=== PATIENT | male | born 1995 | race Caucasian/White ===

== ENCOUNTER 2021-05-12 20:30 | Inpatient (IN) | payer MEDICAID, OTHER ==
--- NOTE | 2021-05-12 21:46 | ED ---
Psych HPI - General Chief Complaint: Psychiatric Symptoms Stated Complaint: Mental Health Time Seen by Provider: 05/12/21 21:14 Source: patient, police Mode of arrival: ambulatory Limitations: no limitations - History of Present Illness Initial Comments: this patient is a 26-year-old man brought by law enforcement to have psychiatric evaluation. The patient does admit to making suicidal statements, but states that he had been drinking and he was upset. The patient states that he had attempted to report to alcohol rehabilitation today as a told him they may be able to get him into a program, but that after he got there they told him they could not put him in the program today. He is supposed to go back tomorrow instead. The patient states that he was a little upset about that, drank and made some statements out of frustration. MD Complaint: other -: hour(s) Associated Psychiatric Symptoms: none Quality: resolved prior to arrival Improves With: none Worsens With: none Context: recent alcohol abuse Associated Symptoms: denies other symptoms - Related Data Home Medications Medication Instructions Recorded Confirmed Cetirizine HCl [Zyrtec] 1 tab PO DAILY 05/13/21 05/13/21 Previous Rx's Medication Instructions Recorded Albuterol Inhaler [Ventolin Hfa 2 puff INHALATION Q4HR PRN #1 each 05/18/21 Inhaler] Folic Acid 1 mg PO DAILY 30 Days tab 05/18/21 Multivitamins, Thera [Multivitamin 1 each PO DAILY 30 Days tab 05/18/21 (formulary)] Nicotine 14Mg/24Hr Patch [Habitrol] 1 patch TRANSDERM DAILY 14 Days 05/18/21 patch Sertraline [Zoloft] 50 mg PO DAILY 30 Days tab 05/18/21 Thiamine [Vitamin B-1] 100 mg PO DAILY 30 Days tab 05/18/21 Allergies Allergy/AdvReac Type Severity Reaction Status Date / Time latex Allergy Rash/Hives Verified 05/13/21 15:12 Penicillins Allergy Rash/Hives Verified 05/13/21 05:09 Review of Systems ROS Statement: Those systems with pertinent positive or pertinent negative responses have been documented in the HPI. ROS Other: All systems not noted in ROS Statement are negative. Constitutional: Denies: fever, chills Respiratory: Denies: cough, dyspnea Cardiovascular: Denies: chest pain, palpitations Gastrointestinal: Denies: abdominal pain, vomiting, diarrhea Musculoskeletal: Denies: back pain Skin: Denies: rash Neurological: Denies: headache, weakness Psychiatric: Reports: as per HPI, depression. Denies: auditory hallucinations, visual hallucinations, homicidal thoughts, suicidal thoughts Past Medical History Past Medical History: Asthma History of Any Multi-Drug Resistant Organisms: None Reported Additional Past Surgical History / Comment(s): sinus surgery Past Psychological History: Anxiety Smoking Status: Current every day smoker Past Alcohol Use History: Abuse, Daily, Heavy Past Drug Use History: None Reported General Exam Limitations: no limitations General appearance: alert, in no apparent distress Head exam: Present: atraumatic, normocephalic Eye exam: Present: normal appearance. Absent: scleral icterus, conjunctival injection ENT exam: Present: normal oropharynx Respiratory exam: Present: normal lung sounds bilaterally. Absent: respiratory distress, wheezes, rales, rhonchi, stridor Cardiovascular Exam: Present: regular rate, normal rhythm, normal heart sounds. Absent: systolic murmur, diastolic murmur, rubs, gallop GI/Abdominal exam: Present: soft. Absent: distended, tenderness, guarding, rebound, rigid, mass Extremities exam: Present: normal inspection, normal capillary refill. Absent: pedal edema, calf tenderness Back exam: Present: normal inspection. Absent: CVA tenderness (R), CVA tenderness (L) Neurological exam: Present: alert Skin exam: Present: warm, dry, intact, normal color. Absent: rash Course Vital Signs 05/12/21 05/13/21 21:10 05:20 Temperature 98.1 F 98.7 F Pulse Rate 82 87 Respiratory 20 16 Rate Blood Pressure 128/82 137/87 O2 Sat by Pulse 100 100 Oximetry Medical Decision Making - Lab Data Result diagrams: 05/14/21 08:38 05/14/21 08:38 Lab Results 05/13/21 Range/Units 04:00 Coronavirus (PCR) Not Detected (Not Detectd) Disposition Clinical Impression: Mood disorder Disposition: ADMITTED IP TO THIS HOSP Condition: Stable
[2021-05-13] MEDS ORDERED: LORazepam 1 MG TAB PO STA (03:06)
[2021-05-13] MEDS ORDERED: MAG HYDROX/AL HYDROX/SIMETH 30 ML CUP PO PRN (05:00)
[2021-05-13] MEDS ORDERED: ACETAMINOPHEN TAB 325 MG TAB PO PRN (05:00)
[2021-05-13] MEDS ORDERED: LORazepam 1 MG TAB PO PRN (05:00)
[2021-05-13] MEDS ORDERED: MAGNESIUM HYDROXIDE 2,400 MG/10 ML CUP PO PRN (05:00)
[2021-05-13] MEDS ORDERED: LORazepam 2 MG/ML INJ IM PRN (05:03)
[2021-05-13] MEDS ORDERED: haloperidoL 5 MG TAB PO PRN (05:04)
[2021-05-13] MEDS ORDERED: HALOPERIDOL LACTATE 5 MG/ML 1 ML VIAL IM PRN (05:04)
[2021-05-13 05:22] VITALS: RESP 16
--- NOTE | 2021-05-13 06:14 | P.PN ---
Progress Note - Text Progress Note Date: 05/13/21 new consult to medical , patient arrived sedated at this time
[2021-05-13] MEDS: NICOTINE 14MG/24HR PATCH TRANSDERM SCH (08:48)
[2021-05-13] MEDS ORDERED: diazePAM 5 MG TAB PO SCH (09:00)
--- NOTE | 2021-05-13 12:35 | P.HP ---
Psychiatric H&P - . 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 HPI: Patient presented to the hospital yesterday on a petition filled out by his . The petition claims that patient made suicidal threats and has a history of depression and anxiety and has been drinking 6 significant amount of alcohol recently. Patient was admitted involuntarily to the mental health unit. Patient has a significant history of drinking alcohol and claims that he drinks around a fifth of whiskey a day or more. He claims that he has been drinking heavily for the past 3 months however has been also drinking significantly for the past 2 years. He states that at home he has been fighting more with his about his drinking and claims that he was putting his gun on top of the fridge when he got the gun and top to on his head and states "maybe we can make it easier" referring to shooting himself and his called the emergency department director as she was worried about him. He states that "I would never shoot myself I have kids". He states that he does have on and off depression however at this time he feels "paranoid" however is reporting some anxiety. He states that his sleep has been "on and off". He claims that his appetite is fair. He states that his last drink was yesterday and is having some shaking however denies any history of DTs at this time or seizures from withdrawal. He claims that he does have a intake appointment at [facility] scheduled for tomorrow morning as he wants to get into rehab. Patient denies any suicidal or homicidal ideations intent or plan. At this time patient denies any auditory or visual hallucinations. Patient denies any flight of ideas racing thoughts and increased in goal directed behavior. Patient admits to using alcohol as noted above and cigarettes daily. PAST PSYCHIATRIC HISTORY: Patient states that he has a history of depression and anxiety. He was previously on Zoloft which she found helpful. Things that he has been off of Zoloft for over a year now. Patient denies any previous psychiatric hospitalizations. Patient denies any psychiatric outpatient follow- up. Patient denies any history of suicide attempts in the past. PMH: Asthma ALLERGIES: as per EMR CHEMICAL DEPENDENCY HISTORY: as per HPI FAMILY PSYCHIATRIC/SUBSTANCE USE HISTORY: States that his mother has bipolar disorder. He states that a lot of people in his family have alcohol abuse problems. SOCIAL HISTORY: Patient was born and raised in [place] at an early age and moved to [place] afterwards with his family. He states that he completed the 11th grade then dropped out and started working. 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 He states that he also went to a [facility] as a kid. He claims that he currently lives with his in a trailer has 2 kids. MENTAL STATUS EXAM: General Appearance: Patient appears to be thin, shaved head, stated age is alert, directable, and attempts to cooperate. Patient appears to have fair hygiene and grooming. Behavior: Patient is seated without any agitated behavior. Mild tremors mildly anxious. Speech: Patient's speech is fluent and nonpressured. Mood/Affect: Patient reports their mood is "anxious", affect is congruent and constricted. Suicidality/Homicidality: Patient denies having any homicidal ideation intent or plan. Denies any suicidal ideations intent or plan Perceptions: Patient denies any visual hallucinations and denies any auditory hallucinations Though content/process: There is no evidence of any delusional thought content and thought process is linear and goal-directed. Minimizing his need for treatment. Memory and concentration: AOX3, grossly intact for the purposes of this session. Can spell "WORLD" backwards Judgment and insight: poor STRENGTHS/WEAKNESSES: strength is that patient is resilient. Weakness is that patient has poor judgment and is impulsive INTELLECT: average IMPRESSIONS: Major depressive disorder, without psychotic features Anxiety disorder unspecified Alcohol use disorder, severe, currently in withdrawal Nicotine dependence PLAN: -Patient is admitted under voluntary status to MHU for stabilization of psychiatric symptoms and safety. Patient has signed adult voluntary form and medication consent and is placed in patient's chart. -Medications : Will start patient on Zoloft 50 mg daily for mood/anxiety. Spoke with patient about either acamprosate or naltrexone to help control cravings however patient will think about it at this time. Valium scheduled 10 mg every 6 hours for alcohol withdrawal. -Ativan and Haldol PRN for agitation/aggression -Started thiamine, MVM for etoh use -CIWA protocol with Ativan PRN for ETOH withdrawal -Patient was informed of the risks, benefits and side effects of the medication and patient verbally consented to taking the medications. Patient signed med consent form and was placed in chart. -Internal Medicine consult to perform medical evaluation and physical. -NRT - nicotine patch -SW on board for discharge planning. Encourage patient to participate in groups to work on coping skills. Patient currently has an intake appointment at [facility] scheduled for tomorrow however will likely need to be pushed back a few days due to patient's severe withdrawals.
[2021-05-13] MEDS: THIAMINE 100 MG TAB PO SCH (12:47)
[2021-05-13] MEDS: FOLIC ACID 1 MG TAB PO SCH (12:47)
[2021-05-13] MEDS: diazePAM 5 MG TAB PO SCH ×2 (12:47→17:10)
[2021-05-13] MEDS: MULTIVITAMINS, THERA 1 EACH TAB PO SCH (12:47)
[2021-05-13] MEDS: SERTRALINE 50 MG TAB PO SCH (12:47)
[2021-05-14] MEDS: diazePAM 5 MG TAB PO SCH ×4 (00:13→21:54)
[2021-05-14] MEDS: THIAMINE 100 MG TAB PO SCH (08:16)
[2021-05-14] MEDS: MULTIVITAMINS, THERA 1 EACH TAB PO SCH (08:16)
[2021-05-14] MEDS: SERTRALINE 50 MG TAB PO SCH (08:16)
[2021-05-14] MEDS: FOLIC ACID 1 MG TAB PO SCH (08:16)
[2021-05-14] MEDS: NICOTINE 14MG/24HR PATCH TRANSDERM SCH (08:16)
[2021-05-14 09:27] LABS: Basophils % (A) 1 %; Eosinophils # (A) 0.5 k/uL (0-0.7); Eosinophils % (A) 10 %; HCT 40.2 % (39.0-53.0); HGB 13.4 gm/dL (13.0-17.5); Lymphocytes # (A) 1.4 k/uL (1.0-4.8); Lymphocytes % (A) 27 %; MCH 33.2 pg (25.0-35.0); MCHC 33.3 g/dL (31.0-37.0); MCV 99.5 fL (80.0-100.0); Mean Platelet Volume 8.2; Monocytes # (A) 0.4 k/uL (0-1.0); Monocytes % (A) 7 %; Neutrophils # (A) 2.8 k/uL (1.3-7.7); Neutrophils % (A) 53 %; Platelet Count 201 k/uL (150-450); RBC 4.04 m/uL (4.30-5.90); WBC 5.2 k/uL (3.8-10.6)
[2021-05-14 09:40] LABS: ALT 52 U/L (4-49); AST 125 U/L (17-59); African American GFR (CKD) >90 (>60 ml/min/1.73 sqM); Albumin 4.4 g/dL (3.5-5.0); Alkaline Phosphatase 134 U/L (38-126); Anion Gap 8 mmol/L; Blood Urea Nitrogen 8 mg/dL (9-20); Calcium 10.3 mg/dL (8.4-10.2); Carbon Dioxide 26 mmol/L (22-30); Chloride 106 mmol/L (98-107); Glucose 100 mg/dL (74-99); Non-African American GFR(CKD) >90 (>60 ml/min/1.73 sqM); Potassium 4.6 mmol/L (3.5-5.1); Sodium 140 mmol/L (137-145); Total Bilirubin 1.2 mg/dL (0.2-1.3); Total Protein 7.6 g/dL (6.3-8.2)
--- NOTE | 2021-05-14 09:49 | P.PN ---
Progress Note - Text Progress Note Date: 05/14/21 Interval History: Patient was seen [wandering the hallways] and was directable and agreeable to speak with continuity writer in the office. Patient claims that he is doing a bit better today in terms of his mood and anxiety. He states that his withdrawal symptoms have been improving since being on the Valium. He claims that he has been taking his Zoloft and finds that it has been helping him. He is denying any side effects at this time. He states that he slept fairly last night. He claims that he doesn't see the need to go to [facility] at this time however still stated that he would take a intake date. He claimed that he has been going to some groups and try to participate. At this time patient denies any suicidal or homical ideations, intent or plan. Patient denies any auditory, visual hallucinations and denies any paranoia or delusions. Patient denies any side effects from the medications and has been compliant with meds. Mental Status Exam: General Appearance: Patient appears to be thin, shaved head, stated age is alert, directable, and attempts to cooperate. Patient appears to have fair hygiene and grooming. Behavior: Patient is seated without any agitated behavior. Less anxious today Speech: Patient's speech is fluent and nonpressured. Mood/Affect: Patient reports their mood is "a bit better", affect is congruent and constricted. Suicidality/Homicidality: Patient denies having any homicidal ideation intent or plan. Denies any suicidal ideations intent or plan Perceptions: Patient denies any visual hallucinations and denies any auditory hallucinations Though content/process: There is no evidence of any delusional thought content and thought process is linear and goal-directed. Minimizing his need for treatment. Memory and concentration: AOX3, grossly intact for the purposes of this session. Judgment and insight: Improving mildly. Superficial at times. Assessment Major depressive disorder, without psychotic features Anxiety disorder unspecified Alcohol use disorder, severe, currently in withdrawal Nicotine dependence Plan: -Patient continues to meet criteria for inpatient psychiatric admission for symptom stabilization and safety. Patient has signed [adult voluntary form and] [medication consent] and was placed in patient's chart. -Medications: Continue Zoloft 50 mg daily for mood/anxiety. Patient claims that he does not want to take any acamprosate or naltrexone at this time as he feels he does not have any cravings. Decreased scheduled Librium to 10 mg 3 times a day for alcohol withdrawal and continue tapering down. -thiamine, MVM for etoh use -CIWA protocol with Ativan PRN for ETOH withdrawal -When necessary Ativan and Haldol for agitation/aggression. -NRT - [nicotine patch] -SW on board for discharge planning. Encouraged the patient to participate in milieu. Patient is still awaiting a intake date at [facility] however states that he does not want to go there directly from the hospital. Likely discharge tomorrow vs. early next week,
[2021-05-14 16:54] LABS: Hemoglobin A1C 5.1 % (4.0-6.0)
[2021-05-15] MEDS: FOLIC ACID 1 MG TAB PO SCH (07:55)
[2021-05-15] MEDS: diazePAM 5 MG TAB PO SCH ×2 (07:55→21:13)
[2021-05-15] MEDS: NICOTINE 14MG/24HR PATCH TRANSDERM SCH (07:55)
[2021-05-15] MEDS: SERTRALINE 50 MG TAB PO SCH (07:56)
[2021-05-15] MEDS: THIAMINE 100 MG TAB PO SCH (07:56)
[2021-05-15] MEDS: MULTIVITAMINS, THERA 1 EACH TAB PO SCH (07:56)
--- NOTE | 2021-05-15 13:05 | PN ---
PROGRESS NOTE DATE OF SERVICE: 05/15/2021 CHIEF COMPLAINT: The patient was admitted on [facility] for depression and anxiety. He was drinking heavily for the past 3 months. INTERVAL HISTORY: The patient has been doing fair. He had a quiet day yesterday. He comes out on the unit. He tends to have a reserved manner though does interact with staff and peers. He has been attending groups and seems to engage in the groups. His CIWA scores have been low. He said that he slept fairly well last night. He says today that sleep has never really been an issue for him. He notes that his drinking history goes back over the last two years, and prior to that he drank almost nothing. He said that there are alcohol issues with both his parents and other family members, so it has been a significant issue for him. He acknowledges that he got into drinking in the last two years, mainly as something social. He acknowledges that he has been drinking a significant amount. He has not been in prior substance abuse treatment. He has made contact with [facility] and has an intake set up for Tuesday. Vital signs have been fairly stable. Vital signs last evening included BP 136/82 with a pulse of 79. CIWA scores have been low. He continues on Valium for detox prevention. He tolerates his psychotropic medications. It is noted that the patient has had a long history of anxiety problems going back to childhood. He said much of the anxiety would get focused on his worrying about some physical health issue. He said even as a young person, if he had some chest pain, he would start thinking he had a heart attack. He acknowledges there were stress issues in his home growing up. MENTAL STATUS: Patient gave fairly good eye contact. He was somewhat restless. He answered questions with brief responses. He did not say a lot. He did ask a few appropriate questions. His affect was flat, his mood reserved. He was somewhat distressed. There was no indication of thought disorder. He voiced no thoughts of harm. Cognition was clear. ASSESSMENT: I will continue the current diagnosis and treatment plan. I will reduce the patient's Valium and go down to 5 mg twice a day with his next dose tonight at 2100 hours. He will receive 5 mg b.i.d. Depending on how he does tomorrow, we could look at possibly discontinuing the Valium altogether. I will continue Zoloft 50 mg a day. I had an extensive discussion with the patient regarding withdrawal issues as well as treatment for anxiety and depression issues. We talked about the time course and expectations through early withdrawal. We talked about the treatment process with antidepressants for anxiety, panic and depression, which the patient has struggled with. We will focus on stabilization and discharge planning. SOULEYMANE / ALEXANDREA: [id number] /
[2021-05-16] MEDS: SERTRALINE 50 MG TAB PO SCH (08:17)
[2021-05-16] MEDS: THIAMINE 100 MG TAB PO SCH (08:17)
[2021-05-16] MEDS: MULTIVITAMINS, THERA 1 EACH TAB PO SCH (08:17)
[2021-05-16] MEDS: NICOTINE 14MG/24HR PATCH TRANSDERM SCH (08:17)
[2021-05-16] MEDS: FOLIC ACID 1 MG TAB PO SCH (08:17)
[2021-05-16] MEDS: diazePAM 5 MG TAB PO SCH (08:17)
[2021-05-16] MEDS ORDERED: diazePAM 5 MG TAB PO SCH (09:00)
[2021-05-16] MEDS ORDERED: OLANZapine 5 MG TAB PO PRN (16:47)
--- NOTE | 2021-05-16 18:06 | PN ---
PROGRESS NOTE DATE OF SERVICE: 05/16/2021 CHIEF COMPLAINT: The patient was admitted on [facility] for depression and anxiety. He was drinking heavily for the past three months. INTERVAL HISTORY: The patient has been doing fairly well. He had a quiet day yesterday. He comes out on the unit. He interacts with others. He has been attending groups and generally seems to engage well in groups. He tends to have a quiet manner. He had CIWA scores yesterday of 0. The same is the case today. He slept fairly well last night. Today he has been up and continues doing fairly well. He is focused on the plan to go to [facility]. He has an intake appointment on Tuesday in the morning time. He says he is positive about entering the program. He says that he has not been in any substance use treatment program before. He notes that his is very supportive of him going into the program. He has had stable vital signs. He tolerates his psychotropic medications. He has a fairly good on understanding an expectation in regard to withdrawal issues. MENTAL STATUS EXAM: Patient sat with a little restlessness. He gave good eye contact. He answered questions appropriately. He did not say a lot. His thoughts were clear and coherent. His affect was somewhat blunted. He had a quiet manner. His mood was reserved though not clearly down or depressed. He did not appear to be significantly distressed. There was no indication of thought disorder. He denied thoughts of harm. Cognition was clear. ASSESSMENT: I will continue the current diagnosis and treatment plan. I will continue psychotropic medications the same. The patient did ask about the option of medications if he does have significant anxiety issues. As such, I will start him on Zyprexa 5 mg twice a day p.r.n. It is noted that he is progressing through the risk period for detox and is not having an indication for continuing with benzodiazepines. I briefly discussed expectations related to the treatment program. I anticipate the patient will be discharged on Tuesday. SOULEYMANE / ALEXANDREA: [id number] /
[2021-05-17] MEDS: SERTRALINE 50 MG TAB PO SCH (08:57)
[2021-05-17] MEDS: THIAMINE 100 MG TAB PO SCH (08:57)
[2021-05-17] MEDS: MULTIVITAMINS, THERA 1 EACH TAB PO SCH (08:57)
[2021-05-17] MEDS: NICOTINE 14MG/24HR PATCH TRANSDERM SCH (08:57)
[2021-05-17] MEDS: FOLIC ACID 1 MG TAB PO SCH (08:57)
--- NOTE | 2021-05-17 10:59 | PN ---
PROGRESS NOTE DATE OF SERVICE: 05/17/2021. CHIEF COMPLAINT: The patient was admitted on [facility] for depression and anxiety. He was drinking heavily for the past 3 months. INTERVAL HISTORY: The patient has been doing fairly well. He had a quiet day yesterday. He comes out on the unit. He does interact with peers. He has been appropriate in his interactions with staff and peers. He attended 2 other groups yesterday and seemed to do reasonably well in the groups. He said he slept fairly well last night. Today he has been up and continues to do about the same. He asked questions about his medications and followup plans. He wondered if he would be getting a prescription for his medications when he leaves. He seems to have good awareness as to the time course that it may take for antidepressant therapy to be effective given that he is going to be dealing with substance withdrawal issues for at least several weeks. He continues to have motivation towards his intake appointment at [facility]. He has been in touch with his family and says that his is supportive. He tolerates his psychotropic medications. MENTAL STATUS: Patient gave good eye contact. He was a little restless. He answered questions appropriately. His thoughts were clear. His affect was just a little constricted though not significantly so. He had a quiet mood. He did not appear to be down or depressed. He did seem distressed. There was no indication of thought disorder. Cognition was clear. ASSESSMENT: I will continue the current diagnosis and treatment plan. Continue psychotropic medications the same. I briefly reviewed medications and the longer-term course for antidepressant therapy. We discussed issues relating to the treatment program at [facility]. I would anticipate the patient being discharged tomorrow. We will focus on stabilization and discharge planning. SOULEYMANE / ALEXANDREA: [id number] /
[2021-05-18 07:21] VITALS: BP 105/72; PULSE 56; TEMP 97.5
[2021-05-18] MEDS: THIAMINE 100 MG TAB PO SCH (08:47)
[2021-05-18] MEDS: SERTRALINE 50 MG TAB PO SCH (08:47)
[2021-05-18] MEDS: FOLIC ACID 1 MG TAB PO SCH (08:47)
[2021-05-18] MEDS: MULTIVITAMINS, THERA 1 EACH TAB PO SCH (08:47)
[2021-05-18] MEDS: NICOTINE 14MG/24HR PATCH TRANSDERM SCH (08:47)
--- NOTE | 2021-05-18 09:16 | P.DS ---
Providers Date of admission: 05/13/21 04:58 Expected date of discharge: 05/18/21 Attending physician: Hai Mcwilliams MD Consults: 05/13/21 05:00 Consult Physician Routine Consulting Provider: Sonia Hagan Consult Reason/Comments: For H & P for Medical Follow Up Do you want consulting provider notified?: Yes Primary care physician: Perez Morel - Discharge Diagnosis(es) (1) Major depressive disorder without psychotic features Current Visit: Yes Status: Acute Priority: High (2) Anxiety disorder Current Visit: Yes Status: Acute Priority: High (3) Alcohol use disorder, severe, dependence Current Visit: Yes Status: Acute Priority: High (4) Nicotine dependence Current Visit: Yes Status: Acute Priority: Low Hospital Course: Admission HPI: Admission note was completed by script writer "Patient is a 26-year-old male who currently lives with his in a trailer has 2 kids 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 Patient presented to the hospital yesterday on a petition filled out by his . The petition claims that patient made suicidal threats and has a history of depression and anxiety and has been drinking 6 significant amount of alcohol recently. Patient was admitted involuntarily to the mental health unit. Patient has a significant history of drinking alcohol and claims that he drinks around a fifth of whiskey a day or more. He claims that he has been drinking heavily for the past 3 months however has been also drinking significantly for the past 2 years. He states that at home he has been fighting more with his about his drinking and claims that he was putting his gun on top of the fridge when he got the gun and top to on his head and states "maybe we can make it easier" referring to shooting himself and his called the senior catering sales manager as she was worried about him. He states that "I would never shoot myself I have kids". He states that he does have on and off depression however at this time he feels "paranoid" however is reporting some anxiety. He states that his sleep has been "on and off". He claims that his appetite is fair. He states that his last drink was yesterday and is having some shaking however denies any history of DTs at this time or seizures from withdrawal. He claims that he does have a intake appointment at [facility] scheduled for tomorrow morning as he wants to get into rehab. Patient denies any suicidal or homicidal ideations intent or plan. At this time patient denies any auditory or visual hallucinations. Patient denies any flight of ideas racing thoughts and increased in goal directed behavior. Patient admits to using alcohol as noted above and cigarettes daily." Hospital course: Upon admission to the unit patient was initially depressed and going through withdrawal symptoms from heavy alcohol use. Patient was however directable and agreeable to commence treatment and signed adult voluntary form. Patient got along well with other patients on the unit and followed unit protocol. Patient was compliant with the medications and denied any side effects throughout hospital course. Patient was started on CIWA protocol with when necessary Ativan for alcohol withdrawal. Patient was also given vitamins thiamine multi vitamin and also folic acid. Patient was also started on scheduled Valium for alcohol withdrawal which was gradually titrated down over the course of his hospitalization and then discontinued. Patient was started on Zoloft 50 mg daily for mood/anxiety. Patient was offered naltrexone or acamprosate however declined for alcohol cravings. Patient spoke of his stressors and engaged in therapy both group and individual. Patient was also seen by medical team for history and physical exam. Throughout the course of the hospitalization patient gradually improved with regards to mood, anxiety, withdrawal symptoms, sleep and became more future oriented with improved insight and judgment. On the day of discharge patient denied any suicidal or homicidal ideations intent or plan denied any auditory or visual hallucinations. Patient endorsed wanting to live for his health and family. Patient denied any paranoia and did not endorse any delusions. Patient does have a significant history of substance abuse and was counseled on abstaining from all substances including alcohol and marijuana. Patient was offered inpatient rehab at [facility] and is up getting a intake date for inpatient rehab on Tuesday of this coming week and patient will stay at home until his intake date which his will take him 2. Patient was also counseled on the medications and need for regular compliance and was encouraged to follow-up with their outpatient appointment for mental health and also for primary care. Prior to discharge a family meeting will be arranged by manager social media to answer any questions and ensure safety upon discharge. Mental status exam: General Appearance: Patient appears to be thin, shaved head, stated age is alert, pleasant, and cooperative. Patient is in no acute distress and has improved hygiene and grooming Behavior: Patient is calmly seated without any agitated behavior. Speech: Patient's speech is fluent and nonpressured. Mood/Affect: Patient reports their mood is "better", affect is congruent Suicidality/Homicidality: Patient denies having any suicidal or homicidal ideation intent or plan. Perceptions: Patient denies any auditory or visual hallucinations. Though content/process: There is no evidence of any delusional thought content and thought process is linear and goal-directed. More future oriented. Memory and concentration: AOX3, grossly intact for the purposes of this session. Can spell "WORLD" backwards correctly. Judgment and insight: chronically poor, however has improved with guarded prognosis Impression: Major depressive disorder, without psychotic features Anxiety disorder unspecified Alcohol dependence severe Nicotine dependence Plan: -Continue with discharge today as patient has improved and stabilized psychiatrically and is not currently an imminent threat to himself and/or others. Patient will remain at chronically elevated risk for harm to self and/or others due to his impulsivity and substance abuse. -Continue medications: Zoloft 50 mg daily for mood/anxiety. Thiamine, folic acid and multivitamin can be continued. Patient was titrated off of standing dose of Valium. He was also offered naltrexone or acamprosate for alcohol cravings however declined. -Patient was counseled on the need for medication compliance and appropriate follow-up at mental health and also primary care for medical issues. Patient verbalized understanding and agreed. -Social work to [arrange for and conduct family meeting to ensure safety upon discharge and answer any questions/concerns.] Social work also to arrange for patients follow up appointments for psychiatric care along with follow up with primary care provider. -Patient counseled on abstaining from recreational drugs and marijuana and al cohol. Was informed/educated on the adverse effects on their physical and mental health. [Patient verbally agreed and understood]. Patient has an intake date at [facility] on 05/20/21 which he'll be driven to by his . -Patient was instructed to return to the hospital or seek immediate medical care if their psychiatric or medical symptoms do worsen or reoccur. Allergies Allergy/AdvReac Type Severity Reaction Status Date / Time latex Allergy Rash/Hives Verified 05/13/21 15:12 Penicillins Allergy Rash/Hives Verified 05/13/21 05:09 Laboratory Results WBC 5.2 k/uL (3.8-10.6) 05/14/21 08:38 RBC 4.04 m/uL (4.30-5.90) L 05/14/21 08:38 Hgb 13.4 gm/dL (13.0-17.5) 05/14/21 08:38 Hct 40.2 % (39.0-53.0) 05/14/21 08:38 MCV 99.5 fL (80.0-100.0) 05/14/21 08:38 MCH 33.2 pg (25.0-35.0) 05/14/21 08:38 MCHC 33.3 g/dL (31.0-37.0) 05/14/21 08:38 RDW 13.0 % (11.5-15.5) 05/14/21 08:38 Plt Count 201 k/uL (150-450) 05/14/21 08:38 MPV 8.2 05/14/21 08:38 Neutrophils % 53 % 05/14/21 08:38 Lymphocytes % 27 % 05/14/21 08:38 Monocytes % 7 % 05/14/21 08:38 Eosinophils % 10 % 05/14/21 08:38 Basophils % 1 % 05/14/21 08:38 Neutrophils # 2.8 k/uL (1.3-7.7) 05/14/21 08:38 Lymphocytes # 1.4 k/uL (1.0-4.8) 05/14/21 08:38 Monocytes # 0.4 k/uL (0-1.0) 05/14/21 08:38 Eosinophils # 0.5 k/uL (0-0.7) 05/14/21 08:38 Basophils # 0.0 k/uL (0-0.2) 05/14/21 08:38 Sodium 140 mmol/L (137-145) 05/14/21 08:38 Potassium 4.6 mmol/L (3.5-5.1) 05/14/21 08:38 Chloride 106 mmol/L (98-107) 05/14/21 08:38 Carbon Dioxide 26 mmol/L (22-30) 05/14/21 08:38 Anion Gap 8 mmol/L 05/14/21 08:38 BUN 8 mg/dL (9-20) L 05/14/21 08:38 Creatinine 0.85 mg/dL (0.66-1.25) 05/14/21 08:38 Est GFR (CKD-EPI)AfAm >90 (>60 ml/min/1.73 sqM) 05/14/21 08:38 Est GFR (CKD-EPI)NonAf >90 (>60 ml/min/1.73 sqM) 05/14/21 08:38 Glucose 100 mg/dL (74-99) H 05/14/21 08:[address] Glu mg/dL 100 05/14/21 08:38 Hemoglobin A1c 5.1 % (4.0-6.0) 05/14/21 08:38 Calcium 10.3 mg/dL (8.4-10.2) H 05/14/21 08:38 Total Bilirubin 1.2 mg/dL (0.2-1.3) 05/14/21 08:38 AST 125 U/L (17-59) H 05/14/21 08:38 ALT 52 U/L (4-49) H 05/14/21 08:38 Alkaline Phosphatase 134 U/L (38-126) H 05/14/21 08:38 Total Protein 7.6 g/dL (6.3-8.2) 05/14/21 08:38 Albumin 4.4 g/dL (3.5-5.0) 05/14/21 08:38 TSH 1.030 mIU/L (0.465-4.680) 05/14/21 08:38 Coronavirus (PCR) Not Detected (Not Detectd) 05/13/21 04:00 Vital Signs Temp 97.5 F L 05/18/21 06:59 Pulse 56 L 05/18/21 06:59 Resp 16 05/18/21 06:59 BP 105/72 05/18/21 06:59 Pulse Ox 100 05/13/21 05:31 Patient Condition at Discharge: Stable Plan - Discharge Summary Discharge Rx Participant: No New Discharge Prescriptions: New Nicotine 14Mg/24Hr Patch [Habitrol] 1 patch TRANSDERM DAILY 14 Days patch Multivitamins, Thera [Multivitamin (formulary)] 1 each PO DAILY 30 Days tab Sertraline [Zoloft] 50 mg PO DAILY 30 Days tab Folic Acid 1 mg PO DAILY 30 Days tab Thiamine [Vitamin B-1] 100 mg PO DAILY 30 Days tab Continue Cetirizine HCl [Zyrtec] 1 tab PO DAILY Albuterol Inhaler [Ventolin Hfa Inhaler] 2 puff INHALATION Q4HR PRN #1 each PRN Reason: Shortness Of Breath Or Wheezing Discontinued Sertraline [Zoloft] 50 mg PO DAILY Discharge Medication List Cetirizine HCl [Zyrtec] 1 tab PO DAILY 05/13/21 [History] Albuterol Inhaler [Ventolin Hfa Inhaler] 2 puff INHALATION Q4HR PRN #1 each 05/18/21 [Rx] Folic Acid 1 mg PO DAILY 30 Days tab 05/18/21 [Rx] Multivitamins, Thera [Multivitamin (formulary)] 1 each PO DAILY 30 Days tab 05/18/21 [Rx] Nicotine 14Mg/24Hr Patch [Habitrol] 1 patch TRANSDERM DAILY 14 Days patch 05/18/21 [Rx] Sertraline [Zoloft] 50 mg PO DAILY 30 Days tab 05/18/21 [Rx] Thiamine [Vitamin B-1] 100 mg PO DAILY 30 Days tab 05/18/21 [Rx] Follow up Appointment(s)/Referral(s): [facility] [Outside] - 05/20/21 12:15 pm (intake) Perez Morel DO [Primary Care Provider] - 1-2 days Activity/Diet/Wound Care/Special Instructions: Activity and diet as tolerated. Avoid the use of street drugs and alcohol. Take all medications as prescribed. When you are in need of refills on your medications please contact your medical provider and/or outpatient psychiatrist to have this done. Please go to scheduled outpatient appointment for aftercare treatment. If symptoms return or become worse, call the crisis line at and/or go to the nearest emergency room for evaluation. Discharge Disposition: HOME SELF-CARE
== END 2021-05-18 12:25 | disposition home or self-care (01) | DRG 881 ==
LOC: EC 20:30 → 3MHU 05-13 04:58
PROVIDERS: ADMIT Psychiatry & Neurology Psychiatry; ATTEND Psychiatry & Neurology Psychiatry
DX: F32.9 Major depressive disorder, single episode, unspecified (principal); R45.851 Suicidal ideations; F10.239 Alcohol dependence with withdrawal, unspecified; F41.9 Anxiety disorder, unspecified; Z20.822 Contact with and (suspected) exposure to COVID-19; J45.909 Unspecified asthma, uncomplicated; R45.87 Impulsiveness; F17.210 Nicotine dependence, cigarettes, uncomplicated; Z71.6 Tobacco abuse counseling; Z79.899 Other long term (current) drug therapy; Z87.09 Personal history of other diseases of the respiratory system; Z71.41 Alcohol abuse counseling and surveillance of alcoholic; Z71.51 Drug abuse counseling and surveillance of drug abuser; Z98.890 Other specified postprocedural states; Z88.0 Allergy status to penicillin; Z91.040 Latex allergy status; Z81.8 Family history of other mental and behavioral disorders
CPT/HCPCS: 80053; 82075; 83036; 84443; 85025; 87635; 99285

== ENCOUNTER 2021-07-28 00:11 | Emergency (ER) | payer OTHER ==
[2021-07-28 00:18] VITALS: RESP 18
--- NOTE | 2021-07-28 00:44 | ED ---
Psych HPI - General Chief Complaint: Psychiatric Symptoms Stated Complaint: Mental Health Time Seen by Provider: 07/28/21 00:15 Source: patient Mode of arrival: ambulatory - Related Data Home Medications Medication Instructions Recorded Confirmed Cetirizine HCl [Zyrtec] 1 tab PO DAILY 05/13/21 05/13/21 Previous Rx's Medication Instructions Recorded Albuterol Inhaler [Ventolin Hfa 2 puff INHALATION Q4HR PRN #1 each 05/18/21 Inhaler] Folic Acid 1 mg PO DAILY 30 Days tab 05/18/21 Multivitamins, Thera [Multivitamin 1 each PO DAILY 30 Days tab 05/18/21 (formulary)] Nicotine 14Mg/24Hr Patch [Habitrol] 1 patch TRANSDERM DAILY 14 Days 05/18/21 patch Sertraline [Zoloft] 50 mg PO DAILY 30 Days tab 05/18/21 Thiamine [Vitamin B-1] 100 mg PO DAILY 30 Days tab 05/18/21 LORazepam [Ativan] 1 mg PO TID 3 Days #9 tab 07/28/21 Sertraline [Zoloft] 50 mg PO DAILY #30 tab 07/28/21 Allergies Allergy/AdvReac Type Severity Reaction Status Date / Time latex Allergy Rash/Hives Verified 07/28/21 00:18 Penicillins Allergy Rash/Hives Verified 07/28/21 00:18 Review of Systems ROS Statement: Those systems with pertinent positive or pertinent negative responses have been documented in the HPI. ROS Other: All systems not noted in ROS Statement are negative. Past Medical History Past Medical History: Asthma History of Any Multi-Drug Resistant Organisms: None Reported Additional Past Surgical History / Comment(s): sinus surgery Past Psychological History: Anxiety Smoking Status: Current every day smoker Past Alcohol Use History: Abuse, Daily, Heavy Past Drug Use History: None Reported General Exam Limitations: no limitations Course Vital Signs 07/28/21 00:14 Temperature 97.5 F L Pulse Rate 99 Respiratory 18 Rate Blood Pressure 106/72 O2 Sat by Pulse 99 Oximetry Disposition Clinical Impression: Anxiety disorder Disposition: HOME SELF-CARE Condition: Good Instructions (If sedation given, give patient instructions): Anxiety (ED), Anxiolysis in Adults (ED) Prescriptions: LORazepam [Ativan] 1 mg PO TID 3 Days #9 tab Sertraline [Zoloft] 50 mg PO DAILY #30 tab Is patient prescribed a controlled substance at d/c from ED?: No Referrals: None,Stated [REFERRING] - 1-2 days
[2021-07-28] MEDS ORDERED: ONDANSETRON ODT 4 MG TAB PO STA (01:50)
[2021-07-28] MEDS ORDERED: LORazepam 1 MG TAB PO STA (01:50)
[2021-07-28 02:11] VITALS: BP 118/69; PULSE 71; TEMP 97.8
== END 2021-07-28 02:12 | disposition home or self-care (01) ==
LOC: EC 00:11
DX: F41.9 Anxiety disorder, unspecified (principal); J45.909 Unspecified asthma, uncomplicated; F17.200 Nicotine dependence, unspecified, uncomplicated; Z79.51 Long term (current) use of inhaled steroids; Z79.899 Other long term (current) drug therapy; Z88.0 Allergy status to penicillin
CPT/HCPCS: 99283

== ENCOUNTER 2021-08-01 20:14 | Emergency (ER) | payer OTHER ==
[2021-08-01 20:20] VITALS: TEMP 98.4
[2021-08-01] MEDS ORDERED: SODIUM CHLORIDE 0.9% 1,000 ML IV STA (20:33)
[2021-08-01 21:07] LABS: Basophils % (A) 0 %; Eosinophils # (A) 0.1 k/uL (0-0.7); Eosinophils % (A) 1 %; HCT 41.8 % (39.0-53.0); HGB 14.4 gm/dL (13.0-17.5); Lymphocytes # (A) 1.8 k/uL (1.0-4.8); Lymphocytes % (A) 16 %; MCH 33.7 pg (25.0-35.0); MCHC 34.6 g/dL (31.0-37.0); MCV 97.5 fL (80.0-100.0); Mean Platelet Volume 8.7; Monocytes # (A) 0.7 k/uL (0-1.0); Monocytes % (A) 6 %; Neutrophils # (A) 8.8 k/uL (1.3-7.7); Neutrophils % (A) 75 %; Platelet Count 209 k/uL (150-450); RBC 4.28 m/uL (4.30-5.90); RDW 12.9 % (11.5-15.5); WBC 11.6 k/uL (3.8-10.6)
[2021-08-01 21:16] LABS: INR 0.9 (<1.2); Partial Thromboplastin Time 22.4 sec (22.0-30.0); Prothrombin Time 10.2 sec (9.0-12.0)
[2021-08-01 21:18] LABS: ALT 28 U/L (4-49); AST 49 U/L (17-59); African American GFR (CKD) >90 (>60 ml/min/1.73 sqM); Albumin 4.6 g/dL (3.5-5.0); Alkaline Phosphatase 124 U/L (38-126); Anion Gap 19 mmol/L; Blood Urea Nitrogen 5 mg/dL (9-20); Calcium 9.8 mg/dL (8.4-10.2); Carbon Dioxide 18 mmol/L (22-30); Chloride 109 mmol/L (98-107); Glucose 153 mg/dL (74-99); Non-African American GFR(CKD) >90 (>60 ml/min/1.73 sqM); Potassium 3.5 mmol/L (3.5-5.1); Sodium 146 mmol/L (137-145); Total Bilirubin 0.3 mg/dL (0.2-1.3); Total Protein 7.8 g/dL (6.3-8.2)
[2021-08-01 21:33] LABS: Amphetamine Screen,Urine Not Detected (NotDetected); Barbiturate Screen,Urine Not Detected (NotDetected); Benzodiazepines Screen,Urine Not Detected (NotDetected); Cocaine Screen,Urine Not Detected (NotDetected); Methadone Screen, Urine Not Detected (NotDetected); Opiate Screen,Urine Not Detected (NotDetected); Oxycodone Screen, Urine Not Detected (NotDetected); Phencyclidine Screen,Urine Not Detected (NotDetected); Tricyclic Antidepressant,Urine Not Detected (NotDetected); Urn Cannabinoid Scrn Not Detected (NotDetected)
[2021-08-01] MEDS ORDERED: SODIUM CHLORIDE 0.9% 1,000 ML IV ONE (21:34)
[2021-08-01 21:36] VITALS: RESP 18
--- NOTE | 2021-08-01 21:36 | XR ---
EXAMINATION TYPE: XR chest 2V DATE OF EXAM: 08/01/2021 COMPARISON: NONE HISTORY: Tachycardia TECHNIQUE: 2 views FINDINGS: Heart and mediastinum are normal. Lungs are clear. Diaphragm is normal. Bony thorax appears normal. There are chest leads. IMPRESSION: Normal chest.
--- NOTE | 2021-08-01 21:55 | ED ---
Arrhythmia/Palpitations HPI - General Chief Complaint: Arrhythmia/Palpitations Stated Complaint: Elevated heart rate Time Seen by Provider: 08/01/21 20:32 Source: patient Mode of arrival: ambulatory Limitations: no limitations - History of Present Illness Initial Comments: Blake is a 26yo alcoholic who reports heavy daily drinking for 3+ years, patient presents to the ER today with complaint of palpitations. Patient reports that he has frequent palpitations, however yesterday he noted his HR was 175, he sought care at an outside facility, he was given fluids and ativan and discharged home this morning. This evening he continues to have palpitations with HR in the 130s so he came here. Patient denies chest pain, SOB or syncope. - Related Data Home Medications Medication Instructions Recorded Confirmed Cetirizine HCl [Zyrtec] 1 tab PO DAILY 05/13/21 05/13/21 Previous Rx's Medication Instructions Recorded Albuterol Inhaler [Ventolin Hfa 2 puff INHALATION Q4HR PRN #1 each 05/18/21 Inhaler] Folic Acid 1 mg PO DAILY 30 Days tab 05/18/21 Multivitamins, Thera [Multivitamin 1 each PO DAILY 30 Days tab 05/18/21 (formulary)] Nicotine 14Mg/24Hr Patch [Habitrol] 1 patch TRANSDERM DAILY 14 Days 05/18/21 patch Sertraline [Zoloft] 50 mg PO DAILY 30 Days tab 05/18/21 Thiamine [Vitamin B-1] 100 mg PO DAILY 30 Days tab 05/18/21 LORazepam [Ativan] 1 mg PO TID 3 Days #9 tab 07/28/21 Naltrexone HCl [Revia] 50 mg PO DAILY #30 tablet 07/28/21 Sertraline [Zoloft] 50 mg PO DAILY #30 tab 07/28/21 Allergies Allergy/AdvReac Type Severity Reaction Status Date / Time latex Allergy Rash/Hives Verified 08/01/21 20:20 Penicillins Allergy Rash/Hives Verified 08/01/21 20:20 Review of Systems ROS Statement: Those systems with pertinent positive or pertinent negative responses have been documented in the HPI. ROS Other: All systems not noted in ROS Statement are negative. Past Medical History Past Medical History: Asthma Additional Past Medical History / Comment(s): covid 07/01/21 History of Any Multi-Drug Resistant Organisms: None Reported Additional Past Surgical History / Comment(s): sinus surgery Past Psychological History: Anxiety Smoking Status: Current every day smoker Past Alcohol Use History: Abuse, Daily, Heavy Past Drug Use History: None Reported General Exam Limitations: no limitations General appearance: alert, in no apparent distress Head exam: Present: atraumatic, normocephalic Eye exam: Present: normal appearance ENT exam: Present: normal exam Neck exam: Present: normal inspection Respiratory exam: Present: normal lung sounds bilaterally Cardiovascular Exam: Present: regular rate GI/Abdominal exam: Present: soft. Absent: distended, tenderness, guarding, rebound Rectal exam: Present: deferred Neurological exam: Present: alert, oriented X3 Psychiatric exam: Present: normal affect Skin exam: Present: warm, dry Course Vital Signs 08/01/21 08/01/21 20:16 21:34 Temperature 98.4 F Pulse Rate 134 H 93 Respiratory 22 18 Rate Blood Pressure 132/76 116/78 O2 Sat by Pulse 97 99 Oximetry EKG Findings - EKG Comments: EKG Findings:: EKG obtained due to tachycardia EKG obtained at 2030 Rate 129, sinus tachycardia, normal axis, normal intervals SC 154, QRS 90, QTC 433, No acute ST elevations or depressions, no evidence of acute ischemia, infarction or malignant arrhythmia. Medical Decision Making - Medical Decision Making Patient was seen and evaluated, HR improved after fluids Discussed with patient that HR is likely related to alcohol consumption and anxiety, recommend decreasing alcohol intake and following with cardiology for possible Holter monitor due to frequent palpitations. Patient awake, alert, oriented and hemodynamically stable. No indication for further emergent workup, patient stable for discharge home. - Lab Data Result diagrams: 08/01/21 20:49 08/01/21 20:49 Lab Results 08/01/21 08/01/21 08/01/21 Range/Units 20:49 20:49 20:49 WBC 11.6 H (3.8-10.6) k/uL RBC 4.28 L (4.30-5.90) m/uL Hgb 14.4 (13.0-17.5) gm/dL Hct 41.8 (39.0-53.0) % MCV 97.5 (80.0-100.0) fL MCH 33.7 (25.0-35.0) pg MCHC 34.6 (31.0-37.0) g/dL RDW 12.9 (11.5-15.5) % Plt Count 209 (150-450) k/uL MPV 8.7 Neutrophils % 75 % Lymphocytes % 16 % Monocytes % 6 % Eosinophils % 1 % Basophils % 0 % Neutrophils # 8.8 H (1.3-7.7) k/uL Lymphocytes # 1.8 (1.0-4.8) k/uL Monocytes # 0.7 (0-1.0) k/uL Eosinophils # 0.1 (0-0.7) k/uL Basophils # 0.0 (0-0.2) k/uL Sodium 146 H (137-145) mmol/L Potassium 3.5 (3.5-5.1) mmol/L Chloride 109 H (98-107) mmol/L Carbon Dioxide 18 L (22-30) mmol/L Anion Gap 19 mmol/L BUN 5 L (9-20) mg/dL Creatinine 0.72 (0.66-1.25) mg/dL Est GFR (CKD-EPI)AfAm >90 (>60 ml/min/1.73 sqM) Est GFR (CKD-EPI)NonAf >90 (>60 ml/min/1.73 sqM) Glucose 153 H (74-99) mg/dL Calcium 9.8 (8.4-10.2) mg/dL Magnesium 2.0 (1.6-2.3) mg/dL Total Bilirubin 0.3 (0.2-1.3) mg/dL AST 49 (17-59) U/L ALT 28 (4-49) U/L Alkaline Phosphatase 124 (38-126) U/L Troponin I (0.000-0.034) ng/mL Total Protein 7.8 (6.3-8.2) g/dL Albumin 4.6 (3.5-5.0) g/dL Urine Opiates Screen Not Detected (NotDetected) Ur Oxycodone Screen Not Detected (NotDetected) Urine Methadone Screen Not Detected (NotDetected) Ur Propoxyphene Screen Not Detected (NotDetected) Ur Barbiturates Screen Not Detected (NotDetected) U Tricyclic Antidepress Not Detected (NotDetected) Ur Phencyclidine Scrn Not Detected (NotDetected) Ur Amphetamines Screen Not Detected (NotDetected) U Methamphetamines Scrn Not Detected (NotDetected) U Benzodiazepines Scrn Not Detected (NotDetected) Urine Cocaine Screen Not Detected (NotDetected) U Marijuana (THC) Screen Not Detected (NotDetected) 08/01/21 Range/Units 20:49 WBC (3.8-10.6) k/uL RBC (4.30-5.90) m/uL Hgb (13.0-17.5) gm/dL Hct (39.0-53.0) % MCV (80.0-100.0) fL MCH (25.0-35.0) pg MCHC (31.0-37.0) g/dL RDW (11.5-15.5) % Plt Count (150-450) k/uL MPV Neutrophils % % Lymphocytes % % Monocytes % % Eosinophils % % Basophils % % Neutrophils # (1.3-7.7) k/uL Lymphocytes # (1.0-4.8) k/uL Monocytes # (0-1.0) k/uL Eosinophils # (0-0.7) k/uL Basophils # (0-0.2) k/uL Sodium (137-145) mmol/L Potassium (3.5-5.1) mmol/L Chloride (98-107) mmol/L Carbon Dioxide (22-30) mmol/L Anion Gap mmol/L BUN (9-20) mg/dL Creatinine (0.66-1.25) mg/dL Est GFR (CKD-EPI)AfAm (>60 ml/min/1.73 sqM) Est GFR (CKD-EPI)NonAf (>60 ml/min/1.73 sqM) Glucose (74-99) mg/dL Calcium (8.4-10.2) mg/dL Magnesium (1.6-2.3) mg/dL Total Bilirubin (0.2-1.3) mg/dL AST (17-59) U/L ALT (4-49) U/L Alkaline Phosphatase (38-126) U/L Troponin I <0.012 (0.000-0.034) ng/mL Total Protein (6.3-8.2) g/dL Albumin (3.5-5.0) g/dL Urine Opiates Screen (NotDetected) Ur Oxycodone Screen (NotDetected) Urine Methadone Screen (NotDetected) Ur Propoxyphene Screen (NotDetected) Ur Barbiturates Screen (NotDetected) U Tricyclic Antidepress (NotDetected) Ur Phencyclidine Scrn (NotDetected) Ur Amphetamines Screen (NotDetected) U Methamphetamines Scrn (NotDetected) U Benzodiazepines Scrn (NotDetected) Urine Cocaine Screen (NotDetected) U Marijuana (THC) Screen (NotDetected) Disposition Clinical Impression: Palpitations Disposition: HOME SELF-CARE Condition: Stable Instructions (If sedation given, give patient instructions): Heart Palpitations (ED) Is patient prescribed a controlled substance at d/c from ED?: No Referrals: Perez Morel DO [Primary Care Provider] - 1-2 days Geo Purcell MD [STAFF PHYSICIAN] - 1-2 days
[2021-08-01 22:23] VITALS: BP 122/84; PULSE 87
== END 2021-08-01 22:26 | disposition home or self-care (01) ==
LOC: EC 20:14
DX: R00.2 Palpitations (principal); J45.909 Unspecified asthma, uncomplicated; F41.9 Anxiety disorder, unspecified; F17.200 Nicotine dependence, unspecified, uncomplicated; Z91.040 Latex allergy status; Z88.0 Allergy status to penicillin
CPT/HCPCS: 36415; 71046; 80053; 80306; 83735; 84443; 84484; 85025; 85610; 85730; 93005; 96360; 96361; 99285

== ENCOUNTER 2021-09-28 22:00 | Inpatient (IN) | payer MEDICAID, OTHER ==
[2021-09-29 00:01] LABS: Amphetamine Screen,Urine Not Detected (NotDetected); Barbiturate Screen,Urine Not Detected (NotDetected); Benzodiazepines Screen,Urine Not Detected (NotDetected); Cocaine Screen,Urine Not Detected (NotDetected); Methadone Screen, Urine Not Detected (NotDetected); Opiate Screen,Urine Not Detected (NotDetected); Oxycodone Screen, Urine Not Detected (NotDetected); Phencyclidine Screen,Urine Not Detected (NotDetected); Tricyclic Antidepressant,Urine Not Detected (NotDetected); Urn Cannabinoid Scrn Not Detected (NotDetected)
--- NOTE | 2021-09-29 02:54 | ED ---
Psych HPI - General Chief Complaint: Psychiatric Symptoms Stated Complaint: Mental Health Time Seen by Provider: 09/28/21 22:13 Source: patient Mode of arrival: ambulatory - History of Present Illness Initial Comments: 26-year-old male presents emergency Department with report of suicidal ideations. States for the past several days he has had worsening depression with feelings of hopelessness. Denies any specific plan. No homicidal ideations. He has been previously hospitalized for depression. Reports that he is supposed to be taking Lexapro however is not compliant. He follows in the outpatient setting with [facility]. Due to his worsening depression he presents today for psychiatric evaluation. He does admit to drinking prior to presentation. - Related Data Home Medications Medication Instructions Recorded Confirmed No Known Home Medications 09/28/21 09/28/21 Allergies Allergy/AdvReac Type Severity Reaction Status Date / Time latex Allergy Rash/Hives Verified 09/28/21 22:41 Penicillins Allergy Rash/Hives Verified 09/28/21 22:41 Review of Systems ROS Statement: Those systems with pertinent positive or pertinent negative responses have been documented in the HPI. ROS Other: All systems not noted in ROS Statement are negative. Past Medical History Past Medical History: Asthma Additional Past Medical History / Comment(s): covid 07/01/21 History of Any Multi-Drug Resistant Organisms: None Reported Additional Past Surgical History / Comment(s): sinus surgery Past Psychological History: Anxiety Smoking Status: Current every day smoker Past Alcohol Use History: Abuse, Daily, Heavy Past Drug Use History: None Reported General Exam General appearance: alert, in no apparent distress Head exam: Present: atraumatic, normocephalic, normal inspection Eye exam: Present: normal appearance, PERRL, EOMI. Absent: scleral icterus, conjunctival injection, periorbital swelling ENT exam: Present: normal exam, mucous membranes moist Neck exam: Present: normal inspection. Absent: tenderness, meningismus, lymphadenopathy Respiratory exam: Present: normal lung sounds bilaterally. Absent: respiratory distress, wheezes, rales, rhonchi, stridor Cardiovascular Exam: Present: regular rate, normal rhythm, normal heart sounds. Absent: systolic murmur, diastolic murmur, rubs, gallop, clicks GI/Abdominal exam: Present: soft, normal bowel sounds. Absent: distended, tenderness, guarding, rebound, rigid Extremities exam: Present: normal inspection, full ROM, normal capillary refill. Absent: tenderness, pedal edema, joint swelling, calf tenderness Back exam: Present: normal inspection Neurological exam: Present: alert, oriented X3, CN II-XII intact Psychiatric exam: Present: depressed Skin exam: Present: warm, dry, intact, normal color. Absent: rash Course Vital Signs 09/28/21 22:07 Temperature 98.1 F Pulse Rate 97 Respiratory 18 Rate Blood Pressure 131/88 O2 Sat by Pulse 100 Oximetry Medical Decision Making - Medical Decision Making Upon arrival patient is placed in room 5. Thorough history and physical exam was performed. Patient was swabbed for Covid. Requested urinalysis. Patient is intoxicated and will be sober at 3 AM. Patient will be evaluated by EPS at this time. - Lab Data Lab Results 09/28/21 09/28/21 Range/Units 22:59 23:20 Urine Opiates Screen Not Detected (NotDetected) Ur Oxycodone Screen Not Detected (NotDetected) Urine Methadone Screen Not Detected (NotDetected) Ur Propoxyphene Screen Not Detected (NotDetected) Ur Barbiturates Screen Not Detected (NotDetected) U Tricyclic Antidepress Not Detected (NotDetected) Ur Phencyclidine Scrn Not Detected (NotDetected) Ur Amphetamines Screen Not Detected (NotDetected) U Methamphetamines Scrn Not Detected (NotDetected) U Benzodiazepines Scrn Not Detected (NotDetected) Urine Cocaine Screen Not Detected (NotDetected) U Marijuana (THC) Screen Not Detected (NotDetected) Coronavirus (PCR) Not Detected (Not Detectd) Disposition Referrals: Perez Morel DO [Primary Care Provider] - 1-2 days
[2021-09-29] MEDS ORDERED: ACETAMINOPHEN TAB 325 MG TAB PO PRN (05:21)
[2021-09-29] MEDS ORDERED: MAGNESIUM HYDROXIDE 2,400 MG/10 ML CUP PO PRN (05:21)
[2021-09-29] MEDS ORDERED: MAG HYDROX/AL HYDROX/SIMETH 30 ML CUP PO PRN (05:21)
[2021-09-29] MEDS ORDERED: LORazepam 1 MG TAB PO PRN ×3 (05:21)
[2021-09-29] MEDS ORDERED: LORazepam 2 MG/ML INJ IM PRN (05:26)
[2021-09-29 06:54] LABS: Appearance,Urine Clear (Clear); Bacteria,Urine Rare /hpf; Bilirubin,Urine Negative (Negative); Blood,Urine Negative (Negative); Color,Urine Light Yellow; Glucose,Urine (UA) Negative (Negative); Hyaline Casts,Urine 1 /lpf (0-2); Ketones,Urine Negative (Negative); Leukocyte Esterase,Urine Large (Negative); Mucus,Urine Occasional /hpf; Nitrite,Urine Negative (Negative); PH, Urine 6.5 (5.0-8.0); Protein,Urine Negative (Negative); RBC,Urine 1 /hpf (0-5); Specific Gravity,Urine 1.007 (1.001-1.035); Squamous Epithelial Cell,Urine <1 /hpf (0-4); Urobilinogen,Urine <2.0 mg/dL (<2.0); WBC,Urine 48 /hpf (0-5)
[2021-09-29] MEDS: NICOTINE 14MG/24HR PATCH TRANSDERM SCH (08:58)
[2021-09-29] MEDS: MULTIVITAMINS, THERA 1 EACH TAB PO SCH (08:59)
[2021-09-29] MEDS: FOLIC ACID 1 MG TAB PO SCH (08:59)
[2021-09-29] MEDS: diazePAM 5 MG TAB PO SCH ×3 (08:59→22:04)
[2021-09-29] MEDS: THIAMINE 100 MG TAB PO SCH (08:59)
[2021-09-29] MEDS ORDERED: chlordiazePOXIDE 25 MG CAP PO SCH (09:00)
[2021-09-29 11:55] VITALS: BMI 18.8
--- NOTE | 2021-09-29 12:51 | P.HPMEDMHU ---
<Osmar Bejarano - Last Filed: 09/29/21 12:38> History of Present Illness H&P Date: 09/29/21 Chief Complaint: Suicidal ideations History of Presenting Illness: Patient is a very pleasant 26-year-old male who presented to the emergency department on 09/28/21 with a chief complaint of suicidal ideations. He is currently admitted to the inpatient mental health unit and we have been consulted to evaluate patient and complete medical H&P for his admission. Patient seen and fully evaluated at the bedside on mental health unit with RN present. Patient reports history of depression and nicotine dependence smoking one pack of cigarettes daily as well as daily alcohol use/abuse reporting drinking a half of a fifth of whiskey along with 5+ beers daily. Patient reports last drink being 09/28/21 prior to presenting in the emergency department. Patient currently reports increased depression and thoughts of suicide, but denies current plan. Patient also denies having any headache, lightheadedness, dizziness, chest pain, palpitations, shortness of breath, nausea, vomiting, ana maría mors, diaphoresis, or experiencing any numbness/tingling/weakness in his extremities. Denies homicidal ideations or experiencing any visual, tactile, or auditory hallucinations. Review of systems: Pertinent positives and negatives as discussed in HPI, a complete review of systems was performed and all other systems are negative. Physical exam: Vital signs reviewed and stable. General: Nontoxic, no distress and appears stated age. Derm: Skin warm and dry, normal coloration for ethnicity. Head: Atraumatic, normocephalic and symmetric. Eyes: EOMs intact, no lid lag, and anicteric sclera Mouth: no lip lesions, mucus membranes moist Cardiovascular: regular rate and rhythm with normal S1S2, no murmur, positive posterior tibial pulses bilaterally, and cap refill < 2 seconds. Lungs: Respirations even, regular, and unlabored on room air. Lungs CTA bilaterally, no rhonchi, no rales, no wheezing, and no accessory muscle usage. Abdominal: soft, nontender to palpation, no guarding, no appreciable organomegaly Ext: ROM intact. No gross muscle atrophy, no edema, no contractures Neuro: Speech clear, face symmetrical and CN II-XII grossly intact with no noted focal neuro deficits Psych: Alert and oriented to person, place, time, and situation. Appropriate and pleasant affect. Assessment and Plan of Care: Alcohol abuse with impending withdrawal -[facility] protocol with symptom triggered medication management with benzodiazepines -Thiamine 100 mg daily -Multivitamin daily -Folate 1 mg daily -Seizure, fall, aspiration, and elopement precautions in place. -Urine drug screen negative -Continued close monitoring of electrolytes and replace as needed. -Telemetry monitoring. Suicidal ideations Depression Management per primary admitting psychiatric team. Maintain suicide precautions Nicotine dependence Encourage and educate the patient on the benefits of smoking cessation and the risks of continued use Nicotine Patch. Thank you for allowing us to participate in the care of this pleasant patient. Do not hesitate to contact us with questions. Someone can be reached from the [facility] hospitalist group all hours of the day at [phone] or via [employer]. Past Medical History Past Medical History: Asthma Additional Past Medical History / Comment(s): covid 07/01/21 History of Any Multi-Drug Resistant Organisms: None Reported Additional Past Surgical History / Comment(s): sinus surgery Past Psychological History: Anxiety, Depression Smoking Status: Current every day smoker Past Alcohol Use History: Abuse, Daily, Heavy Past Drug Use History: None Reported Medications and Allergies Home Medications Medication Instructions Recorded Confirmed Type No Known Home Medications 09/28/21 09/29/21 History Allergies Allergy/AdvReac Type Severity Reaction Status Date / Time latex Allergy Rash/Hives Verified 09/28/21 22:41 Penicillins Allergy Rash/Hives Verified 09/28/21 22:41 Physical Exam Vitals: Vital Signs Temp Pulse Pulse Resp BP BP Pulse Ox 09/29/21 08:00 98.1 F 109 H 20 128/85 100 09/29/21 05:58 97.8 F 86 16 139/87 98 09/29/21 05:56 84 18 134/83 96 09/29/21 02:00 16 09/28/21 22:07 98.1 F 97 18 131/88 100 Intake and Output 09/28/21 09/29/21 09/29/21 22:59 06:59 14:59 Other: Weight 58.967 kg 58.06 kg Cranial Nerve Examination - Cranial Nerves Cranial Nerve II- Optic: Intact Cranial Nerve III- Oculomotor: Intact Cranial Nerve IV- Trochlear: Intact Cranial Nerve V- Trigeminal: Intact Cranial Nerve - Abducens: Intact Cranial Nerve VII- Facial: Intact Cranial Nerve VIII- Auditory: Intact Cranial Nerve IX- Glossopharyngeal: Intact Cranial Nerve X- Vagus: Intact Cranial Nerve XI- Accessory: Intact Cranial Nerve XII- Hypoglossal: Intact Results Labs: Abnormal Lab Results - Last 24 Hours (Table) 09/28/21 Range/Units 23:20 Ur Leukocyte Esterase Large H (Negative) Urine WBC 48 H (0-5) /hpf Urine WBC Clumps Occasional H (None) /hpf Urine Bacteria Rare H (None) /hpf Urine Mucus Occasional H (None) /hpf <Verena Hendricks - Last Filed: 09/29/21 14:16> History of Present Illness I reviewed the documentation as provided by the FRANK above, who is the original author of this note. I agree with the documented assessment and plan, with the following changes: None Physical Exam Osteopathic Statement: *. No significant issues noted on an osteopathic structural exam other than those noted in the History and Physical/Consult. Vitals: Vital Signs Temp Pulse Pulse Resp BP BP Pulse Ox 09/29/21 08:00 98.1 F 109 H 20 128/85 100 09/29/21 05:58 97.8 F 86 16 139/87 98 09/29/21 05:56 84 18 134/83 96 09/29/21 02:00 16 09/28/21 22:07 98.1 F 97 18 131/88 100 Intake and Output 09/28/21 09/29/21 09/29/21 22:59 06:59 14:59 Other: Weight 58.967 kg 58.06 kg 58.06 kg Results Labs: Abnormal Lab Results - Last 24 Hours (Table) 09/28/21 Range/Units 23:20 Ur Leukocyte Esterase Large H (Negative) Urine WBC 48 H (0-5) /hpf Urine WBC Clumps Occasional H (None) /hpf Urine Bacteria Rare H (None) /hpf Urine Mucus Occasional H (None) /hpf
--- NOTE | 2021-09-29 13:53 | P.HP ---
Psychiatric H&P - . H&P Date: 09/29/21 History & Physical: Allergies Allergy/AdvReac Type Severity Reaction Status Date / Time latex Allergy Rash/Hives Verified 09/28/21 22:41 Penicillins Allergy Rash/Hives Verified 09/28/21 22:41 Vital Signs Temp 98.1 F 09/29/21 08:00 Pulse 109 H 09/29/21 08:00 Resp 20 09/29/21 08:00 BP 128/85 09/29/21 08:00 Pulse Ox 100 09/29/21 08:00 Intake & Output 09/28/21 09/29/21 09/29/21 18:59 06:59 18:59 Weight 58.06 kg 58.06 kg Laboratory Last Values Urine Color Light Yellow 09/28/21 23:20 Urine Appearance Clear (Clear) 09/28/21 23:20 Urine pH 6.5 (5.0-8.0) 09/28/21 23:20 Ur Specific Thompson 1.007 (1.001-1.035) 09/28/21 23:20 Urine Protein Negative (Negative) 09/28/21 23:20 Urine Glucose (UA) Negative (Negative) 09/28/21 23:20 Urine Ketones Negative (Negative) 09/28/21 23:20 Urine Blood Negative (Negative) 09/28/21 23:20 Urine Nitrite Negative (Negative) 09/28/21 23:20 Urine Bilirubin Negative (Negative) 09/28/21 23:20 Urine Urobilinogen <2.0 mg/dL (<2.0) 09/28/21 23:20 Ur Leukocyte Esterase Large (Negative) H 09/28/21 23:20 Urine RBC 1 /hpf (0-5) 09/28/21 23:20 Urine WBC 48 /hpf (0-5) H 09/28/21 23:20 Urine WBC Clumps Occasional /hpf (None) H 09/28/21 23:20 Ur Squamous Epith Cells <1 /hpf (0-4) 09/28/21 23:20 Urine Bacteria Rare /hpf (None) H 09/28/21 23:20 Hyaline Casts 1 /lpf (0-2) 09/28/21 23:20 Urine Mucus Occasional /hpf (None) H 09/28/21 23:20 Urine Opiates Screen Not Detected (NotDetected) 09/28/21 23:20 Ur Oxycodone Screen Not Detected (NotDetected) 09/28/21 23:20 Urine Methadone Screen Not Detected (NotDetected) 09/28/21 23:20 Ur Propoxyphene Screen Not Detected (NotDetected) 09/28/21 23:20 Ur Barbiturates Screen Not Detected (NotDetected) 09/28/21 23:20 U Tricyclic Antidepress Not Detected (NotDetected) 09/28/21 23:20 Ur Phencyclidine Scrn Not Detected (NotDetected) 09/28/21 23:20 Ur Amphetamines Screen Not Detected (NotDetected) 09/28/21 23:20 U Methamphetamines Scrn Not Detected (NotDetected) 09/28/21 23:20 U Benzodiazepines Scrn Not Detected (NotDetected) 09/28/21 23:20 Urine Cocaine Screen Not Detected (NotDetected) 09/28/21 23:20 U Marijuana (THC) Screen Not Detected (NotDetected) 09/28/21 23:20 Coronavirus (PCR) Not Detected (Not Detectd) 09/28/21 22:59 09/29/21 13:28 IDENTIFYING DATA: Patient is a 26-year-old male who currently lives with his his friend and has been living apart from his and 2 children. 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 Patient was admitted voluntarily. Patient was previously admitted to the mental health unit back in April 2021 and mentally discharged to rehab [facility] however did not show for his intake. Patient has a chronic history of alcohol use. Patient was seen today and agreeable to speak to program writer. He states that he is living apart from his family for one and a half weeks now. He states that they could not afford to live together at this time. He states that he has been feeling "like I don't want to live anymore" however did not mention any specific suicidal plans. He states that he's been also feeling very anxious and has been coping significantly by drinking alcohol. He states that he drinks a "copious amounts" lately. He states that he stayed sober for about 4 days after being discharged from the mental health unit in April and then relapse. States he drinks approximately a fifth of whiskey a day with either a 6 or 12 pack of beer with that. He claims that he is having some mild tremors at this time and does feel anxious however does not report any significant seizures in the past or delirium tremens from alcohol withdrawal. He states that his sleep is "on and off". He states that his appetite has been poor. He claims that he has no motivation. He states that he feels hopeless. He claims that he previously "didn't want to quit drinking alcohol". Patient denies any current suicidal or homicidal ideations intent or plan. At this time patient denies any auditory or visual hallucinations. Patient denies any flight of ideas racing thoughts and increased in goal directed behavior. Patient admits to using alcohol as noted above and cigarettes daily. PAST PSYCHIATRIC HISTORY: Patient states that he has a history of depression and anxiety. He also has a chronic history of alcohol abuse. He was previously on Zoloft which she found helpful, he stopped taking the medications about a week a fter discharge. Patient was previously psychiatrically hospitalized in April 2021. Patient denies any psychiatric outpatient follow-up. Patient denies any history of suicide attempts in the past. PMH: Asthma ALLERGIES: as per EMR CHEMICAL DEPENDENCY HISTORY: as per HPI FAMILY PSYCHIATRIC/SUBSTANCE USE HISTORY: States that his mother has bipolar disorder. He states that a lot of people in his family have alcohol abuse problems. SOCIAL HISTORY: Patient was born and raised in [place] at an early age and moved to [place] afterwards with his family. He states that he completed the 11th grade then dropped out and started working. 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 He states that he also went to a juvenile longterm center as a kid. He claims that he currently lives with his in a trailer has 2 kids. MENTAL STATUS EXAM: General Appearance: Patient appears to be thin, shaved head, stated age is alert, directable, and attempts to cooperate. Patient appears to have fair hygiene and grooming. Behavior: Patient is seated without any agitated behavior. Mild tremors mildly anxious. Speech: Patient's speech is fluent and nonpressured. Mood/Affect: Patient reports their mood is "anxious and depressed", affect is congruent and constricted. Suicidality/Homicidality: Patient denies having any homicidal ideation intent or plan. Denies any suicidal ideations intent or plan Perceptions: Patient denies any visual hallucinations and denies any auditory hallucinations Though content/process: There is no evidence of any delusional thought content and thought process is linear and goal-directed. Minimizing his need for treatment. Memory and concentration: AOX3, grossly intact for the purposes of this session. Can spell "WORLD" backwards Judgment and insight: poor STRENGTHS/WEAKNESSES: strength is that patient is resilient. Weakness is that patient has poor judgment and is impulsive INTELLECT: average IMPRESSIONS: Major depressive disorder, without psychotic features Anxiety disorder unspecified Alcohol use disorder, severe, currently in withdrawal Nicotine dependence PLAN: -Patient is admitted under voluntary status to MHU for stabilization of psychiatric symptoms and safety. Patient has signed adult voluntary form and medication consent and is placed in patient's chart. -Medications : Will start patient on Zoloft 50 mg daily for mood/anxiety. Spoke with patient about either acamprosate or naltrexone to help control cravings and he states that he may want to get started on it tomorrow. Will await LFTs tomorrow morning. Valium scheduled 10 mg tid for alcohol withdrawal and will be titrated off. -Ativan and Haldol PRN for agitation/aggression -Started thiamine, MVM for etoh use -CIWA protocol with Ativan PRN for ETOH withdrawal -Patient was informed of the risks, benefits and side effects of the medication and patient verbally consented to taking the medications. Patient signed med consent form and was placed in chart. -Internal Medicine consult to perform medical evaluation and physical. -NRT - nicotine patch -SW on board for discharge planning. Encourage patient to participate in groups to work on coping skills. Will continue to assess and see if patient is willing to go rehab or [facility] treatment.
[2021-09-29] MEDS ORDERED: cefTRIAXone 500 MG VIAL IM STA (13:56)
[2021-09-29] MEDS ORDERED: AZITHROMYCIN 500 MG TAB PO STA (13:59)
[2021-09-29] MEDS: SERTRALINE 50 MG TAB PO SCH (14:35)
[2021-09-29] MEDS: DOXYCYCLINE 100 MG CAP PO SCH (20:25)
[2021-09-30] MEDS: NICOTINE 14MG/24HR PATCH TRANSDERM SCH (08:30)
[2021-09-30] MEDS: FOLIC ACID 1 MG TAB PO SCH (08:30)
[2021-09-30] MEDS: THIAMINE 100 MG TAB PO SCH (08:31)
[2021-09-30] MEDS: MULTIVITAMINS, THERA 1 EACH TAB PO SCH (08:31)
[2021-09-30] MEDS: DOXYCYCLINE 100 MG CAP PO SCH ×2 (08:31→20:31)
[2021-09-30] MEDS: diazePAM 5 MG TAB PO SCH ×3 (08:31→22:03)
[2021-09-30] MEDS: SERTRALINE 50 MG TAB PO SCH (08:31)
[2021-09-30 08:55] LABS: ALT 37 U/L (4-49); AST 73 U/L (17-59); African American GFR (CKD) >90 (>60 ml/min/1.73 sqM); Albumin 4.7 g/dL (3.5-5.0); Alkaline Phosphatase 98 U/L (38-126); Anion Gap 7 mmol/L; Blood Urea Nitrogen 11 mg/dL (9-20); Calcium 10.1 mg/dL (8.4-10.2); Carbon Dioxide 28 mmol/L (22-30); Chloride 105 mmol/L (98-107); Glucose 101 mg/dL (74-99); Non-African American GFR(CKD) >90 (>60 ml/min/1.73 sqM); Potassium 4.2 mmol/L (3.5-5.1); Sodium 140 mmol/L (137-145); Total Bilirubin 1.4 mg/dL (0.2-1.3); Total Protein 8.4 g/dL (6.3-8.2)
[2021-09-30 09:00] LABS: Basophils # (A) 0.1 k/uL (0-0.2); Basophils % (A) 1 %; Eosinophils # (A) 0.7 k/uL (0-0.7); Eosinophils % (A) 8 %; HCT 44.5 % (39.0-53.0); HGB 15.2 gm/dL (13.0-17.5); Lymphocytes # (A) 2.5 k/uL (1.0-4.8); Lymphocytes % (A) 30 %; MCH 33.1 pg (25.0-35.0); MCHC 34.1 g/dL (31.0-37.0); Mean Platelet Volume 8.1; Monocytes # (A) 0.5 k/uL (0-1.0); Monocytes % (A) 7 %; Neutrophils # (A) 4.3 k/uL (1.3-7.7); Neutrophils % (A) 53 %; Platelet Count 248 k/uL (150-450); RBC 4.59 m/uL (4.30-5.90); RDW 12.5 % (11.5-15.5); WBC 8.2 k/uL (3.8-10.6)
--- NOTE | 2021-09-30 10:08 | P.PN ---
Progress Note - Text Progress Note Date: 09/30/21 Interval History: Patient was seen wandering the hallways and was directable and agreeable to mohini yang with radio script writer in the office. Patient appeared to have an improvement in his affect today. He states that he feels the Zoloft has been helping him with his anxiety and mood. He states that his withdrawal symptoms have been gradually improving as well however has mild tremors. His vital signs have been improving and heart rate has been improving as well. He states that he has been going to some groups. He claims that he thought about the naltrexone however states that he does not want to be started on it at this time and wants to wait. He claimed he spoke with his over the phone and states that he will also wait to go to rehab and will give them a call once he is discharged from the hospital. He states that he was able to sleep fairly last night. At this time patient denies any suicidal or homical ideations, intent or plan. Patient denies any auditory, visual hallucinations and denies any paranoia or delusions. Patient denies any side effects from the medications and has been compliant with meds. Mental Status Exam: General Appearance: Patient appears to be thin, shaved head, stated age is alert, directable, and attempts to cooperate. Patient appears to have fair hyg iene and grooming. Behavior: Patient is seated without any agitated behavior. Mild tremors, improving Speech: Patient's speech is fluent and nonpressured. Mood/Affect: Patient reports their mood is "getting there", affect is congruent and constricted. Suicidality/Homicidality: Patient denies having any homicidal ideation intent or plan. Denies any suicidal ideations intent or plan Perceptions: Patient denies any visual hallucinations and denies any auditory hallucinations Though content/process: There is no evidence of any delusional thought content and thought process is linear and goal-directed. Memory and concentration: AOX3, grossly intact for the purposes of this session. Can spell "WORLD" backwards Judgment and insight: Improving mildly IMPRESSIONS: Major depressive disorder, without psychotic features Anxiety disorder unspecified Alcohol use disorder, severe, currently in withdrawal Nicotine dependence Plan: -Patient continues to meet criteria for inpatient psychiatric admission for symptom stabilization and safety. Patient has signed adult voluntary form and medication consent and was placed in patient's chart. -Medications: Continue Zoloft 50 mg daily/anxiety. Decreased Valium to 5 mg 3 times a day for alcohol withdrawal and continue to be tapered down. Patient is currently refusing acamprosate or naltrexone for alcohol cravings. -thiamine, MVM for etoh use -CIWA protocol with Ativan PRN for ETOH withdrawal -When necessary Ativan and Haldol for agitation/aggression. -NRT - nicotine patch -SW on board for discharge planning. Encouraged the patient to participate in milieu. Patient states that he wants to wait until after discharge to go to rehab. Likely discharge tomorrow.
[2021-09-30 13:54] LABS: C. trachomatis,PCR Negative (Neg,Equiv); Chlamydia trachomatis Source Urine; N. gonorrhoeae,PCR Positive (Neg,Equiv); Neisseria Source Urine
[2021-10-01 08:26] VITALS: BP 128/85; PULSE 95; RESP 16; TEMP 97.1
[2021-10-01] MEDS: SERTRALINE 50 MG TAB PO SCH (08:27)
[2021-10-01] MEDS: NICOTINE 14MG/24HR PATCH TRANSDERM SCH (08:27)
[2021-10-01] MEDS: THIAMINE 100 MG TAB PO SCH (08:27)
[2021-10-01] MEDS: DOXYCYCLINE 100 MG CAP PO SCH (08:27)
[2021-10-01] MEDS: MULTIVITAMINS, THERA 1 EACH TAB PO SCH (08:27)
[2021-10-01] MEDS: FOLIC ACID 1 MG TAB PO SCH (08:27)
[2021-10-01] MEDS: diazePAM 5 MG TAB PO SCH (08:28)
--- NOTE | 2021-10-01 10:39 | P.DS ---
Providers Date of admission: 09/29/21 05:13 Expected date of discharge: 10/01/21 Attending physician: Hai Mcwilliams MD Consults: 09/29/21 05:21 Consult Physician Routine Consulting Provider: Sonia Hagan Consult Reason/Comments: For H & P for Medical Follow Up Do you want consulting provider notified?: Yes Primary care physician: Perez Morel - Discharge Diagnosis(es) (1) Major depressive disorder without psychotic features Current Visit: Yes Status: Acute Priority: High (2) Anxiety disorder Current Visit: Yes Status: Acute Priority: Medium (3) Alcohol dependence Current Visit: Yes Status: Acute Priority: High (4) Nicotine dependence Current Visit: Yes Status: Acute Priority: Low Hospital Course: Admission HPI: Admission note was completed by typewriters functional tester "Patient is a 26-year-old male who currently lives with his his friend and has been living apart from his and 2 children. 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 Patient presented to the hospital yesterday complaining of depression and suicidal thoughts. Patient was admitted voluntarily. Patient was previously admitted to the mental health unit back in April 2021 and mentally discharged to [facility] however did not show for his intake. Patient has a chronic history of alcohol use. Patient was seen today and agreeable to speak to typewriters functional tester. He states that he is living apart from his family for one and a half weeks now. He states that they could not afford to live together at this time. He states that he has been feeling "like I don't want to live anymore" however did not mention any specific suicidal plans. He states that he's been also feeling very anxious and has been coping significantly by drinking alcohol. He states that he drinks a "copious amounts" lately. He states that he stayed sober for about 4 days after being discharged from the mental health unit in April and then relapse. States he drinks approximately a fifth of whiskey a day with either a 6 or 12 pack of beer with that. He claims that he is having some mild tremors at this time and does feel anxious however does not report any significant seizures in the past or delirium tremens from alcohol withdrawal. He states that his sleep is "on and off". He states that his appetite has been poor. He claims that he has no motivation. He states that he feels hopeless. He claims that he previously "didn't want to quit drinking alcohol". Patient denies any current suicidal or homicidal ideations intent or plan. At this time patient denies any auditory or visual hallucinations. Patient denies any flight of ideas racing thoughts and increased in goal directed behavior. Patient admits to using alcohol as noted above and cigarettes daily." Hospital course: Upon admission to the unit patient was directable and agreeable to commence treatment and signed adult voluntary form . Patient got along well with other patients on the unit and followed unit protocol. Patient was compliant with the medications and denied any side effects throughout hospital course. Patient was started on Zoloft 50 mg daily for mood/anxiety, patient was also started on a standing dose of Valium which was gradually titrated down for alcohol withdrawal. Patient was also on CIWA protocol with when necessary Ativan. Patient spoke of his stressors and engaged in therapy both group and individual. Patient was also seen by medical team for history and physical exam. Patient was offered acamprosate or naltrexone for alcohol cravings however declined. Throughout the course of the hospitalization patient gradually improved with regards to mood, anxiety, sleep and returned back to their baseline level of functioning. On the day of discharge patient denied any suicidal or homicidal ideations intent or plan denied any auditory or visual hallucinations. Patient endorsed wanting to live for his health and family. The patient denied any access to guns or weapons. Patient denied any paranoia and did not endorse any delusions. Patient does have a significant history of substance abuse and was counseled on abstaining from all substances including alcohol and marijuana. Patient was offered however declined inpatient substance-abuse rehab. He claims that he will take the substance use treatment resources and call rehab once he is back at home. Patient was also counseled on the medications and need for regular compliance and was encouraged to follow-up with their outpatient appointment for mental health and also for primary care. Prior to discharge a family meeting will be arranged by social work case manager to answer any questions and ensure safety upon discharge. Mental status exam: General Appearance: Patient appears to be thin, shaved head, stated age is alert, pleasant, and cooperative. Patient is in no acute distress and has improved hygiene and grooming Behavior: Patient is calmly seated without any agitated behavior. Speech: Patient's speech is fluent and nonpressured. Mood/Affect: Patient reports their mood is "better", affect is congruent and euthymic. Suicidality/Homicidality: Patient denies having any suicidal or homicidal ideation intent or plan. Perceptions: Patient denies any auditory or visual hallucinations. Though content/process: There is no evidence of any delusional thought content and thought process is linear and goal-directed. more future oriented Memory and concentration: AOX3, grossly intact for the purposes of this session. Can spell "WORLD" backwards correctly. Judgment and insight: chronically poor, however has improved with guarded prognosis Impression: Major depressive disorder, without psychotic features Anxiety disorder unspecified Alcohol dependence Nicotine dependence Plan: -Continue with discharge today as patient has improved and stabilized psychiatrically and is not currently an imminent threat to himself and/or others. Patient will remain at chronically elevated risk for harm to self and/or others due to his impulsivity and substance abuse. -Continue medications: Zoloft 50 mg daily for mood/anxiety. BZD were titrated off before d/c. Patient is refusing acamprosate or naltrexone for alcohol cravings. -Patient was counseled on the need for medication compliance and appropriate follow-up at mental health and also primary care for medical issues. Patient verbalized understanding and agreed. -Social work to arrange for and conduct family meeting to ensure safety upon discharge and answer any questions/concerns. Social work also to arrange for patients follow up appointments with [facility] for psychiatric care along with follow up with primary care provider. -Patient counseled on abstaining from recreational drugs and marijuana and alcohol. Was informed/educated on the adverse effects on their physical and mental health. Patient verbally agreed and understood. Patient was offered substance abuse treatment however declined at this time. -Patient was instructed to return to the hospital or seek immediate medical care if their psychiatric or medical symptoms do worsen or reoccur. Allergies Allergy/AdvReac Type Severity Reaction Status Date / Time latex Allergy Rash/Hives Verified 09/28/21 22:41 Penicillins Allergy Rash/Hives Verified 09/28/21 22:41 Laboratory Results WBC 8.2 k/uL (3.8-10.6) 09/30/21 07:55 RBC 4.59 m/uL (4.30-5.90) 09/30/21 07:55 Hgb 15.2 gm/dL (13.0-17.5) 09/30/21 07:55 Hct 44.5 % (39.0-53.0) 09/30/21 07:55 MCV 97.0 fL (80.0-100.0) 09/30/21 07:55 MCH 33.1 pg (25.0-35.0) 09/30/21 07:55 MCHC 34.1 g/dL (31.0-37.0) 09/30/21 07:55 RDW 12.5 % (11.5-15.5) 09/30/21 07:55 Plt Count 248 k/uL (150-450) 09/30/21 07:55 MPV 8.1 09/30/21 07:55 Neutrophils % 53 % 09/30/21 07:55 Lymphocytes % 30 % 09/30/21 07:55 Monocytes % 7 % 09/30/21 07:55 Eosinophils % 8 % 09/30/21 07:55 Basophils % 1 % 09/30/21 07:55 Neutrophils # 4.3 k/uL (1.3-7.7) 09/30/21 07:55 Lymphocytes # 2.5 k/uL (1.0-4.8) 09/30/21 07:55 Monocytes # 0.5 k/uL (0-1.0) 09/30/21 07:55 Eosinophils # 0.7 k/uL (0-0.7) 09/30/21 07:55 Basophils # 0.1 k/uL (0-0.2) 09/30/21 07:55 Sodium 140 mmol/L (137-145) 09/30/21 07:55 Potassium 4.2 mmol/L (3.5-5.1) 09/30/21 07:55 Chloride 105 mmol/L (98-107) 09/30/21 07:55 Carbon Dioxide 28 mmol/L (22-30) 09/30/21 07:55 Anion Gap 7 mmol/L 09/30/21 07:55 BUN 11 mg/dL (9-20) 09/30/21 07:55 Creatinine 0.97 mg/dL (0.66-1.25) 09/30/21 07:55 Est GFR (CKD-EPI)AfAm >90 (>60 ml/min/1.73 sqM) 09/30/21 07:55 Est GFR (CKD-EPI)NonAf >90 (>60 ml/min/1.73 sqM) 09/30/21 07:55 Glucose 101 mg/dL (74-99) H 09/30/21 07:[address] Glu mg/dL 109 09/30/21 07:55 Hemoglobin A1c 5.4 % (0.0-6.0) 09/30/21 07:55 Calcium 10.1 mg/dL (8.4-10.2) 09/30/21 07:55 Total Bilirubin 1.4 mg/dL (0.2-1.3) H 09/30/21 07:55 AST 73 U/L (17-59) H 09/30/21 07:55 ALT 37 U/L (4-49) 09/30/21 07:55 Alkaline Phosphatase 98 U/L (38-126) 09/30/21 07:55 Total Protein 8.4 g/dL (6.3-8.2) H 09/30/21 07:55 Albumin 4.7 g/dL (3.5-5.0) 09/30/21 07:55 TSH 1.690 mIU/L (0.465-4.680) 09/30/21 07:55 Urine Color Light Yellow 09/28/21 23:20 Urine Appearance Clear (Clear) 09/28/21 23:20 Urine pH 6.5 (5.0-8.0) 09/28/21 23:20 Ur Specific [place] 1.007 (1.001-1.035) 09/28/21 23:20 Urine Protein Negative (Negative) 09/28/21 23:20 Urine Glucose (UA) Negative (Negative) 09/28/21 23:20 Urine Ketones Negative (Negative) 09/28/21 23:20 Urine Blood Negative (Negative) 09/28/21 23:20 Urine Nitrite Negative (Negative) 09/28/21 23:20 Urine Bilirubin Negative (Negative) 09/28/21 23:20 Urine Urobilinogen <2.0 mg/dL (<2.0) 09/28/21 23:20 Ur Leukocyte Esterase Large (Negative) H 09/28/21 23:20 Urine RBC 1 /hpf (0-5) 09/28/21 23:20 Urine WBC 48 /hpf (0-5) H 09/28/21 23:20 Urine WBC Clumps Occasional /hpf (None) H 09/28/21 23:20 Ur Squamous Epith Cells <1 /hpf (0-4) 09/28/21 23:20 Urine Bacteria Rare /hpf (None) H 09/28/21 23:20 Hyaline Casts 1 /lpf (0-2) 09/28/21 23:20 Urine Mucus Occasional /hpf (None) H 09/28/21 23:20 Urine Opiates Screen Not Detected (NotDetected) 09/28/21 23:20 Ur Oxycodone Screen Not Detected (NotDetected) 09/28/21 23:20 Urine Methadone Screen Not Detected (NotDetected) 09/28/21 23:20 Ur Propoxyphene Screen Not Detected (NotDetected) 09/28/21 23:20 Ur Barbiturates Screen Not Detected (NotDetected) 09/28/21 23:20 U Tricyclic Antidepress Not Detected (NotDetected) 09/28/21 23:20 Ur Phencyclidine Scrn Not Detected (NotDetected) 09/28/21 23:20 Ur Amphetamines Screen Not Detected (NotDetected) 09/28/21 23:20 U Methamphetamines Scrn Not Detected (NotDetected) 09/28/21 23:20 U Benzodiazepines Scrn Not Detected (NotDetected) 09/28/21 23:20 Urine Cocaine Screen Not Detected (NotDetected) 09/28/21 23:20 U Marijuana (THC) Screen Not Detected (NotDetected) 09/28/21 23:20 Chlamydia Source Urine 09/29/21 19:50 Chlamydia DNA (PCR) Negative (Neg,Equiv) 09/29/21 19:50 Coronavirus (PCR) Not Detected (Not Detectd) 09/28/21 22:59 N. gonorrhoeae Source Urine 09/29/21 19:50 N.gonorrhoeae DNA Probe Positive (Neg,Equiv) A 09/29/21 19:50 Vital Signs Temp 97.1 F L 10/01/21 08:25 Pulse 95 10/01/21 08:25 Resp 16 10/01/21 08:25 BP 128/85 10/01/21 08:25 Pulse Ox 100 10/01/21 08:25 Patient Condition at Discharge: Stable Plan - Discharge Summary New Discharge Prescriptions: New Folic Acid 1 mg PO DAILY 30 Days tab Multivitamins, Thera [Multivitamin (formulary)] 1 each PO DAILY 30 Days tab Albuterol Inhaler [Ventolin Hfa Inhaler] 2 puff INHALATION RT-QID PRN #1 gm PRN Reason: Shortness Of Breath Sertraline [Zoloft] 50 mg PO DAILY 30 Days tab Nicotine 14Mg/24Hr Patch [Habitrol] 1 patch TRANSDERM DAILY 14 Days patch Doxycycline [Vibramycin] 100 mg PO BID 7 Days cap Thiamine [Vitamin B-1] 100 mg PO DAILY 30 Days tab Discharge Medication List Albuterol Inhaler [Ventolin Hfa Inhaler] 2 puff INHALATION RT-QID PRN #1 gm 10/01/21 [Rx] Doxycycline [Vibramycin] 100 mg PO BID 7 Days cap 10/01/21 [Rx] Folic Acid 1 mg PO DAILY 30 Days tab 10/01/21 [Rx] Multivitamins, Thera [Multivitamin (formulary)] 1 each PO DAILY 30 Days tab 10/01/21 [Rx] Nicotine 14Mg/24Hr Patch [Habitrol] 1 patch TRANSDERM DAILY 14 Days patch 10/01/21 [Rx] Sertraline [Zoloft] 50 mg PO DAILY 30 Days tab 10/01/21 [Rx] Thiamine [Vitamin B-1] 100 mg PO DAILY 30 Days tab 10/01/21 [Rx] Follow up Appointment(s)/Referral(s): Perez Morel DO [Primary Care Provider] - 1-2 days Activity/Diet/Wound Care/Special Instructions: Activity and diet as tolerated. Avoid the use of street drugs and alcohol. Take all medications as prescribed. When you are in need of refills on your medications please contact your medical provider and/or outpatient psychiatrist to have this done. Please go to scheduled outpatient appointment for aftercare treatment. If symptoms return or become worse, call the crisis line at and/or go to the nearest emergency room for evaluation Discharge Disposition: HOME SELF-CARE
== END 2021-10-01 11:51 | disposition home or self-care (01) | DRG 881 ==
LOC: EC 22:00 → 3MHU 09-29 05:13
PROVIDERS: ADMIT Psychiatry & Neurology Psychiatry; ATTEND Psychiatry & Neurology Psychiatry
DX: F32.9 Major depressive disorder, single episode, unspecified (principal); F10.239 Alcohol dependence with withdrawal, unspecified; R45.851 Suicidal ideations; A54.9 Gonococcal infection, unspecified; Z71.41 Alcohol abuse counseling and surveillance of alcoholic; F10.229 Alcohol dependence with intoxication, unspecified; Z71.6 Tobacco abuse counseling; F17.210 Nicotine dependence, cigarettes, uncomplicated; F41.9 Anxiety disorder, unspecified; T43.226A Underdosing of selective serotonin reuptake inhibitors, initial encounter; J45.909 Unspecified asthma, uncomplicated; Z63.0 Problems in relationship with spouse or partner; Z20.822 Contact with and (suspected) exposure to COVID-19; Z86.16 Personal history of COVID-19; Z53.29 Procedure and treatment not carried out because of patient's decision for other reasons; Z91.128 Patient's intentional underdosing of medication regimen for other reason; Z79.899 Other long term (current) drug therapy; Z81.8 Family history of other mental and behavioral disorders; Z88.0 Allergy status to penicillin; Z91.040 Latex allergy status
CPT/HCPCS: 80053; 80306; 81001; 82075; 83036; 84443; 85025; 87491; 87591; 87635; 99285

== ENCOUNTER 2022-06-24 00:08 | Emergency (ER) | payer OTHER ==
[2022-06-24 00:16] VITALS: BP 129/86; PULSE 103; RESP 16; TEMP 98.4
[2022-06-24 00:27] LABS: Appearance,Urine Clear (Clear); Bilirubin,Urine Negative (Negative); Blood,Urine Negative (Negative); Color,Urine Colorless; Glucose,Urine (UA) Negative (Negative); Ketones,Urine Negative (Negative); Leukocyte Esterase,Urine Negative (Negative); Nitrite,Urine Negative (Negative); Protein,Urine Negative (Negative); Specific Gravity,Urine 1.001 (1.001-1.035); Urobilinogen,Urine <2.0 mg/dL (<2.0)
--- NOTE | 2022-06-24 00:46 | ED ---
Male Urogenital HPI - General Chief complaint: Urogenital Stated complaint: BLOOD IN URINE Time Seen by Provider: 06/24/22 00:27 Source: patient, RN notes reviewed, old records reviewed Mode of arrival: ambulatory Limitations: no limitations - History of Present Illness Initial comments: 27-year-old male presents to the emergency room with 2 days of hematuria. States a couple days ago he had a sharp pain in his penis. All symptoms have resolved now. States his wanted him to come in for evaluation. MD Complaint: other (Hematuria) -: days(s) (2) Severity scale (1-10): 0 Consistency: now resolved Reports: denies other symptoms - Related Data Previous Rx's Medication Instructions Recorded Albuterol Inhaler [Ventolin Hfa 2 puff INHALATION RT-QID PRN #1 gm 10/01/21 Inhaler] Doxycycline [Vibramycin] 100 mg PO BID 7 Days cap 10/01/21 Folic Acid 1 mg PO DAILY 30 Days tab 10/01/21 Multivitamins, Thera [Multivitamin 1 each PO DAILY 30 Days tab 10/01/21 (formulary)] Nicotine 14Mg/24Hr Patch [Habitrol] 1 patch TRANSDERM DAILY 14 Days 10/01/21 patch Sertraline [Zoloft] 50 mg PO DAILY 30 Days tab 10/01/21 Thiamine [Vitamin B-1] 100 mg PO DAILY 30 Days tab 10/01/21 Allergies Allergy/AdvReac Type Severity Reaction Status Date / Time latex Allergy Rash/Hives Verified 06/24/22 00:12 Penicillins Allergy Rash/Hives Verified 06/24/22 00:12 Review of Systems ROS Statement: Those systems with pertinent positive or pertinent negative responses have been documented in the HPI. ROS Other: All systems not noted in ROS Statement are negative. Past Medical History Past Medical History: Asthma Additional Past Medical History / Comment(s): covid 07/01/21 History of Any Multi-Drug Resistant Organisms: None Reported Additional Past Surgical History / Comment(s): sinus surgery Past Psychological History: Anxiety Smoking Status: Current every day smoker Past Alcohol Use History: Abuse, Daily, Heavy Past Drug Use History: None Reported General Exam Limitations: no limitations General appearance: alert, in no apparent distress Eye exam: Absent: scleral icterus, conjunctival injection, periorbital swelling ENT exam: Present: mucous membranes moist Neck exam: Present: full ROM. Absent: meningismus Respiratory exam: Present: normal lung sounds bilaterally. Absent: respiratory distress, wheezes, rales, rhonchi, stridor, chest wall tenderness, accessory muscle use Cardiovascular Exam: Present: regular rate GI/Abdominal exam: Present: soft. Absent: distended, tenderness Back exam: Present: normal inspection, full ROM. Absent: tenderness, CVA tenderness (R), CVA tenderness (L), rash noted Neurological exam: Present: alert, oriented X3, normal gait Expanded Patient oriented to: Present: person, place, time Speech: Present: fluid speech Eye Response: (4) open spontaneously Motor Response: (6) obeys commands Verbal Response: (5) oriented Sanna Total: 15 Psychiatric exam: Present: normal affect, normal mood Skin exam: Present: warm, dry. Absent: cyanosis, diaphoretic, petechiae, pallor Course Vital Signs 06/24/22 00:13 Temperature 98.4 F Pulse Rate 103 H Respiratory 16 Rate Blood Pressure 129/86 O2 Sat by Pulse 98 Oximetry Medical Decision Making - Medical Decision Making Patient presents with complaints of 2 days of hematuria. 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 States he is a daily drinker and drinks a 1/5 of whiskey a day. His urinalysis is clear. No evidence of blood. Denies any flank pain. Denies any fevers, no nausea or vomiting or diarrhea. No other abnormal bleeding. Patient states he did have a sharp pain in his penis with urination the other day. This may have been the passing of a kidney stone which would also account for the hematuria. He denies any pain or discomfort at this time. In the absence of any symptoms at this time, patient will be discharged home. Strict return parameters were discussed including inability to urinate, persistent nausea vomiting or fevers. He is agreeable to this plan of care. Case discussed with Dr. Oneill. - Lab Data Lab Results 06/24/22 Range/Units 00:20 Urine Color Colorless Urine Appearance Clear (Clear) Urine pH 6.0 (5.0-8.0) Ur Specific [place] 1.001 (1.001-1.035) Urine Protein Negative (Negative) Urine Glucose (UA) Negative (Negative) Urine Ketones Negative (Negative) Urine Blood Negative (Negative) Urine Nitrite Negative (Negative) Urine Bilirubin Negative (Negative) Urine Urobilinogen <2.0 (<2.0) mg/dL Ur Leukocyte Esterase Negative (Negative) Disposition Clinical Impression: Hematuria Disposition: HOME SELF-CARE Condition: Good Instructions (If sedation given, give patient instructions): Hematuria (ED) Additional Instructions: Increase your fluid intake. Take Motrin and/or Tylenol as needed for any discomfort. Return to the emergency room with any new or concerning symptoms including fever, persistent nausea vomiting, pain or inability to urinate. Follow-up with your primary care doctor this week. Is patient prescribed a controlled substance at d/c from ED?: No Referrals: None,Stated [Primary Care Provider] - 1-2 days Time of Disposition: 00:46
== END 2022-06-24 01:18 | disposition home or self-care (01) ==
LOC: EC 00:08
DX: R31.9 Hematuria, unspecified (principal); J45.909 Unspecified asthma, uncomplicated; F41.9 Anxiety disorder, unspecified; F17.200 Nicotine dependence, unspecified, uncomplicated; Z79.51 Long term (current) use of inhaled steroids; Z79.52 Long term (current) use of systemic steroids; Z91.040 Latex allergy status; Z88.0 Allergy status to penicillin
CPT/HCPCS: 81003; 99283

== ENCOUNTER 2022-06-24 13:07 | Observation (INO) | payer OTHER ==
--- NOTE | 2022-06-24 14:08 | ED ---
Psych HPI - General Chief Complaint: Psychiatric Symptoms Stated Complaint: mental health Time Seen by Provider: 06/24/22 13:47 Source: patient, RN notes reviewed Mode of arrival: ambulatory - History of Present Illness Initial Comments: Patient is a 27-year-old male presenting to the emergency room for psychiatric evaluation. He reports that he is having suicidal thoughts with a plan of hanging himself. He has a history of depression with previous suicidal thoughts and previous psychiatric admissions for treatment however he does not take his antidepressant medications as prescribed. He has a history of alcohol abuse and drinks approximately a fifth to a fifth and a half a day of alcohol. He denies any homicidal thoughts, hallucinations or delusions. In addition to his depression and EtOH history he has a past medical history significant for asthma and anxiety. - Related Data Previous Rx's Medication Instructions Recorded Albuterol Inhaler [Ventolin Hfa 2 puff INHALATION RT-QID PRN #1 gm 10/01/21 Inhaler] Doxycycline [Vibramycin] 100 mg PO BID 7 Days cap 10/01/21 Folic Acid 1 mg PO DAILY 30 Days tab 10/01/21 Multivitamins, Thera [Multivitamin 1 each PO DAILY 30 Days tab 10/01/21 (formulary)] Nicotine 14Mg/24Hr Patch [Habitrol] 1 patch TRANSDERM DAILY 14 Days 10/01/21 patch Sertraline [Zoloft] 50 mg PO DAILY 30 Days tab 10/01/21 Thiamine [Vitamin B-1] 100 mg PO DAILY 30 Days tab 10/01/21 Allergies Allergy/AdvReac Type Severity Reaction Status Date / Time latex Allergy Rash/Hives Verified 06/24/22 13:12 Penicillins Allergy Rash/Hives Verified 06/24/22 13:12 Review of Systems ROS Statement: Those systems with pertinent positive or pertinent negative responses have been documented in the HPI. ROS Other: All systems not noted in ROS Statement are negative. Past Medical History Past Medical History: Asthma Additional Past Medical History / Comment(s): covid 07/01/21 History of Any Multi-Drug Resistant Organisms: None Reported Past Surgical History: No Surgical Hx Reported Additional Past Surgical History / Comment(s): sinus surgery Past Psychological History: Anxiety, Depression Smoking Status: Current every day smoker Past Alcohol Use History: Abuse, Daily, Heavy Past Drug Use History: None Reported General Exam General appearance: alert, in no apparent distress Head exam: Present: atraumatic, normocephalic, normal inspection Eye exam: Present: normal appearance, PERRL, EOMI. Absent: scleral icterus, conjunctival injection, periorbital swelling ENT exam: Present: normal exam Neck exam: Present: normal inspection, full ROM Respiratory exam: Present: normal lung sounds bilaterally. Absent: respiratory distress, wheezes, rales, rhonchi, stridor Cardiovascular Exam: Present: regular rate, normal rhythm, normal heart sounds. Absent: systolic murmur, diastolic murmur, rubs, gallop, clicks GI/Abdominal exam: Present: soft, normal bowel sounds. Absent: distended, tenderness, guarding, rebound, rigid Rectal exam: Present: deferred Extremities exam: Present: normal inspection. Absent: pedal edema, joint swelling Back exam: Present: normal inspection Neurological exam: Present: alert, oriented X3, CN II-XII intact Psychiatric exam: Present: flat affect, suicidal ideation. Absent: homicidal ideation Skin exam: Present: warm, dry, intact, normal color. Absent: rash Course Vital Signs 06/24/22 13:09 Temperature 97.6 F Pulse Rate 89 Respiratory 18 Rate Blood Pressure 131/93 O2 Sat by Pulse 98 Oximetry Medical Decision Making - Medical Decision Making 27-year-old male presenting to the emergency room with suicidal thoughts and plan for committing suicide by hanging. Psychiatric precautions taken with placement in a psychiatric room with the garage door down and belongings removed. Family currently at the bedside. Patient medically clear for EPS evaluation however she is currently intoxicated with a breath alcohol level of 0.209. Will obtain serum alcohol level is serum alcohol level less than 250 will plan for evaluation by EPS and 7 hours if greater than 250 will plan for observation stay for acute intoxication and EPS evaluation when sober. Serum alcohol level 269. Dr. Lira with [facility] notified regarding patient's status and need for observation stay until cleared for psychiatric evaluation due to suicidal thought with suicidal plan; he is accepting of admission. Case discussed with Dr. [place]. - Lab Data Lab Results 06/24/22 06/24/22 06/24/22 Range/Units 14:29 15:15 15:15 Urine Opiates Screen Not Detected (NotDetected) Ur Oxycodone Screen Not Detected (NotDetected) Urine Methadone Screen Not Detected (NotDetected) Ur Propoxyphene Screen Not Detected (NotDetected) Ur Barbiturates Screen Not Detected (NotDetected) U Tricyclic Antidepress Not Detected (NotDetected) Ur Phencyclidine Scrn Not Detected (NotDetected) Ur Amphetamines Screen Not Detected (NotDetected) U Methamphetamines Scrn Not Detected (NotDetected) U Benzodiazepines Scrn Not Detected (NotDetected) Urine Cocaine Screen Not Detected (NotDetected) U Marijuana (THC) Screen Not Detected (NotDetected) Serum Alcohol 269 H* mg/dL Coronavirus (PCR) Not Detected (Not Detectd) Disposition Clinical Impression: Suicidal ideation, Alcohol intoxication Disposition: ADMITTED IP TO THIS HOSP Condition: Stable Is patient prescribed a controlled substance at d/c from ED?: No Referrals: None,Stated [Primary Care Provider] - 1-2 days Time of Disposition: 16:25
[2022-06-24 14:50] LABS: Amphetamine Screen,Urine Not Detected (NotDetected); Barbiturate Screen,Urine Not Detected (NotDetected); Benzodiazepines Screen,Urine Not Detected (NotDetected); Cocaine Screen,Urine Not Detected (NotDetected); Methadone Screen, Urine Not Detected (NotDetected); Opiate Screen,Urine Not Detected (NotDetected); Oxycodone Screen, Urine Not Detected (NotDetected); Phencyclidine Screen,Urine Not Detected (NotDetected); Tricyclic Antidepressant,Urine Not Detected (NotDetected); Urn Cannabinoid Scrn Not Detected (NotDetected)
[2022-06-24] MEDS ORDERED: NALOXONE 0.4 MG/ML 1 ML VIAL IV PRN ×2 (16:19→17:52)
--- NOTE | 2022-06-24 17:56 | P.HPIM ---
History of Present Illness H&P Date: 06/24/22 Chief Complaint: ETOH abuse 27-year-old male with history of depression/anxiety and EtOH abuse, asthma presenting to the emergency room because of having suicidal thoughts with a plan of hanging himself. He has a history of depression with previous suicidal thoughts and previous psychiatric admissions for treatment however he does not take his antidepressant medications as prescribed. He has a history of alcohol abuse and drinks approximately a fifth to a fifth and a half a day of whiskey every day, has been drinking several years. He denied recent illness. No cough, pain, shortness of breath, fevers or chills. He denies any homicidal thoughts, hallucinations or delusions. His alcohol level in the emergency department was 269, was subsequently admitted for further evaluation and management. Review of Systems Complete review of system performed, pertinent positives per HPI, otherwise negative Past Medical History Past Medical History: Asthma Additional Past Medical History / Comment(s): covid 07/01/21 History of Any Multi-Drug Resistant Organisms: None Reported Past Surgical History: No Surgical Hx Reported Additional Past Surgical History / Comment(s): sinus surgery Past Psychological History: Anxiety, Depression Smoking Status: Current every day smoker Past Alcohol Use History: Abuse, Daily, Heavy Past Drug Use History: None Reported Medications and Allergies Home Medications Medication Instructions Recorded Confirmed Type No Known Home Medications 06/24/22 06/24/22 History Allergies Allergy/AdvReac Type Severity Reaction Status Date / Time latex Allergy Rash/Hives Verified 06/24/22 16:44 Penicillins Allergy Rash/Hives Verified 06/24/22 16:44 Physical Exam Vitals: Vital Signs Temp Pulse Resp BP Pulse Ox 06/24/22 13:09 97.6 F 89 18 131/93 98 Intake and Output 06/24/22 06/24/22 06/24/22 06:59 14:59 22:59 Other: Weight 56.699 kg Constitutional: No acute distress, conversant, pleasant Eyes:Anicteric sclerae, moist conjunctiva, no lid-lag, PERRLA, ENMT: Oropharynx clear, no erythema, exudates Neck: Supple, FROM, no masses, or JVD, No carotid bruits, No thyromegaly Lungs: Clear to auscultation, Clear to percussion, Normal respiratory effort, no accessory muscle use Cardiovascular: Heart regular in rate and rhythm, No murmurs, gallops, or rubs, No peripheral edema Abdominal: Soft, Nontender, no guarding, rebound or rigidity, Normoactive bowel sounds, No hepatomegaly, No splenomegaly, No palpable mass Skin: Normal temperature, tone, texture, turgor, no induration, No subcutaneous nodules, No rash, lesions, No ulcers Extremities: No digital cyanosis, No clubbing, Pedal pulses intact and symmetrical, Radial pulses intact and symmetrical, No calf tenderness Psychiatric: Alert and oriented to person, place and time, appropriate affect, intact judgement Neuro: Muscles Strength 5/5 in all 4 extremities, Sensation to light touch grossly present throughout, Cranial nerves II-XII grossly intact, no focal sensory deficits Results Labs: Abnormal Lab Results - Last 24 Hours (Table) 06/24/22 Range/Units 15:15 Serum Alcohol 269 H* mg/dL Assessment and Plan Plan: EtOH abuse At risk for alcohol withdrawal Start ETOH withdrawal protocol Ativan as needed IV fluids Check CBC, CMP, Mg Suicidal thoughts Depression Consult psychiatry Admit to observation
[2022-06-24] MEDS ORDERED: THIAMINE 100 MG/ML 2 ML VIAL IM STA (17:57)
[2022-06-24] MEDS ORDERED: chlordiazePOXIDE 25 MG CAP PO PRN (17:57)
[2022-06-24 18:25] LABS: Basophils # (A) 0.1 k/uL (0-0.2); Basophils % (A) 1 %; Eosinophils # (A) 0.4 k/uL (0-0.7); Eosinophils % (A) 8 %; HCT 42.1 % (39.0-53.0); HGB 14.8 gm/dL (13.0-17.5); Lymphocytes # (A) 1.5 k/uL (1.0-4.8); Lymphocytes % (A) 32 %; MCH 34.7 pg (25.0-35.0); MCHC 35.2 g/dL (31.0-37.0); MCV 98.7 fL (80.0-100.0); Mean Platelet Volume 8.6; Monocytes # (A) 0.3 k/uL (0-1.0); Monocytes % (A) 6 %; Neutrophils # (A) 2.3 k/uL (1.3-7.7); Neutrophils % (A) 50 %; Platelet Count 198 k/uL (150-450); RBC 4.26 m/uL (4.30-5.90); RDW 11.9 % (11.5-15.5); WBC 4.5 k/uL (3.8-10.6)
[2022-06-24 19:02] LABS: ALT 78 U/L (4-49); AST 201 U/L (17-59); African American GFR (CKD) >90 (>60 ml/min/1.73 sqM); Albumin 4.5 g/dL (3.5-5.0); Albumin/Globulin Ratio 1.7; Alkaline Phosphatase 129 U/L (38-126); Anion Gap 16 mmol/L; Blood Urea Nitrogen 7 mg/dL (9-20); Calcium 8.8 mg/dL (8.4-10.2); Carbon Dioxide 21 mmol/L (22-30); Chloride 105 mmol/L (98-107); Globulin 2.7 g/dL; Glucose 99 mg/dL (74-99); Non-African American GFR(CKD) >90 (>60 ml/min/1.73 sqM); Sodium 142 mmol/L (137-145); Total Bilirubin 0.5 mg/dL (0.2-1.3); Total Protein 7.2 g/dL (6.3-8.2)
[2022-06-24] MEDS: SODIUM CHLORIDE 0.9% 1,000 ML IV SCH (22:31)
[2022-06-25] MEDS ORDERED: ALBUTEROL HFA INHALER INHALATION STA (00:01)
[2022-06-25] MEDS: MULTIVITAMINS, THERA 1 EACH TAB PO SCH ×2 (00:12→09:07)
[2022-06-25] MEDS: SODIUM CHLORIDE 0.9% 1,000 ML IV SCH ×3 (02:14→15:10)
[2022-06-25] MEDS ORDERED: LORazepam 0.5 MG TAB PO PRN (07:51)
[2022-06-25] MEDS ORDERED: THIAMINE 100 MG/ML 2 ML VIAL IM STA (07:51)
[2022-06-25] MEDS ORDERED: LORazepam 1 MG TAB PO PRN ×3 (07:51)
[2022-06-25] MEDS ORDERED: THIAMINE 100 MG TAB PO SCH (09:00)
[2022-06-25] MEDS ORDERED: FOLIC ACID 1 MG TAB PO SCH (09:00)
[2022-06-25 09:10] LABS: Basophils # (A) 0.04 X 10*3/uL (0.00-0.10); Basophils % (A) 0.6 %; Eosinophils # (A) 0.44 X 10*3/uL (0.04-0.35); Eosinophils % (A) 6.7 %; HCT 38.5 % (39.6-50.0); HGB 13.4 g/dL (13.0-17.0); Immature Grans, Automated 0.2 %; Lymphocytes # (A) 1.43 X 10*3/uL (0.90-5.00); Lymphocytes % (A) 21.7 %; MCH 33.4 pg (27.0-32.0); MCHC 34.8 g/dL (32.0-37.0); Mean Platelet Volume 11.2 fL (9.5-12.2); Monocytes # (A) 0.54 X 10*3/uL (0.20-1.00); Monocytes % (A) 8.2 %; NRBC Per 100 WBC 0 /100 WBCS (0.0-0.0); Neutrophils # (A) 4.13 X 10*3/uL (1.80-7.70); Neutrophils % (A) 62.6 %; Platelet Count 169 X 10*3/uL (140-440); RBC 4.01 X 10*6/uL (4.40-5.60); RDW 11.9 % (11.5-14.5); WBC 6.59 X 10*3/uL (4.50-10.00)
[2022-06-25 09:18] LABS: African American GFR (CKD) 133.2 (60.0-200.0); Albumin 4.2 g/dL (3.8-4.9); Albumin/Globulin Ratio 1.72 (1.60-3.17); Anion Gap 12.6 mmol/L (10.00-18.00); BUN/Creat Ratio 10.23 Ratio (12.00-20.00); Blood Urea Nitrogen 9.3 mg/dL (9.0-27.0); Calcium 9.1 mg/dL (8.7-10.3); Carbon Dioxide 23.9 mmol/L (20.0-27.5); Globulin 2.4 g/dL (1.6-3.3); Magnesium 1.7 mg/dL (1.5-2.4); Non-African American GFR(CKD) 114.9 (60.0-200.0); Potassium 4.2 mmol/L (3.5-5.5); Total Bilirubin 1.1 mg/dL (0.30-1.20); Total Protein 6.6 g/dL (6.2-8.2)
[2022-06-25] MEDS ORDERED: traZODone HCL 50 MG TAB PO PRN (14:00)
--- NOTE | 2022-06-25 14:00 | P.CN ---
Psychiatric Consult - . Consult date: 06/25/22 Consult:: 06/25/22 12:59 IDENTIFYING DATA: Patient is a 27-year-old male who currently lives with his girlfriend, in an apartment, 2 children. 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 Patient's urine drug screen was negative. His blood alcohol level was 269. Patient's AST and ALT levels were significantly elevated. Patient had mentioned in the ER that he is drinking more than a fifth of whiskey per day. Patient was admitted to the medical floors for alcohol withdrawal/intoxication. Patient has a history of 2 previous psychiatric admissions for depression and anxiety and alcohol use disorder on the mental health unit. She was seen lying in bed and agreeable to speak to verse writer. He claims that he has been feeling depressed and anxious lately. He states that he was also drinking however was fairly vague and evasive about his drinking. He claims that he has been drinking more lately and explained that it has been at least a fifth of whiskey per day. He states that he does have some withdrawal symptoms at this time including mild tremors and also anxiety and heart racing. He claims that he went through a divorce and is now living with a girlfriend. He states that he stopped taking his Zoloft back in October after he ran out of the prescription and states that "I didn't need them anymore". He denies having any access to guns or weapons. Patient has poor insight and judgment and was fairly superficial with verse writer and minimized his depression and alcohol use. He states that his appetite has been poor and claims that his sleep has been poor. He claims that he has little motivation. Patient denies any current suicidal or homicidal ideations intent or plan. At this time patient denies any auditory or visual hallucinations. Patient denies any flight of ideas racing thoughts and increased in goal directed behavior. Patient admits to using alcohol as noted above and cigarettes daily. PAST PSYCHIATRIC HISTORY: Patient states that he has a history of depression and anxiety and etoh abuse. He also has a chronic history of alcohol abuse. He was previously on Zoloft 50 mg daily for mood/anxiety however stopped taking it several months ago. Patient was previously psychiatrically hospitalized in september 2021. Patient denies any psychiatric outpatient follow-up. Patient denies any history of suicide attempts in the past. PMH: Asthma ALLERGIES: as per EMR CHEMICAL DEPENDENCY HISTORY: as per HPI FAMILY PSYCHIATRIC/SUBSTANCE USE HISTORY: States that his mother has bipolar disorder. He states that a lot of people in his family have alcohol abuse problems. SOCIAL HISTORY: Patient was born and raised in [place] at an early age and moved to [place] afterwards with his family. He states that he completed the 11th grade then dropped out and started working. 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 He states that he also went to a juvenile care home center as a kid. He claims that he currently lives with his girlfriend in an apartment, has 2 kids. MENTAL STATUS EXAM: General Appearance: Patient appears to be thin, shaved head, stated age is alert, directable, and attempts to cooperate. superficial. Patient appears to have fair hygiene and grooming. Behavior: Patient is seated without any agitated behavior. tremors, mildly anxious. Speech: Patient's speech is fluent and nonpressured. concrete Mood/Affect: Patient reports their mood is "anxious and depressed", affect is congruent and constricted. Suicidality/Homicidality: Patient denies having any homicidal ideation intent or plan. Denies any suicidal ideations intent or plan Perceptions: Patient denies any visual hallucinations and denies any auditory hallucinations Though content/process: There is no evidence of any delusional thought content and thought process is linear and goal-directed. Minimizing his need for treatment. superficial Memory and concentration: AOX3, grossly intact for the purposes of this session. Can spell "WORLD" backwards Judgment and insight: poor IMPRESSIONS: Major depressive disorder, without psychotic features Anxiety disorder unspecified Alcohol use disorder, severe, currently in withdrawal Nicotine dependence PLAN: -At this time patient DOES meet criteria for inpatient psychiatric admission. -Would recommend the following medication changes/additions: added valium 5 mg tid for etoh w/d and plan to decrease. once patient is admitted onto the unit then will need to start patient on an antidepressant such as effexor, prozac, lexapro, celexa etc. trazodone 50 mg qhs prn for sleep. -CIWA protocol with PRN Ativan for alcohol withdrawal. Continue to monitor vital signs. -Continue 1:1 sitter for safety until patient is safely transferred onto the MHU -Cannot leave AMA at this time. Patient will need a petition and certification if attempting to leave AMA. -Contract Preparer spoke with patient about substance abuse and the harmful effects on medical and mental health, patient verbally understood and agreed. -When medically stable, patient is eligible for transfer to a psych bed when available. -Communicated plan to patient's nurse and to primary hospitalist. -Psychiatry will sign off at this time -Please contact with any questions. 06/25/22 13:52
--- NOTE | 2022-06-25 14:35 | P.DS ---
Providers Date of admission: 06/24/22 16:19 Expected date of discharge: 06/25/22 Attending physician: Charles Lira MD Consults: 06/24/22 18:00 Consult Physician Routine Consulting Provider: Glenn Sullivan Consult Reason/Comments: suicidal Do you want consulting provider notified?: Already Contacted Primary care physician: Stated None Hospital Course: 27-year-old male with history of depression/anxiety and EtOH abuse, asthma presenting to the emergency room because of having suicidal thoughts with a plan of hanging himself. He has a history of depression with previous suicidal thoughts and previous psychiatric admissions for treatment however he does not take his antidepressant medications as prescribed. He has a history of alcohol abuse and drinks approximately a fifth to a fifth and a half a day of whiskey every day, has been drinking several years. He denied recent illness. No cough, pain, shortness of breath, fevers or chills. He denies any homicidal thoughts, hallucinations or delusions. His alcohol level in the emergency department was 269, was subsequently admitted for further evaluation and management. Patient sobered up the next day. He was able to communicate normally, he denied any suicidal ideation. He was evasive and has a history, denied any depression or anxiety. Today he was seen by psychiatrist who advised inpatient psychiatric admission. Patient will be transferred to the psychiatric unit for further treatment. Patient Condition at Discharge: Stable Plan - Discharge Summary New Discharge Prescriptions: No Action No Known Home Medications Discharge Medication List No Known Home Medications 06/24/22 [History] Follow up Appointment(s)/Referral(s): None,Stated [Primary Care Provider] - 1-2 days
[2022-06-25] MEDS ORDERED: diazePAM 5 MG TAB PO SCH (16:00)
[2022-06-25 16:37] VITALS: BP 123/72; PULSE 58; RESP 18; TEMP 98.2
[2022-06-26] MEDS ORDERED: THIAMINE 100 MG TAB PO SCH (09:00)
== END 2022-06-25 18:24 ==
LOC: EC 13:07 → 6NMEDSUR 16:19
PROVIDERS: ADMIT Internal Medicine; ATTEND Internal Medicine
DX: F10.129 Alcohol abuse with intoxication, unspecified (principal); F32.9 Major depressive disorder, single episode, unspecified; F10.139 Alcohol abuse with withdrawal, unspecified; J45.909 Unspecified asthma, uncomplicated; F41.9 Anxiety disorder, unspecified; R45.851 Suicidal ideations; F17.200 Nicotine dependence, unspecified, uncomplicated; Z91.14 Patient's other noncompliance with medication regimen; Y90.8 Blood alcohol level of 240 mg/100 ml or more; Z79.899 Other long term (current) drug therapy; Z91.040 Latex allergy status; Z88.0 Allergy status to penicillin; Z86.16 Personal history of COVID-19; Z98.890 Other specified postprocedural states; R74.01 Elevation of levels of liver transaminase levels; Z81.8 Family history of other mental and behavioral disorders; Z81.1 Family history of alcohol abuse and dependence
CPT/HCPCS: 96372; 82075; 99284; 36415; 80053 ×2; 83735 ×2; 85025 ×2; 80306; 87635; G0378 ×2; G0480; J3411; 80320

== ENCOUNTER 2022-06-25 18:06 | Inpatient (IN) | payer MEDICAID, OTHER ==
[2022-06-25] MEDS ORDERED: HALOPERIDOL LACTATE 5 MG/ML 1 ML VIAL IM PRN (18:21)
[2022-06-25] MEDS ORDERED: LORazepam 1 MG TAB PO PRN ×3 (18:21)
[2022-06-25] MEDS ORDERED: MAGNESIUM HYDROXIDE 2,400 MG/10 ML CUP PO PRN (18:21)
[2022-06-25] MEDS ORDERED: MAG HYDROX/AL HYDROX/SIMETH 30 ML CUP PO PRN (18:21)
[2022-06-25] MEDS ORDERED: traZODone HCL 50 MG TAB PO PRN (18:37)
[2022-06-25] MEDS ORDERED: NICOTINE 21MG/24HR PATCH TRANSDERM STA (18:52)
[2022-06-25] MEDS ORDERED: LORazepam 0.5 MG TAB PO PRN (19:44)
[2022-06-25] MEDS: diazePAM 5 MG TAB PO SCH (22:00)
[2022-06-26] MEDS ORDERED: NICOTINE 14MG/24HR PATCH TRANSDERM SCH (09:00)
[2022-06-26] MEDS: FOLIC ACID 1 MG TAB PO SCH (09:41)
[2022-06-26] MEDS: NICOTINE 21MG/24HR PATCH TRANSDERM SCH (09:41)
[2022-06-26] MEDS: diazePAM 5 MG TAB PO SCH ×3 (09:41→22:14)
[2022-06-26] MEDS: MULTIVITAMINS, THERA 1 EACH TAB PO SCH (09:41)
[2022-06-26] MEDS: SERTRALINE 50 MG TAB PO SCH (09:41)
[2022-06-26] MEDS: THIAMINE 100 MG TAB PO SCH (09:41)
--- NOTE | 2022-06-26 19:35 | P.HP ---
Psychiatric H&P - . H&P Date: 06/26/22 History & Physical: IDENTIFYING DATA: Patient is a 27-year-old male with history of MDD and alcoholism who currently lives with his girlfriend, in an apartment, 2 children. 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 HPI: Patient was transferred to the MHU from the medical floor where he was admitted for alcohol withdrawal. Per psychiatry consult note by Dr. Mcwilliams from 06/25/2022, "Patient presented to the hospital yesterday complaining of depression and suicidal thoughts with a plan to hang himself. Patient's urine drug screen was negative. His blood alcohol level was 269. Patient's AST and ALT levels were significantly elevated. Patient had mentioned in the ER that he is drinking more than a fifth of whiskey per day. Patient was admitted to the medical floors for alcohol withdrawal/intoxication. Patient has a history of 2 previous psychiatric admissions for depression and anxiety and alcohol use disorder on the mental health unit. She was seen lying in bed and agreeable to speak to chief writer. He claims that he has been feeling depressed and anxious lately. He states that he was also drinking however was fairly vague and evasive about his drinking. He claims that he has been drinking more lately and explained that it has been at least a fifth of whiskey per day. He states that he does have some withdrawal symptoms at this time including mild tremors and also anxiety and heart racing. He claims that he went through a divorce and is now living with a girlfriend. He states that he stopped taking his Zoloft back in October after he ran out of the prescription and states that "I didn't need them anymore". He denies having any access to guns or weapons. Patient has poor insight and judgment and was fairly superficial with chief writer and minimized his depression and alcohol use. He states that his appetite has been poor and c laims that his sleep has been poor. He claims that he has little motivation. Patient denies any current suicidal or homicidal ideations intent or plan. At this time patient denies any auditory or visual hallucinations. Patient denies any flight of ideas racing thoughts and increased in goal directed behavior. Patient admits to using alcohol as noted above and cigarettes daily." He admits the stated he was suicidal and wanted to hang himself in the context of alcohol dependence and withdrawal. He reports good mood today, denies suicidal ideation, intent or plan today. He denies depressed mood. He reports fair sleep and fair appetite that is improving since arriving to the unit. He has lost 20 pounds in the past 2 months due to alcohol use and decreased food intake. He denies HI, intent or plan. He is currently on Valium 5 mg TID for alcohol withdrawal that is controlling his symptoms. His AST and ALT are elevated from chronic alcohol abuse. He normally drinks about one fifth of wh iskey per day for the past 9 months or longer. He declines residential substance abuse treatment and feels he has a good support system at home. At this time patient denies any auditory or visual hallucinations. Patient denies any flight of ideas racing thoughts and increased in goal directed behavior. He denies drug use. He smokes 1-1.5 ppd. PAST PSYCHIATRIC HISTORY: Patient states that he has a history of depression and anxiety and alcohol abuse. He also has a chronic history of alcohol abuse. He was previously on Zoloft 50 mg daily for mood/anxiety however stopped taking it several months ago. Patient was previously psychiatrically hospitalized in September 2021. Patient denies any psychiatric outpatient follow-up. Patient denies any history of suicide attempts in the past. PMH: asthma ALLERGIES: as per EMR CHEMICAL DEPENDENCY HISTORY: as per HPI FAMILY PSYCHIATRIC/SUBSTANCE USE HISTORY: Mother- bipolar disorder; multiple people in family have alcohol abuse. SOCIAL HISTORY: Per chart, Patient was born and raised in [place] at an early age and moved to [place] afterwards with his family. He states that he completed the 11th grade then dropped out and started working. 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 He states that he also went to a juvenile [facility] center as a kid. He claims that he currently lives with his girlfriend in an apartment, has 2 kids. MENTAL STATUS EXAM: General Appearance: Patient appears to be stated age is alert, short hair, poor dentition, fair hygiene and grooming. Behavior: Patient is seated without any agitated behavior. Speech: Patient's speech is fluent and nonpressured. Mood/Affect: Patient reports their mood is good, affect is congruent and constricted. Suicidality/Homicidality: Patient denies having any homicidal ideation intent or plan. Denies any suicidal ideations intent or plan today. Perceptions: Patient denies any visual hallucinations and denies any auditory hallucinations. Though content/process: There is no evidence of any delusional thought content and thought process is linear and goal-directed. Memory and concentration: AOX3, grossly intact for the purposes of this session. Can spell "WORLD" backwards Judgment and insight: Fair STRENGTHS/WEAKNESSES: strength is that patient is resilient. Weakness is that patient has poor judgment and alcoholism. INTELLECT: Average IMPRESSIONS: Unspecified depressive disorder, rule out MDD Alcohol use disorder, severe, with withdrawal Tobacco use disorder/nicotine dependence PLAN: -Patient is admitted under voluntary status to MHU for stabilization of psychiatric symptoms and safety. Patient has signed adult voluntary form and medication consent and is placed in patient's chart. -Medications: Will taper down Valium 5 mg TID to 5 mg BID for Tuesday with plan to discontinue on Tuesday. He was started on Zoloft 50 mg daily for depression/anxiety, and will continue on 50 mg daily for Tuesday, with plan to increase as tolerated. -Ativan and Haldol PRN for agitation/aggression -Started thiamine, MVM for etoh use -CIWA protocol with Ativan PRN for ETOH withdrawal -Patient was counselled on substance abuse and desired to cut back on use. He declines residential substance abuse treatment. -Patient was informed of the risks, benefits and side effects of the medication and patient verbally consented to taking the medications. Patient signed med consent form and was placed in chart. -Internal Medicine consult to perform medical evaluation and physical. -NRT - nicotine patch -SW on board for discharge planning. Encourage patient to participate in groups to work on coping skills. Allergies Allergy/AdvReac Type Severity Reaction Status Date / Time latex Allergy Rash/Hives Verified 06/25/22 18:33 Penicillins Allergy Rash/Hives Verified 06/25/22 18:33 Vital Signs Temp 98.4 F 06/26/22 09:52 Pulse 64 06/26/22 09:52 Resp BP 118/76 06/26/22 09:52 Pulse Ox FiO2 06/26/22 19:12
--- NOTE | 2022-06-26 22:53 | P.CONS ---
History of Present Illness - Reason for Consult Consult date: 06/26/22 - History of Present Illness The patient is a 27-year-old male with a PMH of alcohol abuse who initially presented to the emergency room for depression with suicidal ideation. The patient reported that he continues to drink a fifth of particular daily. The patient was admitted to the inpatient medical service for alcohol detoxification. Following clearance, he was transferred to the psychiatric unit where he was seen and evaluated. The patient reports that he feels better at the time of interview. Denied any physical complaints. Denied experiencing chest discomfort, shortness with global fever, chills, cough, nausea, vomiting, abdominal pain, diarrhea. Laboratory evaluation was reviewed with abnormal LFTs. Review of systems: Pertinent positives and negatives as discussed in HPI, a complete review of systems was performed and all other systems are negative. Physical examination: General: non toxic, no distress, appears older than stated age, normal weight Derm: no unusual rashes/lesions, no unusual ecchymoses, warm, dry Head: atraumatic, normocephalic, symmetric Eyes: EOMI, no lid lag, anicteric sclera ENT: Nose and ears atraumatic, no thrush, no pharyngeal erythema Neck: trachea midline, supple Mouth: no lip lesion, mucus membranes moist Cardiovascular: S1S2 reg, no murmur, no edema Lungs: CTA bilateral, no rhonchi, no rales , no accessory muscle use Abdominal: soft, nontender to palpation, no guarding Ext: no gross muscle atrophy, no contractures, Neuro: No gross focal neuro deficits noted Psych: Alert, oriented, appropriate affect Assessment/plan Alcohol abuse, impending withdrawal -[facility] protocol -Thiamine, MV -Advised on the importance of cessation Abnormal LFTs -Likely due to ongoing alcohol abuse Depression with suicidal ideation -As per psychiatry Past Medical History Past Medical History: Asthma Additional Past Medical History / Comment(s): covid 07/01/21 History of Any Multi-Drug Resistant Organisms: None Reported Past Surgical History: No Surgical Hx Reported Additional Past Surgical History / Comment(s): sinus surgery Past Psychological History: Anxiety, Depression Smoking Status: Current every day smoker Past Alcohol Use History: Abuse, Daily, Heavy Past Drug Use History: None Reported - Past Family History Father Family Medical History: COPD Medications and Allergies Home Medications Medication Instructions Recorded Confirmed Type No Known Home Medications 06/24/22 06/25/22 History Allergies Allergy/AdvReac Type Severity Reaction Status Date / Time latex Allergy Rash/Hives Verified 06/25/22 18:33 Penicillins Allergy Rash/Hives Verified 06/25/22 18:33 Physical Exam Vitals: Vital Signs Temp Pulse BP 06/26/22 09:52 98.4 F 64 118/76
[2022-06-27] MEDS: FOLIC ACID 1 MG TAB PO SCH (08:39)
[2022-06-27] MEDS: MULTIVITAMINS, THERA 1 EACH TAB PO SCH (08:39)
[2022-06-27] MEDS: SERTRALINE 50 MG TAB PO SCH (08:40)
[2022-06-27] MEDS: THIAMINE 100 MG TAB PO SCH (08:40)
[2022-06-27] MEDS: diazePAM 5 MG TAB PO SCH ×2 (08:40→21:42)
[2022-06-27] MEDS: NICOTINE 21MG/24HR PATCH TRANSDERM SCH (08:40)
[2022-06-27 13:37] LABS: ALT 98 U/L (4-49); AST 179 U/L (17-59); African American GFR (CKD) >90 (>60 ml/min/1.73 sqM); Albumin 4.9 g/dL (3.5-5.0); Alkaline Phosphatase 129 U/L (38-126); Anion Gap 10 mmol/L; Blood Urea Nitrogen 5 mg/dL (9-20); Calcium 9.8 mg/dL (8.4-10.2); Carbon Dioxide 26 mmol/L (22-30); Chloride 105 mmol/L (98-107); Glucose 104 mg/dL (74-99); Non-African American GFR(CKD) >90 (>60 ml/min/1.73 sqM); Potassium 4.4 mmol/L (3.5-5.1); Sodium 141 mmol/L (137-145); Total Bilirubin 1.1 mg/dL (0.2-1.3)
[2022-06-27 17:33] LABS: Chol/HDL Ratio 2.33 Ratio; LDL Cholesterol,Calculated 103.8 mg/dL (0.0-131.0); VLDL Calculation 14.98 mg/dL (5.00-40.00)
--- NOTE | 2022-06-27 22:57 | P.PN ---
Progress Note - Text Progress Note Date: 06/27/22 Interval history: Patient was seen wandering the hallways and was directable and agreeable to speak with music writer. He reports improved mood today but reports sleep was poor last night. He denies alcohol withdrawal symptoms. Vital signs reviewed and are stable. At this time patient denies any suicidal or homicidal ideation, intent or plan. He denies any auditory or visual hallucinations. Patient denies any side effects from the medications and has been compliant with meds. He is tolerating this Zoloft at 50 mg daily, feels it is helping his mood and prefers to stay at this dose. Mental status exam: General Appearance: Patient appears to be stated age, is alert, short hair, poor dentition, fair hygiene and grooming. Behavior: Patient is calm without any agitated behavior. Speech: Patient's speech is fluent and non-pressured. Mood/Affect: Patient reports their mood is good, affect is congruent and constricted. Suicidality/Homicidality: Patient denies having any homicidal ideation intent or plan. Denies any suicidal ideation, intent or plan today. Perceptions: Patient denies any visual hallucinations and denies any auditory hallucinations. Though content/process: There is no evidence of any delusional thought content and thought process is linear and goal-directed. Memory and concentration: AOX3, grossly intact for the purposes of this session. Judgment and insight: Improving mildly Assessment/Plan: Continue with current diagnosis. Patient continues to meet criteria for inpatient psychiatric admission for symptom stabilization and safety. Continue to taper Valium to 5 mg x 1 tomorrow morning, then discontinue. Monitor for medication compliance and for any psychotropic medication side effects. Will continue to monitor ongoing response to treatment. Encouraged participation in milieu.
[2022-06-28] MEDS: FOLIC ACID 1 MG TAB PO SCH (08:34)
[2022-06-28] MEDS: NICOTINE 21MG/24HR PATCH TRANSDERM SCH (08:34)
[2022-06-28] MEDS: SERTRALINE 50 MG TAB PO SCH (08:34)
[2022-06-28] MEDS: diazePAM 5 MG TAB PO SCH (08:34)
[2022-06-28] MEDS: THIAMINE 100 MG TAB PO SCH (08:34)
[2022-06-28] MEDS: MULTIVITAMINS, THERA 1 EACH TAB PO SCH (08:34)
--- NOTE | 2022-06-28 10:45 | P.PN ---
Progress Note - Text Progress Note Date: 06/28/22 Interval history: Patient was seen wandering the hallways and was directable and agreeable to s peak with continuity writer. Patient claims that he is doing a bit better today compared to yesterday. He states that he is taking the Zoloft and is making him feel a bit more optimistic and his mood is improving along with his anxiety. At this time stating that the withdrawal symptoms have been improving as well and denying any tremors. He claims that his girlfriend will be able to take him back at home once he is discharged and states that he does not want to go to rehab and not interested in cravings medications. He states that "I can do this on my own" referring to quitting alcohol. He states that he had a difficult time sleeping last night due to the disruptive milieu. At this time patient denies any suicidal or homicidal ideation, intent or plan. He denies any auditory or visual hallucinations. Patient denies any side effects from the medications and has been compliant with meds. Mental status exam: General Appearance: Patient appears to be stated age, is alert, short hair, poor dentition, fair hygiene and grooming. Behavior: Patient is calm without any agitated behavior. Speech: Patient's speech is fluent and non-pressured. Mood/Affect: Patient reports their mood is improving mildly, affect is congruent and constricted. Suicidality/Homicidality: Patient denies having any homicidal ideation intent or plan. Denies any suicidal ideation, intent or plan today. Perceptions: Patient denies any visual hallucinations and denies any auditory hallucinations. Though content/process: There is no evidence of any delusional thought content and thought process is linear and goal-directed. Memory and concentration: AOX3, grossly intact for the purposes of this session. Judgment and insight: Improving mildly Assessment/Plan: Continue with current diagnosis. Patient continues to meet criteria for inpatient psychiatric admission for symptom stabilization and safety. Continue to taper Valium to 2 mg BID for etoh withdrawal and d/c tomorrow. zoloft 50 mg daily for mood/anxiety. Monitor for medication compliance and for any psychotropic medication side effects. Will continue to monitor ongoing response to treatment. Encouraged participation in milieu. Likely discharge tomorrow back home as patient is not interested in rehab.
[2022-06-28 15:10] VITALS: BMI 18.6
[2022-06-28] MEDS: diazePAM 2 MG TAB PO SCH (22:33)
[2022-06-29 07:02] VITALS: BP 117/62; PULSE 55; RESP 16; TEMP 97.5
[2022-06-29] MEDS: THIAMINE 100 MG TAB PO SCH (08:53)
[2022-06-29] MEDS: SERTRALINE 50 MG TAB PO SCH (08:53)
[2022-06-29] MEDS: diazePAM 2 MG TAB PO SCH (08:53)
[2022-06-29] MEDS: NICOTINE 21MG/24HR PATCH TRANSDERM SCH (08:53)
[2022-06-29] MEDS: MULTIVITAMINS, THERA 1 EACH TAB PO SCH (08:53)
[2022-06-29] MEDS: FOLIC ACID 1 MG TAB PO SCH (08:53)
--- NOTE | 2022-06-29 10:18 | P.DS ---
Providers Date of admission: 06/25/22 18:06 Expected date of discharge: 06/29/22 Attending physician: Hai Mcwilliams MD Consults: 06/25/22 18:21 Consult Physician Routine Consulting Provider: Sonia Hagan Consult Reason/Comments: H & P and medical care Do you want consulting provider notified?: Yes Primary care physician: Stated None - Discharge Diagnosis(es) (1) Depressive disorder Current Visit: Yes Status: Acute Priority: High (2) Alcohol use disorder, severe, dependence Current Visit: Yes Status: Acute Priority: High (3) Nicotine dependence Current Visit: Yes Status: Acute Priority: Low Hospital Course: Admission HPI: Admission note was completed by Dr Galloway "Patient is a 27-year-old male with history of MDD and alcoholism who currently lives with his girlfriend, in an apartment, 2 children. 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 Patient was transferred to the MHU from the medical floor where he was admitted for alcohol withdrawal. Per psychiatry consult note by Dr. Mcwilliams from 06/25/2022, "Patient presented to the hospital yesterday complaining of depression and suicidal thoughts with a plan to hang himself. Patient's urine drug screen was negative. His blood alcohol level was 269. Patient's AST and ALT levels were significantly elevated. Patient had mentioned in the ER that he is drinking more than a fifth of whiskey per day. Patient was admitted to the medical floors for alcohol withdrawal/intoxication. Patient has a history of 2 previous psychiatric admissions for depression and anxiety and alcohol use disorder on the mental health unit. She was seen lying in bed and agreeable to speak to designer/writer. He claims that he has been feeling depressed and anxious lately. He states that he was also drinking however was fairly vague and evasive about his drinking. He claims that he has been drinking more lately and explained that it has been at least a fifth of whiskey per day. He states that he does have some withdrawal symptoms at this time including mild tremors and also anxiety and heart racing. He claims that he went through a divorce and is now living with a girlfriend. He states that he stopped taking his Zoloft back in October after he ran out of the prescription and states that "I didn't need them anymore". He denies having any access to guns or weapons. Patient has poor insight and judgment and was fairly superficial with designer/writer and minimized his depression and alcohol use. He states that his appetite has been poor and claims that his sleep has been poor. He claims that he has little motivation. Patient denies any current suicidal or homicidal ideations intent or plan. At this time patient denies any auditory or visual hallucinations. Patient denies any flight of ideas racing thoughts and increased in goal directed behavior. Patient admits to using alcohol as noted above and cigarettes daily." He admits the stated he was suicidal and wanted to hang himself in the context of alcohol dependence and withdrawal. He reports good mood today, denies suicidal ideation, intent or plan today. He denies depr essed mood. He reports fair sleep and fair appetite that is improving since arriving to the unit. He has lost 20 pounds in the past 2 months due to alcohol use and decreased food intake. He denies HI, intent or plan. He is currently on Valium 5 mg TID for alcohol withdrawal that is controlling his symptoms. His AST and ALT are elevated from chronic alcohol abuse. He normally drinks about one fifth of whiskey per day for the past 9 months or longer. He declines residential substance abuse treatment and feels he has a good support system at home. At this time patient denies any auditory or visual hallucinations. Patient denies any flight of ideas racing thoughts and increased in goal directed behavior. He denies drug use. He smokes 1-1.5 ppd." Hospital course: Upon admission to the unit patient was directable and agreeable to commence treatment and signed adult voluntary form. Patient got along well with other patients on the unit and followed unit protocol. Patient was compliant with the medications and denied any side effects throughout hospital course. Patient was started on standing dose of Valium which was titrated off for alcohol withdrawal symptoms. Patient was also restarted back on Zoloft 50 mg daily for mood/anxiety. Patient spoke of his stressors and engaged in therapy both group and individual. Patient was also seen by medical team for history and physical exam. Patient had elevated LFTs and designer/writer discussed these findings with patient and patient states that he plans on following up with a designer/writer upon discharge. Throughout the course of the hospitalization patient gradually improved with regards to mood, anxiety, sleep and became more future oriented with improved insight and judgment. On the day of discharge patient denied any suicidal or homicidal ideations intent or plan denied any auditory or visual hallucinations. Patient endorsed wanting to live for his kids and also his health. The patient denied any access to guns or weapons. Patient denied any paranoia and did not endorse any delusions. Patient does have a significant history of substance abuse and was counseled on abstaining from all substances including alcohol and marijuana. Patient was offered however declined inpatient substance-abuse rehab. Patient was also counseled on the medications and need for regular compliance and was encouraged to follow-up with their outpatient appointment for mental health and also for primary care. Prior to discharge a family meeting will be arranged by social human services assistants to answer any questions and ensure safety upon discharge. wash worker to ensure that family removes or locks away any guns or weapons in the house. Mental status exam: General Appearance: Patient appears to be thin, shaved head, poor dentition, stated age is alert, pleasant, and cooperative. Patient is in no acute distress and has improved hygiene and grooming Behavior: Patient is calmly seated without any agitated behavior. Speech: Patient's speech is fluent and nonpressured. Mood/Affect: Patient reports their mood is "better", affect is congruent and euthymic. Suicidality/Homicidality: Patient denies having any suicidal or homicidal ideation intent or plan. Perceptions: Patient denies any auditory or visual hallucinations. Though content/process: There is no evidence of any delusional thought content and thought process is linear and goal-directed. more future oriented Memory and concentration: AOX3, grossly intact for the purposes of this session. Can spell "WORLD" backwards correctly. Judgment and insight: chronically poor, however has improved with guarded prognosis Impression: Depressive disorder unspecified Alcohol use disorder, severe dependence Nicotine dependence Plan: -Continue with discharge today as patient has improved and stabilized psychiatrically and is not currently an imminent threat to himself and/or others. Patient will remain at chronically elevated risk for harm to self and/or others due to his impulsivity and substance abuse. -Continue medications: Zoloft 50 mg daily for depression/anxiety. Patient states that he does not want any anti-cravings medications at this time for alcohol use. -Patient was counseled on the need for medication compliance and appropriate follow-up at mental health and also primary care for medical issues. Patient verbalized understanding and agreed. -Social work to arrange for and conduct family meeting to ensure safety upon discharge and answer any questions/concerns. Social work also to arrange for patients follow up appointments with [facility] for psychiatric care along with follow up with primary care provider. -Patient counseled on abstaining from recreational drugs and marijuana and alcohol. Was informed/educated on the adverse effects on their physical and mental health. Patient verbally agreed and understood. Patient was offered substance abuse treatment however declined at this time. -Patient was instructed to return to the hospital or seek immediate medical care if their psychiatric or medical symptoms do worsen or reoccur. Allergies Allergy/AdvReac Type Severity Reaction Status Date / Time latex Allergy Rash/Hives Verified 06/25/22 18:33 Penicillins Allergy Rash/Hives Verified 06/25/22 18:33 Laboratory Results Sodium 141 mmol/L (137-145) 06/27/22 13:11 Potassium 4.4 mmol/L (3.5-5.1) 06/27/22 13:11 Chloride 105 mmol/L (98-107) 06/27/22 13:11 Carbon Dioxide 26 mmol/L (22-30) 06/27/22 13:11 Anion Gap 10 mmol/L 06/27/22 13:11 BUN 5 mg/dL (9-20) L 06/27/22 13:11 Creatinine 0.82 mg/dL (0.66-1.25) 06/27/22 13:11 Est GFR (CKD-EPI)AfAm >90 (>60 ml/min/1.73 sqM) 06/27/22 13:11 Est GFR (CKD-EPI)NonAf >90 (>60 ml/min/1.73 sqM) 06/27/22 13:11 Glucose 104 mg/dL (74-99) H 06/27/22 13:[address] Glu mg/dL 104 06/27/22 13:11 Hemoglobin A1c 5.3 % (0.0-6.0) 06/27/22 13:11 Calcium 9.8 mg/dL (8.4-10.2) 06/27/22 13:11 Total Bilirubin 1.1 mg/dL (0.2-1.3) 06/27/22 13:11 AST 179 U/L (17-59) H 06/27/22 13:11 ALT 98 U/L (4-49) H 06/27/22 13:11 Alkaline Phosphatase 129 U/L (38-126) H 06/27/22 13:11 Total Protein 8.0 g/dL (6.3-8.2) 06/27/22 13:11 Albumin 4.9 g/dL (3.5-5.0) 06/27/22 13:11 Triglycerides 74.90 mg/dL (0.00-149.00) 06/27/22 13:11 Cholesterol 208.00 mg/dL (0.00-200.00) H 06/27/22 13:11 LDL Cholesterol, Calc 103.8 mg/dL (0.0-131.0) 06/27/22 13:11 VLDL Cholesterol, Calc 14.98 mg/dL (5.00-40.00) 06/27/22 13:11 HDL Cholesterol 89.20 mg/dL (40.00-60.00) H 06/27/22 13:11 Cholesterol/HDL Ratio 2.33 Ratio 06/27/22 13:11 Vital Signs Temp 97.5 F L 06/29/22 07:01 Pulse 55 L 06/29/22 07:01 Resp 16 06/29/22 07:01 BP 117/62 06/29/22 07:01 Pulse Ox FiO2 Intake & Output 06/28/22 06/29/22 06/29/22 18:59 06:59 18:59 Weight 57.3 kg Patient Condition at Discharge: Stable Plan - Discharge Summary New Discharge Prescriptions: New Nicotine 21Mg/24Hr Patch [Habitrol] 1 patch TRANSDERM DAILY 14 Days patch Thiamine [Vitamin B-1] 100 mg PO DAILY tab Folic Acid 1 mg PO DAILY tab Multivitamins, Thera [Multivitamin (formulary)] 1 each PO DAILY tab Sertraline [Zoloft] 50 mg PO DAILY 30 Days tab Discharge Medication List Folic Acid 1 mg PO DAILY tab 06/29/22 [Rx] Multivitamins, Thera [Multivitamin (formulary)] 1 each PO DAILY tab 06/29/22 [Rx] Nicotine 21Mg/24Hr Patch [Habitrol] 1 patch TRANSDERM DAILY 14 Days patch 06/29/22 [Rx] Sertraline [Zoloft] 50 mg PO DAILY 30 Days tab 06/29/22 [Rx] Thiamine [Vitamin B-1] 100 mg PO DAILY tab 06/29/22 [Rx] Discharge Disposition: HOME SELF-CARE
== END 2022-06-29 10:55 | disposition home or self-care (01) | DRG 881 ==
LOC: 3MHU 18:06
PROVIDERS: ADMIT Psychiatry & Neurology Psychiatry; ATTEND Psychiatry & Neurology Psychiatry
DX: F32.A Depression, unspecified (principal); F10.239 Alcohol dependence with withdrawal, unspecified; R45.851 Suicidal ideations; F17.210 Nicotine dependence, cigarettes, uncomplicated; F41.9 Anxiety disorder, unspecified; J45.909 Unspecified asthma, uncomplicated; Y90.8 Blood alcohol level of 240 mg/100 ml or more; Z79.899 Other long term (current) drug therapy
CPT/HCPCS: 80053; 80061; 83036

== ENCOUNTER 2022-08-28 01:16 | Emergency (ER) | payer OTHER ==
[2022-08-28 01:57] VITALS: RESP 16
[2022-08-28] MEDS ORDERED: ACETAMINOPHEN TAB 500 MG TAB PO STA (04:38)
[2022-08-28] MEDS ORDERED: CLINDAMYCIN 150 MG CAP PO STA (04:40)
--- NOTE | 2022-08-28 04:43 | ED ---
General Adult HPI - General Chief complaint: Dental/Oral Stated complaint: Tooth pain Time Seen by Provider: 08/28/22 04:16 Source: patient Mode of arrival: ambulatory Limitations: no limitations - History of Present Illness Initial comments: This is a 27-year-old male with a past medical history including asthma presents emergency department for dental pain. The patient stated that the teeth in his right upper mouth have become more painful and has shooting pains up the right side of his face. The patient did state that the pain was worse with cold air and stated that he has had "messed up teeth" over the last several years. The patient did state that he does smoke tobacco but denied any trauma to the teeth. The patient denied any fevers or chills as well as any nausea and vomiting. - Related Data Previous Rx's Medication Instructions Recorded Folic Acid 1 mg PO DAILY tab 06/29/22 Multivitamins, Thera [Multivitamin 1 each PO DAILY tab 06/29/22 (formulary)] Nicotine 21Mg/24Hr Patch [Habitrol] 1 patch TRANSDERM DAILY 14 Days 06/29/22 patch Sertraline [Zoloft] 50 mg PO DAILY 30 Days tab 06/29/22 Thiamine [Vitamin B-1] 100 mg PO DAILY tab 06/29/22 Clindamycin [Cleocin] 450 mg PO Q6H 5 Days #60 cap 08/28/22 Allergies Allergy/AdvReac Type Severity Reaction Status Date / Time latex Allergy Rash/Hives Verified 08/28/22 01:55 Penicillins Allergy Rash/Hives Verified 08/28/22 01:55 Review of Systems ROS Statement: Those systems with pertinent positive or pertinent negative responses have been documented in the HPI. ROS Other: All systems not noted in ROS Statement are negative. Past Medical History Past Medical History: Asthma Additional Past Medical History / Comment(s): covid 07/01/21 History of Any Multi-Drug Resistant Organisms: None Reported Past Surgical History: No Surgical Hx Reported Additional Past Surgical History / Comment(s): sinus surgery Past Psychological History: Anxiety, Depression Smoking Status: Current every day smoker Past Alcohol Use History: Abuse, Daily, Heavy Past Drug Use History: None Reported - Past Family History Father Family Medical History: COPD General Exam Limitations: no limitations General appearance: alert, in no apparent distress Head exam: Present: atraumatic, normocephalic, normal inspection Eye exam: Present: normal appearance, PERRL Pupils: Present: normal accommodation ENT exam: Present: mucous membranes moist, other (Poor dentition noted. There was multiple eroding teeth on the right upper mouth associated with irritation and erythema of the gumline) Neck exam: Present: normal inspection, full ROM Respiratory exam: Present: normal lung sounds bilaterally Cardiovascular Exam: Present: regular rate, normal rhythm, normal heart sounds GI/Abdominal exam: Present: soft, normal bowel sounds Extremities exam: Present: normal inspection, full ROM, normal capillary refill Back exam: Present: normal inspection, full ROM Neurological exam: Present: alert, oriented X3, CN II-XII intact Psychiatric exam: Present: normal affect, normal mood Skin exam: Present: warm, dry Course Vital Signs 08/28/22 08/28/22 01:55 04:53 Temperature 98.1 F 97.4 F L Pulse Rate 77 78 Respiratory 16 16 Rate Blood Pressure 125/91 142/74 O2 Sat by Pulse 98 98 Oximetry Medical Decision Making - Medical Decision Making Was pt. sent in by a medical professional or institution (Dr. PA, MANAGER BENEFIT, urgent care, hospital, or usp...) When possible be specific @ -No Did you speak to anyone other than the patient for history (EMS, parent, family, police, friend...)? What history was obtained from this source @ -No Did you review nursing and triage notes (agree or disagree)? Why? @ -I reviewed and agree with nursing and triage notes Were old charts reviewed (outside hosp., previous admission, EMS record, old EKG, old radiological studies, urgent care reports/EKG's, usp records)? Report findings @ -No old charts were reviewed Differential Diagnosis (chest pain, altered mental status, abdominal pain women, abdominal pain men, vaginal bleeding, weakness, fever, dyspnea, syncope, headache, dizziness, GI bleed, back pain, seizure, CVA, palpatations, mental health)? @ -Dental abscess, dental pain, gingivitis EKG interpreted by me (3pts min.). @ -None X-rays interpreted by me (1pt min.). @ -None done CT interpreted by me (1pt min.). @ -None done U/S interpreted by me (1pt. min.). @ -None done What testing was considered but not performed or refused? (CT, X-rays, U/S, labs)? Why? @ -None What meds were considered but not given or refused? Why? @ -None Did you discuss the management of the patient with other professionals (professionals i.e. , PA, MANAGER BENEFIT, lab, RT, psych nurse, social and political studies professor, respiratory care technician, teacher, safety security officer, case management social worker)? Give summary @ -No Was smoking cessation discussed for >3mins.? @ -Yes Was critical care preformed (if so, how long)? @ -No Were there social determinants of health that impacted care today? How? (Homelessness, low income, unemployed, alcoholism, drug addiction, transportation, low edu. Level, literacy, decrease access to med. care, [facility], rehab)? @ -No Was there de-escalation of care discussed even if they declined (Discuss DNR or withdrawal of care, Hospice)? DNR status @ -No What co-morbidities impacted this encounter? (DM, HTN, Smoking, COPD, CAD, Cancer, CVA, ARF, Chemo, Hep., AIDS, mental health diagnosis, sleep apnea, mo rbid obesity)? @ -Asthma, overall poor dentition Was patient admitted / discharged? Hospital course, mention meds given and route, prescriptions, significant lab abnormalities, going to OR and other pertinent info. @ -The patient was seen and evaluated emergency department. Physical exam, the patient was resting in bed without any acute distress. Vital signs admission were stable. Physical exam did show poor dentition with multiple eroding teeth in the right upper mouth. The patient likely had gingivitis and dental caries along with developing dental infection. The patient was told to take Motrin however stated that he attempted to take this in the past but it year to his asthma so he no longer takes any NSAIDs. The patient was given a prescription for Augmentin as well as a dose of Augmentin emergency department. The patient was strongly advised to follow-up with his dentist as he would need to extraction as well as possible root canals for his pain. The patient was agreeable to this and all discretions were answered. The patient was discharged home in stable condition. Undiagnosed new problem with uncertain prognosis? @ -No Drug Therapy requiring intensive monitoring for toxicity (Heparin, Nitro, Insulin, Cardizem)? @ -No Were any procedures done? @ -No Diagnosis/symptom? @ -Dental pain, infection Acute, or Chronic, or Acute on Chronic? @ -Acute on chronic Uncomplicated (without systemic symptoms) or Complicated (systemic symptoms)? @ -Uncomplicated Side effects of treatment? @ -No Exacerbation, Progression, or Severe Exacerbation? @ -No Poses a threat to life or bodily function? How? (Chest pain, [place], [place], pneumonia, PE, COPD, DKA, ARF, appy, cholecystitis, CVA, Diverticulitis, Homicidal, Suicidal, threat to staff... and all critical care pts) @ -No Disposition Clinical Impression: Gingivitis, Pain, dental Disposition: HOME SELF-CARE Condition: Stable Instructions (If sedation given, give patient instructions): Toothache (ED) Prescriptions: Clindamycin [Cleocin] 450 mg PO Q6H 5 Days #60 cap Is patient prescribed a controlled substance at d/c from ED?: No Referrals: Perez Morel DO [Primary Care Provider] - 1-2 days Time of Disposition: 04:35
[2022-08-28 04:58] VITALS: BP 142/74; PULSE 78; TEMP 97.4
== END 2022-08-28 04:53 | disposition home or self-care (01) ==
LOC: EC 01:16
DX: K05.10 Chronic gingivitis, plaque induced (principal); J45.909 Unspecified asthma, uncomplicated; F41.9 Anxiety disorder, unspecified; F32.A Depression, unspecified; F17.200 Nicotine dependence, unspecified, uncomplicated; Z91.040 Latex allergy status; Z88.0 Allergy status to penicillin
CPT/HCPCS: 99282

== ENCOUNTER 2023-10-28 20:39 | Inpatient (IN) | payer MEDICAID, OTHER ==
[2023-10-28] MEDS: LORazepam 1 MG TAB PO STA (23:58)
[2023-10-29] MEDS ORDERED: LORazepam 1 MG TAB PO PRN ×6 (00:29→19:51)
--- NOTE | 2023-10-29 00:30 | ED ---
Psych HPI - General Chief Complaint: Psychiatric Symptoms Stated Complaint: mental health Time Seen by Provider: 10/28/23 21:00 Source: patient Mode of arrival: ambulatory - History of Present Illness Initial Comments: 28-year-old male with past medical history of alcohol abuse who presents emergency department with hopelessness and suicidal ideations. States he has been depressed for some time. He is supposed to take medications for his mental health however he has not taken them in close to 1 year. He denies plan. No attempts. He feels that the world would be a better place if he was not here. He admits to daily alcohol use. Drinks up to 1/5 a day. He denies illicit drug use. No homicidal ideations. No hallucinations - Related Data Home Medications Medication Instructions Recorded Confirmed Albuterol Inhaler [Ventolin Hfa 2 puff INHALATION RT-QID PRN 10/28/23 10/28/23 Inhaler] Allergies Allergy/AdvReac Type Severity Reaction Status Date / Time latex Allergy Rash/Hives Verified 10/29/23 22:46 Penicillins Allergy Rash/Hives Verified 10/29/23 22:46 all over bidy Review of Systems ROS Statement: Those systems with pertinent positive or pertinent negative responses have been documented in the HPI. ROS Other: All systems not noted in ROS Statement are negative. Past Medical History Past Medical History: Asthma Additional Past Medical History / Comment(s): covid 07/01/21 History of Any Multi-Drug Resistant Organisms: None Reported Past Surgical History: No Surgical Hx Reported Additional Past Surgical History / Comment(s): sinus surgery Past Psychological History: Anxiety, Depression Smoking Status: Current every day smoker Past Alcohol Use History: Abuse, Daily, Heavy Past Drug Use History: None Reported - Past Family History Father Family Medical History: COPD General Exam Limitations: no limitations General appearance: alert, in no apparent distress Head exam: Present: atraumatic, normocephalic, normal inspection Eye exam: Present: normal appearance, PERRL, EOMI. Absent: scleral icterus, conjunctival injection, periorbital swelling ENT exam: Present: normal exam, mucous membranes moist Neck exam: Present: normal inspection. Absent: tenderness, meningismus, lymphadenopathy Respiratory exam: Present: normal lung sounds bilaterally. Absent: respiratory distress, wheezes, rales, rhonchi, stridor Cardiovascular Exam: Present: regular rate, normal rhythm, normal heart sounds. Absent: systolic murmur, diastolic murmur, rubs, gallop, clicks GI/Abdominal exam: Present: soft, normal bowel sounds. Absent: distended, tenderness, guarding, rebound, rigid Extremities exam: Present: normal inspection, full ROM, normal capillary refill. Absent: tenderness, pedal edema, joint swelling, calf tenderness Back exam: Present: normal inspection Neurological exam: Present: alert, oriented X3, CN II-XII intact Psychiatric exam: Present: normal affect, normal mood Skin exam: Present: warm, dry, intact, normal color. Absent: rash Course Vital Signs 10/28/23 10/29/23 10/29/23 20:45 02:09 05:21 Temperature 99.0 F 98.6 F Pulse Rate 107 H 104 H 109 H Respiratory 18 16 18 Rate Blood Pressure 136/96 107/76 100/63 O2 Sat by Pulse 100 100 99 Oximetry Medical Decision Making - Medical Decision Making Was pt. sent in by a medical professional or institution (, PA, MANAGER CONCRETE, urgent care, hospital, or residential...) When possible be specific @ -No Did you speak to anyone other than the patient for history (EMS, parent, family, police, friend...)? What history was obtained from this source @ -No Did you review nursing and triage notes (agree or disagree)? Why? @ -I reviewed and agree with nursing and triage notes Were old charts reviewed (outside hosp., previous admission, EMS record, old EKG, old radiological studies, urgent care reports/EKG's, residential records)? Report findings @ -No old charts were reviewed Differential Diagnosis (chest pain, altered mental status, abdominal pain women, abdominal pain men, vaginal bleeding, weakness, fever, dyspnea, syncope, headache, dizziness, GI bleed, back pain, seizure, CVA, palpatations, mental health, musculoskeletal)? @ -Differential Mental Health Depression, anxiety, bipolar, psychosis, schizophrenia, borderline personality, situational depression, adjustment disorder, behavioral disorder, brain tumor, malingering, substance abuse, encephalopathy, medication reaction, dementia, hypothyroidism, degenerative neurologic disorder, lupus.... This is not meant to be all-inclusive list EKG interpreted by me (3pts min.). @ -Not done X-rays interpreted by me (1pt min.). @ -None done CT interpreted by me (1pt min.). @ -None done U/S interpreted by me (1pt. min.). @ -None done What testing was considered but not performed or refused? (CT, X-rays, U/S, labs)? Why? @ -None What meds were considered but not given or refused? Why? @ -None Did you discuss the management of the patient with other professionals (professionals i.e. DrHuy, PA, MANAGER CONCRETE, lab, RT, psych nurse, social media marketing analyst, bean picker, teacher, community resource officer, nurse case manager)? Give summary @ -disposal worker Gualberto who evaluates the patient Was smoking cessation discussed for >3mins.? @ -No Was critical care preformed (if so, how long)? @ -No Were there social determinants of health that impacted care today? How? (Homelessness, low income, unemployed, alcoholism, drug addiction, transportation, low edu. Level, literacy, decrease access to med. care, [facility], rehab)? @ -Alcohol abuse Was there de-escalation of care discussed even if they declined (Discuss DNR or withdrawal of care, Hospice)? DNR status @ -No What co-morbidities impacted this encounter? (DM, HTN, Smoking, COPD, CAD, Cancer, CVA, ARF, Chemo, Hep., AIDS, mental health diagnosis, sleep apnea, morbid obesity)? @ -Depression and anxiety Was patient admitted / discharged? Hospital course, mention meds given and route, prescriptions, significant lab abnormalities, going to OR and other pertinent info. @ -Upon arrival patient placed in room 9. Thorough history and physical exam was performed. Patient does report hopelessness and suicidal ideations without a plan. Patient is evaluated by social work. He does require placement. I did fill out a certification on the patient. He is currently pending transport at this time Undiagnosed new problem with uncertain prognosis? @ -No Drug Therapy requiring intensive monitoring for toxicity (Heparin, Nitro, Insulin, Cardizem)? @ -No Were any procedures done? @ -No Diagnosis/symptom? @ -Acute depression Acute, or Chronic, or Acute on Chronic? @ -Acute Uncomplicated (without systemic symptoms) or Complicated (systemic symptoms)? @ -Complicated Side effects of treatment? @ -No Exacerbation, Progression, or Severe Exacerbation? @ -No Poses a threat to life or bodily function? How? (Chest pain, USA, SC, pneumonia, PE, COPD, DKA, ARF, appy, cholecystitis, CVA, Diverticulitis, Homicidal, Suicidal, threat to staff... and all critical care pts) @ -Yes as patient is suicidal - Lab Data Result diagrams: 10/30/23 07:24 10/31/23 09:04 Lab Results 10/29/23 10/29/23 10/29/23 Range/Units 00:50 00:55 00:55 WBC 5.4 (3.8-10.6) k/uL RBC 3.06 L (4.30-5.90) m/uL Hgb 11.6 L (13.0-17.5) gm/dL Hct 31.6 L (39.0-53.0) % MCV 103.0 H (80.0-100.0) fL MCH 37.9 H (25.0-35.0) pg MCHC 36.8 (31.0-37.0) g/dL RDW 15.4 (11.5-15.5) % Plt Count 111 L (150-450) k/uL MPV 9.1 Neutrophils % 64 % Lymphocytes % 25 % Monocytes % 8 % Eosinophils % 1 % Basophils % 1 % Neutrophils # 3.4 (1.3-7.7) k/uL Lymphocytes # 1.4 (1.0-4.8) k/uL Monocytes # 0.4 (0-1.0) k/uL Eosinophils # 0.1 (0-0.7) k/uL Basophils # 0.0 (0-0.2) k/uL Manual Slide Review Performed RBC Morphology Normal Macrocytosis Slight Sodium 137 (137-145) mmol/L Potassium 2.7 L* (3.5-5.1) mmol/L Chloride 98 (98-107) mmol/L Carbon Dioxide 28 (22-30) mmol/L Anion Gap 11 mmol/L BUN 2 L (9-20) mg/dL Creatinine 0.52 L (0.66-1.25) mg/dL Est GFR (CKD-EPI)AfAm >90 (>60 ml/min/1.73 sqM) Est GFR (CKD-EPI)NonAf >90 (>60 ml/min/1.73 sqM) Glucose 109 H (74-99) mg/dL Calcium 8.0 L (8.4-10.2) mg/dL Total Bilirubin 1.8 H (0.2-1.3) mg/dL AST 170 H (17-59) U/L ALT 44 (4-49) U/L Alkaline Phosphatase 176 H (38-126) U/L Total Protein 6.6 (6.3-8.2) g/dL Albumin 3.5 (3.5-5.0) g/dL Urine Color Urine Appearance (Clear) Urine pH (5.0-8.0) Ur Specific [place] (1.001-1.035) Urine Protein (Negative) Urine Glucose (UA) (Negative) Urine Ketones (Negative) Urine Blood (Negative) Urine Nitrite (Negative) Urine Bilirubin (Negative) Urine Urobilinogen (<2.0) mg/dL Ur Leukocyte Esterase (Negative) Urine RBC (0-5) /hpf Urine WBC (0-5) /hpf Urine Mucus (None) /hpf Urine Opiates Screen (NotDetected) Ur Oxycodone Screen (NotDetected) Urine Methadone Screen (NotDetected) Ur Barbiturates Screen (NotDetected) U Tricyclic Antidepress (NotDetected) Ur Phencyclidine Scrn (NotDetected) Ur Amphetamines Screen (NotDetected) U Methamphetamines Scrn (NotDetected) U Benzodiazepines Scrn (NotDetected) Urine Cocaine Screen (NotDetected) U Marijuana (THC) Screen (NotDetected) Influenza Type A (PCR) Not Detected (Not Detectd) Influenza Type B (PCR) Not Detected (Not Detectd) RSV (PCR) Not Detected (Not Detectd) SARS-CoV-2 (PCR) Not Detected (Not Detectd) 10/29/23 10/29/23 Range/Units 02:53 04:50 WBC (3.8-10.6) k/uL RBC (4.30-5.90) m/uL Hgb (13.0-17.5) gm/dL Hct (39.0-53.0) % MCV (80.0-100.0) fL MCH (25.0-35.0) pg MCHC (31.0-37.0) g/dL RDW (11.5-15.5) % Plt Count (150-450) k/uL MPV Neutrophils % % Lymphocytes % % Monocytes % % Eosinophils % % Basophils % % Neutrophils # (1.3-7.7) k/uL Lymphocytes # (1.0-4.8) k/uL Monocytes # (0-1.0) k/uL Eosinophils # (0-0.7) k/uL Basophils # (0-0.2) k/uL Manual Slide Review RBC Morphology Macrocytosis Sodium (137-145) mmol/L Potassium 3.6 (3.5-5.1) mmol/L Chloride (98-107) mmol/L Carbon Dioxide (22-30) mmol/L Anion Gap mmol/L BUN (9-20) mg/dL Creatinine (0.66-1.25) mg/dL Est GFR (CKD-EPI)AfAm (>60 ml/min/1.73 sqM) Est GFR (CKD-EPI)NonAf (>60 ml/min/1.73 sqM) Glucose (74-99) mg/dL Calcium (8.4-10.2) mg/dL Total Bilirubin (0.2-1.3) mg/dL AST (17-59) U/L ALT (4-49) U/L Alkaline Phosphatase (38-126) U/L Total Protein (6.3-8.2) g/dL Albumin (3.5-5.0) g/dL Urine Color Yellow Urine Appearance Clear (Clear) Urine pH 7.0 (5.0-8.0) Ur Specific [place] 1.012 (1.001-1.035) Urine Protein Trace H (Negative) Urine Glucose (UA) Negative (Negative) Urine Ketones Negative (Negative) Urine Blood Negative (Negative) Urine Nitrite Negative (Negative) Urine Bilirubin 1+ H (Negative) Urine Urobilinogen 8.0 (<2.0) mg/dL Ur Leukocyte Esterase Trace H (Negative) Urine RBC 1 (0-5) /hpf Urine WBC 4 (0-5) /hpf Urine Mucus Many H (None) /hpf Urine Opiates Screen Not Detected (NotDetected) Ur Oxycodone Screen Not Detected (NotDetected) Urine Methadone Screen Not Detected (NotDetected) Ur Barbiturates Screen Not Detected (NotDetected) U Tricyclic Antidepress Not Detected (NotDetected) Ur Phencyclidine Scrn Not Detected (NotDetected) Ur Amphetamines Screen Not Detected (NotDetected) U Methamphetamines Scrn Not Detected (NotDetected) U Benzodiazepines Scrn Detected H (NotDetected) Urine Cocaine Screen Not Detected (NotDetected) U Marijuana (THC) Screen Not Detected (NotDetected) Influenza Type A (PCR) (Not Detectd) Influenza Type B (PCR) (Not Detectd) RSV (PCR) (Not Detectd) SARS-CoV-2 (PCR) (Not Detectd) Disposition Clinical Impression: Suicidal ideation Disposition: ADMITTED IP TO THIS HOSP Condition: Serious Is patient prescribed a controlled substance at d/c from ED?: No
[2023-10-29] MEDS: THIAMINE 100 MG/ML 2 ML VIAL IM STA (01:03)
[2023-10-29 01:09] LABS: Basophils % (A) 1 %; Eosinophils # (A) 0.1 k/uL (0-0.7); Eosinophils % (A) 1 %; HCT 31.6 % (39.0-53.0); HGB 11.6 gm/dL (13.0-17.5); Lymphocytes # (A) 1.4 k/uL (1.0-4.8); Lymphocytes % (A) 25 %; MCH 37.9 pg (25.0-35.0); MCHC 36.8 g/dL (31.0-37.0); Macrocytosis Slight; Mean Platelet Volume 9.1; Monocytes # (A) 0.4 k/uL (0-1.0); Monocytes % (A) 8 %; Neutrophils # (A) 3.4 k/uL (1.3-7.7); Neutrophils % (A) 64 %; RBC 3.06 m/uL (4.30-5.90); RDW 15.4 % (11.5-15.5); WBC 5.4 k/uL (3.8-10.6)
[2023-10-29 01:44] LABS: ALT 44 U/L (4-49); AST 170 U/L (17-59); African American GFR (CKD) >90 (>60 ml/min/1.73 sqM); Albumin 3.5 g/dL (3.5-5.0); Alkaline Phosphatase 176 U/L (38-126); Anion Gap 11 mmol/L; Blood Urea Nitrogen 2 mg/dL (9-20); Carbon Dioxide 28 mmol/L (22-30); Chloride 98 mmol/L (98-107); Glucose 109 mg/dL (74-99); Non-African American GFR(CKD) >90 (>60 ml/min/1.73 sqM); Sodium 137 mmol/L (137-145); Total Bilirubin 1.8 mg/dL (0.2-1.3); Total Protein 6.6 g/dL (6.3-8.2)
[2023-10-29 01:47] LABS: Potassium 2.7 mmol/L (3.5-5.1)
[2023-10-29] MEDS: POTASSIUM CHLORIDE ER 20 MEQ TAB.ER PO STA (02:07)
[2023-10-29] MEDS: LORazepam 0.5 MG TAB PO PRN (02:12)
[2023-10-29 02:26] LABS: Platelet Count 111 k/uL (150-450)
[2023-10-29 02:28] LABS: RBC Morphology Normal
[2023-10-29] MEDS: POTASSIUM CHLORIDE 10 MEQ in WATER FOR INJECTION 1 100ML.BAG IVPB SCH (02:55)
[2023-10-29 03:06] LABS: Appearance,Urine Clear (Clear); Bilirubin,Urine 1+ (Negative); Blood,Urine Negative (Negative); Color,Urine Yellow; Glucose,Urine (UA) Negative (Negative); Ketones,Urine Negative (Negative); Leukocyte Esterase,Urine Trace (Negative); Mucus,Urine Many /hpf; Nitrite,Urine Negative (Negative); Protein,Urine Trace (Negative); RBC,Urine 1 /hpf (0-5); Specific Gravity,Urine 1.012 (1.001-1.035); WBC,Urine 4 /hpf (0-5)
[2023-10-29 03:13] LABS: Amphetamine Screen,Urine Not Detected (NotDetected); Barbiturate Screen,Urine Not Detected (NotDetected); Benzodiazepines Screen,Urine Detected (NotDetected); Cocaine Screen,Urine Not Detected (NotDetected); Methadone Screen, Urine Not Detected (NotDetected); Opiate Screen,Urine Not Detected (NotDetected); Oxycodone Screen, Urine Not Detected (NotDetected); Phencyclidine Screen,Urine Not Detected (NotDetected); Tricyclic Antidepressant,Urine Not Detected (NotDetected); Urn Cannabinoid Scrn Not Detected (NotDetected)
[2023-10-29] MEDS ORDERED: ACETAMINOPHEN TAB 325 MG TAB PO PRN (05:26)
[2023-10-29] MEDS ORDERED: MAG HYDROX/AL HYDROX/SIMETH 355 ML BOTTLE PO PRN (05:26)
[2023-10-29] MEDS ORDERED: IBUPROFEN 600 MG TAB PO PRN (05:26)
[2023-10-29] MEDS ORDERED: MAGNESIUM HYDROXIDE 2,400 MG/30 ML CUP PO PRN (05:26)
[2023-10-29] MEDS ORDERED: ALBUTEROL INHALER 60 PUFF/8 GM INHALER (MHU) INHALATION PRN (05:39)
[2023-10-29] MEDS: LORazepam 1 MG TAB PO PRN ×3 (06:22→20:15)
[2023-10-29] MEDS ORDERED: THIAMINE 100 MG TAB PO SCH (09:00)
[2023-10-29] MEDS: FOLIC ACID 1 MG TAB PO SCH (09:31)
[2023-10-29] MEDS: MULTIVITAMINS, THERA 1 EACH TAB PO SCH (09:32)
--- NOTE | 2023-10-29 10:07 | P.HP ---
Psychiatric H&P - . H&P Date: 10/29/23 History & Physical: Allergies Allergy/AdvReac Type Severity Reaction Status Date / Time latex Allergy Rash/Hives Verified 10/28/23 21:24 Penicillins Allergy Rash/Hives Verified 10/28/23 21:24 all over bidy Vital Signs Temp 98.2 F 10/29/23 09:44 Pulse 114 H 10/29/23 09:44 Resp 18 10/29/23 09:44 BP 112/66 10/29/23 09:44 Pulse Ox 95 10/29/23 06:17 FiO2 Intake & Output 10/28/23 10/29/23 10/29/23 18:59 06:59 18:59 Weight 52.526 kg Laboratory Last Values WBC 5.4 k/uL (3.8-10.6) 10/29/23 00:55 RBC 3.06 m/uL (4.30-5.90) L 10/29/23 00:55 Hgb 11.6 gm/dL (13.0-17.5) L 10/29/23 00:55 Hct 31.6 % (39.0-53.0) L 10/29/23 00:55 MCV 103.0 fL (80.0-100.0) H 10/29/23 00:55 MCH 37.9 pg (25.0-35.0) H 10/29/23 00:55 MCHC 36.8 g/dL (31.0-37.0) 10/29/23 00:55 RDW 15.4 % (11.5-15.5) 10/29/23 00:55 Plt Count 111 k/uL (150-450) L 10/29/23 00:55 MPV 9.1 10/29/23 00:55 Neutrophils % 64 % 10/29/23 00:55 Lymphocytes % 25 % 10/29/23 00:55 Monocytes % 8 % 10/29/23 00:55 Eosinophils % 1 % 10/29/23 00:55 Basophils % 1 % 10/29/23 00:55 Neutrophils # 3.4 k/uL (1.3-7.7) 10/29/23 00:55 Lymphocytes # 1.4 k/uL (1.0-4.8) 10/29/23 00:55 Monocytes # 0.4 k/uL (0-1.0) 10/29/23 00:55 Eosinophils # 0.1 k/uL (0-0.7) 10/29/23 00:55 Basophils # 0.0 k/uL (0-0.2) 10/29/23 00:55 Manual Slide Review Performed 10/29/23 00:55 RBC Morphology Normal 10/29/23 00:55 Macrocytosis Slight 10/29/23 00:55 Sodium 137 mmol/L (137-145) 10/29/23 00:55 Potassium 3.6 mmol/L (3.5-5.1) 10/29/23 04:50 Chloride 98 mmol/L (98-107) 10/29/23 00:55 Carbon Dioxide 28 mmol/L (22-30) 10/29/23 00:55 Anion Gap 11 mmol/L 10/29/23 00:55 BUN 2 mg/dL (9-20) L 10/29/23 00:55 Creatinine 0.52 mg/dL (0.66-1.25) L 10/29/23 00:55 Est GFR (CKD-EPI)AfAm >90 (>60 ml/min/1.73 sqM) 10/29/23 00:55 Est GFR (CKD-EPI)NonAf >90 (>60 ml/min/1.73 sqM) 10/29/23 00:55 Glucose 109 mg/dL (74-99) H 10/29/23 00:55 Calcium 8.0 mg/dL (8.4-10.2) L 10/29/23 00:55 Total Bilirubin 1.8 mg/dL (0.2-1.3) H 10/29/23 00:55 AST 170 U/L (17-59) H 10/29/23 00:55 ALT 44 U/L (4-49) 10/29/23 00:55 Alkaline Phosphatase 176 U/L (38-126) H 10/29/23 00:55 Total Protein 6.6 g/dL (6.3-8.2) 10/29/23 00:55 Albumin 3.5 g/dL (3.5-5.0) 10/29/23 00:55 Urine Color Yellow 10/29/23 02:53 Urine Appearance Clear (Clear) 10/29/23 02:53 Urine pH 7.0 (5.0-8.0) 10/29/23 02:53 Ur Specific [place] 1.012 (1.001-1.035) 10/29/23 02:53 Urine Protein Trace (Negative) H 10/29/23 02:53 Urine Glucose (UA) Negative (Negative) 10/29/23 02:53 Urine Ketones Negative (Negative) 10/29/23 02:53 Urine Blood Negative (Negative) 10/29/23 02:53 Urine Nitrite Negative (Negative) 10/29/23 02:53 Urine Bilirubin 1+ (Negative) H 10/29/23 02:53 Urine Urobilinogen 8.0 mg/dL (<2.0) 10/29/23 02:53 Ur Leukocyte Esterase Trace (Negative) H 10/29/23 02:53 Urine RBC 1 /hpf (0-5) 10/29/23 02:53 Urine WBC 4 /hpf (0-5) 10/29/23 02:53 Urine Mucus Many /hpf (None) H 10/29/23 02:53 Urine Opiates Screen Not Detected (NotDetected) 10/29/23 02:53 Ur Oxycodone Screen Not Detected (NotDetected) 10/29/23 02:53 Urine Methadone Screen Not Detected (NotDetected) 10/29/23 02:53 Ur Barbiturates Screen Not Detected (NotDetected) 10/29/23 02:53 U Tricyclic Antidepress Not Detected (NotDetected) 10/29/23 02:53 Ur Phencyclidine Scrn Not Detected (NotDetected) 10/29/23 02:53 Ur Amphetamines Screen Not Detected (NotDetected) 10/29/23 02:53 U Methamphetamines Scrn Not Detected (NotDetected) 10/29/23 02:53 U Benzodiazepines Scrn Detected (NotDetected) H 10/29/23 02:53 Urine Cocaine Screen Not Detected (NotDetected) 10/29/23 02:53 U Marijuana (THC) Screen Not Detected (NotDetected) 10/29/23 02:53 Influenza Type A (PCR) Not Detected (Not Detectd) 10/29/23 00:50 Influenza Type B (PCR) Not Detected (Not Detectd) 10/29/23 00:50 RSV (PCR) Not Detected (Not Detectd) 10/29/23 00:50 SARS-CoV-2 (PCR) Not Detected (Not Detectd) 10/29/23 00:50 10/29/23 10:02 Patient Name: Blake Garcia Date of : [birth year] Patient Status: Inpatient Attending Provider: Hai Mcwilliams Date: 10/29/23 Initialization Date: 10/29/23 00:30 This is secondary assessment on the 28-year-old male who was hospitalized after patient presented to the ER with severe agitation depression and suicidal ideations Patient also gives a history of chronic alcohol use and a history of poor psychiatric follow-up and treatment Patient says he is not being on any medications for more than a year A Nael states that his family all lives near [place] and that he is currently homeless 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 States he has been depressed for some time. He is supposed to take medications for his mental health however he has not taken them in close to 1 year. He denies plan. No attempts. He feels that the world would be a better place if he was not here. He admits to daily alcohol use. Drinks up to 1/5 a day. He denies illicit drug use. No homicidal ideations. No hallucinations Past history personal and social history could not be dealt in detail at the present time due to patient not very cooperative during this interview and wanting to sleep Mental status examination: Reveals a young male who looks much older for his age Patient is easily arousable but wanted to sleep and is not very cooperative during this interview Affect at this time remains flat Speech was clear coherent and relevant Patient denies any auditory or visual hallucinations There is no evidence of any overt psychosis Patient admits feeling helpless and hopeless but did not express or denies any suicidal ideations or plans Formal and operational judgment and insight are impaired Plan: The patient will be asked was on the unit for further evaluation and treatment Therapy will be focused on providing supportive care improving his coping abilities with a multimodal treatment Patient also participated on the [facility] individual milieu group OT RT PT and pharmacotherapy Approximate the stay would be 7-10 days workforce services representative will be on board regarding placement recommendations Patient will also be monitored with this CIWA score for any alcohol withdrawal symptoms We'll also start the patient initially on Celexa 10 mg daily to start with and gabapentin 200 mg 3 times a day started for alcohol withdrawals Keegan Nael Peterson
[2023-10-29] MEDS: NICOTINE 14MG/24HR PATCH TRANSDERM SCH (12:33)
[2023-10-29] MEDS: GABAPENTIN 300 MG CAP PO SCH (16:17)
--- NOTE | 2023-10-30 03:19 | P.CONS ---
History of Present Illness - Reason for Consult Consult date: 10/30/23 - History of Present Illness The patient is a 28-year-old male with a PMH of alcohol abuse who had presented to the emergency room with complaints of depression and suicidal ideation. The patient was admitted to the mental health unit where he was seen and evaluated. Patient notes that he has been drinking 1/5 of hard liquor daily for the past 3 years and that he has been feeling down about his life due to his multiple stressors in his situation. Denied illicit substance or tobacco use. Denied physical complaints including chest discomfort, shortness of breath, fever, chills, cough, nausea, vomiting, abdominal pain, diarrhea. Review of systems: Pertinent positives and negatives as discussed in HPI, a complete review of systems was performed and all other systems are negative. Physical examination: General: non toxic, no distress, appears at stated age, normal weight Derm: no unusual rashes/lesions, no unusual ecchymoses, warm, dry Head: atraumatic, normocephalic, symmetric Eyes: EOMI, no lid lag, anicteric sclera ENT: Nose and ears atraumatic, no thrush, no pharyngeal erythema Neck: trachea midline, supple Mouth: no lip lesion, mucus membranes moist Cardiovascular: S1S2 reg, no murmur, no edema Lungs: CTA bilateral, no rhonchi, no rales , no accessory muscle use Abdominal: soft, nontender to palpation, no guarding Ext: no gross muscle atrophy, no contractures, Neuro: No gross focal neuro deficits noted Psych: Alert, oriented, appropriate affect Assessment: Alcohol abuse Hypokalemia Abnormal LFTs, likely due to alcohol use Thrombocytopenia, likely secondary to alcohol abuse Macrocytic anemia Depression and suicidal ideation Imaging: None performed Data Review: Hemoglobin 11.6, MCV 103, potassium 2.7, total bilirubin 1.8, AST 170 Plan: Advised on importance of alcohol abuse Monitor potassium levels and replace as needed Check anemia panel Defer management of depression and suicidal ideation to the primary psychiatry service Thank you for allowing us to participate in the care of this patient. We will follow peripherally. Do not hesitate to contact us with questions. Someone can be reached from the [facility] hospitalist group at all hours of the day at [phone]. Past Medical History Past Medical History: Asthma Additional Past Medical History / Comment(s): covid 07/01/21 History of Any Multi-Drug Resistant Organisms: None Reported Past Surgical History: No Surgical Hx Reported Additional Past Surgical History / Comment(s): sinus surgery Past Psychological History: Anxiety, Depression Smoking Status: Vaper Past Alcohol Use History: Abuse, Daily, Heavy Additional Past Alcohol Use History / Comment(s): drinks 1/5 per day x 6 years. Past Drug Use History: None Reported - Past Family History Father Family Medical History: COPD Medications and Allergies Home Medications Medication Instructions Recorded Confirmed Type Albuterol Inhaler [Ventolin Hfa 2 puff INHALATION RT-QID PRN 10/28/23 10/28/23 History Inhaler] Allergies Allergy/AdvReac Type Severity Reaction Status Date / Time latex Allergy Rash/Hives Verified 10/29/23 22:46 Penicillins Allergy Rash/Hives Verified 10/29/23 22:46 all over bidy Physical Exam Vitals: Vital Signs Temp Pulse Pulse Resp BP BP Pulse Ox 10/30/23 00:00 98.0 F 94 16 110/75 98 10/29/23 19:54 98.0 F 123 H 16 108/74 98 10/29/23 18:00 97.6 F 97 16 110/72 99 10/29/23 16:00 98.3 F 98 16 112/70 98 10/29/23 12:00 97.6 F 96 18 123/72 98 10/29/23 09:44 98.2 F 114 H 18 112/66 10/29/23 07:15 97.4 F L 108 H 18 111/74 10/29/23 06:17 97.4 F L 132 H 18 120/79 95 10/29/23 05:21 109 H 18 100/63 99 Intake and Output 10/29/23 10/29/23 10/30/23 14:59 22:59 07:59 Intake Total 0 300 Balance 0 300 Intake: Oral 0 300 Other: Weight 52.526 kg Results CBC & Chem 7: 10/29/23 00:55 10/29/23 04:50 Labs: Abnormal Lab Results - Last 24 Hours (Table) 10/29/23 10/29/23 Range/Units 00:55 02:53 Plt Count 111 L (150-450) k/uL Urine Protein Trace H (Negative) Urine Bilirubin 1+ H (Negative) Ur Leukocyte Esterase Trace H (Negative) Urine Mucus Many H (None) /hpf U Benzodiazepines Scrn Detected H (NotDetected)
[2023-10-30 07:57] LABS: ALT 36 U/L (4-49); AST 136 U/L (17-59); African American GFR (CKD) >90 (>60 ml/min/1.73 sqM); Albumin 3.1 g/dL (3.5-5.0); Alkaline Phosphatase 144 U/L (38-126); Anion Gap 4 mmol/L; Basophils % (A) 1 %; Blood Urea Nitrogen 5 mg/dL (9-20); Calcium 8.3 mg/dL (8.4-10.2); Carbon Dioxide 31 mmol/L (22-30); Chloride 101 mmol/L (98-107); Eosinophils # (A) 0.1 k/uL (0-0.7); Eosinophils % (A) 3 %; Glucose 90 mg/dL (74-99); HCT 29.9 % (39.0-53.0); HGB 10.7 gm/dL (13.0-17.5); Lymphocytes # (A) 1.2 k/uL (1.0-4.8); Lymphocytes % (A) 30 %; MCH 38.4 pg (25.0-35.0); MCHC 35.7 g/dL (31.0-37.0); MCV 107.7 fL (80.0-100.0); Macrocytosis Marked; Mean Platelet Volume 9.4; Monocytes # (A) 0.3 k/uL (0-1.0); Monocytes % (A) 7 %; Neutrophils # (A) 2.2 k/uL (1.3-7.7); Neutrophils % (A) 57 %; Non-African American GFR(CKD) >90 (>60 ml/min/1.73 sqM); Potassium 3.2 mmol/L (3.5-5.1); RBC 2.78 m/uL (4.30-5.90); RDW 15.3 % (11.5-15.5); Sodium 136 mmol/L (137-145); Total Bilirubin 1.9 mg/dL (0.2-1.3); Total Protein 6.2 g/dL (6.3-8.2); WBC 3.9 k/uL (3.8-10.6)
[2023-10-30 08:22] LABS: Platelet Count 68 k/uL (150-450)
[2023-10-30] MEDS: THIAMINE 100 MG TAB PO SCH (08:27)
--- NOTE | 2023-10-30 10:44 | P.PN ---
Subjective Progress Note Date: 10/30/23 Patient Name: Blake Garcia Date of : 89 Patient Status: Inpatient Attending Provider: Hai Mcwilliams Date: 10/30/23 10:02 Initialization Date: 10/29/23 10:02 Subjective data: Patient was seen chart was reviewed and case discussed with the nursing staff The patient was laying in bed and did not seem to be any acute distress Patient's responses were mostly monosyllabic Patient says that his depression is better He says that he is not having any anxiety or restlessness and that the medications are helping He says that he is making progress Patient otherwise did not give any other information Staff reports that the patient is being monitored with a CIWA score which often sure about 13 or 14 but patient has not been any other complaints and has received the lorazepam as needed Diagnostic impression: Adjustment disorder with mixed emotional features Major depressive disorder chronic with acute exacerbation Alcohol use disorder chronic Cannabis use disorder Polysubstance use disorder unspecified Mental status examination: Reveals a young male who looks much older for his age Patient is easily arousable but wanted to sleep and is not very cooperative during this interview Affect at this time remains flat Speech was clear coherent and relevant Patient denies any auditory or visual hallucinations There is no evidence of any overt psychosis Patient admits feeling helpless and hopeless but did not express or denies any suicidal ideations or plans Formal and operational judgment and insight are impaired Plan: The patient will be asked was on the unit for further evaluation and treatment Therapy will be focused on providing supportive care improving his coping abilities with a multimodal treatment Patient also participated on the [facility] individual milieu group OT RT PT and pharmacotherapy Approximate the stay would be 7-10 days consulting services project manager will be on board regarding placement recommendations Patient will also be monitored with this CIWA score for any alcohol withdrawal symptoms We'll also start the patient initially on Celexa 10 mg daily to start with and gabapentin 200 mg 3 times a day started for alcohol withdrawals Keegan Nael M.D. Objective - Vital Signs Vital signs: Vital Signs Temp 98.1 F 10/30/23 05:32 Pulse 103 H 10/30/23 05:32 Resp 18 10/30/23 05:32 BP 123/85 10/30/23 05:32 Pulse Ox 99 10/30/23 05:32 FiO2 Intake & Output 10/29/23 10/30/23 10/30/23 17:59 06:59 18:59 Intake Total Balance Weight Intake: Oral - Labs CBC & Chem 7: 10/30/23 07:24 10/30/23 07:24 Labs: Abnormal Lab Results - Last 24 Hours (Table) 10/30/23 10/30/23 Range/Units 07:24 07:24 RBC 2.78 L (4.30-5.90) m/uL Hgb 10.7 L (13.0-17.5) gm/dL Hct 29.9 L (39.0-53.0) % MCV 107.7 H (80.0-100.0) fL MCH 38.4 H (25.0-35.0) pg Plt Count 68 L (150-450) k/uL Macrocytosis Marked A Sodium 136 L (137-145) mmol/L Potassium 3.2 L (3.5-5.1) mmol/L Carbon Dioxide 31 H (22-30) mmol/L BUN 5 L (9-20) mg/dL Creatinine 0.64 L (0.66-1.25) mg/dL Calcium 8.3 L (8.4-10.2) mg/dL Total Bilirubin 1.9 H (0.2-1.3) mg/dL AST 136 H (17-59) U/L Alkaline Phosphatase 144 H (38-126) U/L Total Protein 6.2 L (6.3-8.2) g/dL Albumin 3.1 L (3.5-5.0) g/dL
[2023-10-30] MEDS: CITALOPRAM HYDROBROMIDE 10 MG TAB PO SCH (12:55)
[2023-10-30] MEDS: LORazepam 1 MG TAB PO PRN (16:59)
[2023-10-30] MEDS: POTASSIUM CHLORIDE ER 20 MEQ TAB.ER PO STA (17:17)
[2023-10-30] MEDS: chlordiazePOXIDE 25 MG CAP PO SCH (17:24)
--- NOTE | 2023-10-31 09:23 | P.PN ---
Subjective Progress Note Date: 10/31/23 Patient Name: Blake Garcia Date of : 89 Patient Status: Inpatient Attending Provider: Hai Mcwilliams Date: 10/31/23 10:02 Initialization Date: 10/29/23 10:02 Subjective data: Patient was seen chart was reviewed and case discussed with the nursing staff Patient reports that he is feeling better Patient was actually seen walking around in the hallway and states that he is thinking clearly Patient has per Dr. Garrido and said that he would like to go back on taking his Zoloft He states that he prefers Zoloft or the Celexa He says that he is ready to go home tomorrow Insight and his problem remains rather limited and was reminded that he was just seen by the hospitalist regarding significant withdrawal symptoms and that he w as now placed on Librium and I am more strict or withdrawal protocol Patient appears to be more accepting and explained Diagnostic impression: Adjustment disorder with mixed emotional features Major depressive disorder chronic with acute exacerbation Alcohol use disorder chronic Cannabis use disorder Polysubstance use disorder unspecified Mental status examination: Reveals a young male who looks much older for his age Patient is easily arousable but wanted to sleep and is not very cooperative during this interview Affect at this time remains flat Speech was clear coherent and relevant Patient denies any auditory or visual hallucinations There is no evidence of any overt psychosis Patient admits feeling helpless and hopeless but did not express or denies any suicidal ideations or plans Formal and operational judgment and insight are impaired Plan: The patient will be asked was on the unit for further evaluation and treatment Therapy will be focused on providing supportive care improving his coping abilities with a multimodal treatment Patient also participated on the [facility] individual milieu group OT RT PT and pharmacotherapy Approximate the stay would be 7-10 days We'll discontinue the Celexa and start Zoloft 50 mg daily to start within titrated to response account services associate will be on board regarding placement recommendations Patient will also be monitored with this CIWA score for any alcohol withdrawal symptoms Continue gabapentin 200 mg 3 times a day started for alcohol withdrawals Keegan Nael M.D. Objective - Vital Signs Vital signs: Vital Signs Temp 98.1 F 10/31/23 05:56 Pulse 112 H 10/31/23 08:04 Resp 18 10/31/23 05:56 BP 120/89 10/31/23 08:04 Pulse Ox 99 10/31/23 05:56 FiO2 Intake & Output 10/30/23 10/31/23 10/31/23 18:59 06:59 18:59 Weight 51.5 kg - Labs CBC & Chem 7: 10/30/23 07:24 10/30/23 07:24 Labs: Abnormal Lab Results - Last 24 Hours (Table) 10/30/23 Range/Units 07:24 Ferritin 661.0 H (22.0-322.0) ng/mL
[2023-10-31 09:53] LABS: African American GFR (CKD) >90 (>60 ml/min/1.73 sqM); Anion Gap 8 mmol/L; Blood Urea Nitrogen 3 mg/dL (9-20); Calcium 8.6 mg/dL (8.4-10.2); Carbon Dioxide 26 mmol/L (22-30); Chloride 108 mmol/L (98-107); Glucose 102 mg/dL (74-99); Non-African American GFR(CKD) >90 (>60 ml/min/1.73 sqM); Potassium 3.6 mmol/L (3.5-5.1); Sodium 142 mmol/L (137-145)
[2023-11-01] MEDS: SERTRALINE 50 MG TAB PO SCH (07:55)
--- NOTE | 2023-11-01 10:11 | P.PN ---
Subjective Progress Note Date: 11/01/23 Patient Name: Blake Garcia Date of : 89 Patient Status: Inpatient Attending Provider: Hai Mcwilliams Date: 11/01/23 10:02 Initialization Date: 10/29/23 10:02 Subjective data: Patient was seen chart was reviewed and case discussed with the nursing staff Patient states that he is completely better and that he has no shakes or tremors and that is ready to be discharged Patient again was reminded that he was going through severe withdrawal symptoms few days ago and had to be started on Librium as well as significant electrolyte imbalance and that he could've gone into seizures and other significant problems from the alcohol withdrawal Patient however seems to have difficulty accepting the recommendations and remains focused on his discharge Denies any suicidal or homicidal ideations thinking remains very concrete and simple Agitation or aggression noted and was redirectable although reluctantly Diagnostic impression: Adjustment disorder with mixed emotional features Major depressive disorder chronic with acute exacerbation Alcohol use disorder chronic Cannabis use disorder Polysubstance use disorder unspecified Mental status examination: Reveals a young male who looks much older for his age Patient is easily arousable but wanted to sleep and is not very cooperative during this interview Affect at this time remains flat Speech was clear coherent and relevant Patient denies any auditory or visual hallucinations There is no evidence of any overt psychosis Patient admits feeling helpless and hopeless but did not express or denies any suicidal ideations or plans Formal and operational judgment and insight are impaired Plan: The patient will be asked was on the unit for further evaluation and treatment Therapy will be focused on providing supportive care improving his coping abilities with a multimodal treatment Patient also participated on the [facility] individual milieu group OT RT PT and pharmacotherapy Approximate the stay would be 7-10 days We'll discontinue the Celexa and start Zoloft 50 mg daily to start within titrated to response business services sales representative will be on board regarding placement recommendations Patient will also be monitored with this CIWA score for any alcohol withdrawal symptoms Continue gabapentin 200 mg 3 times a day started for alcohol withdrawals Continue supportive care [facility] Objective - Vital Signs Vital signs: Vital Signs Temp 98.1 F 10/31/23 22:47 Pulse 114 H 11/01/23 08:01 Resp 18 03/11/24 22:47 BP 108/58 11/01/23 08:01 Pulse Ox 99 10/31/23 22:47 FiO2 - Labs CBC & Chem 7: 10/30/23 07:24 10/31/23 09:04
[2023-11-02 08:47] VITALS: RESP 16
[2023-11-02] MEDS ORDERED: traZODone HCL 50 MG TAB PO PRN (11:34)
--- NOTE | 2023-11-02 11:45 | P.PN ---
Progress Note - Text Progress Note Date: 11/02/23 Interval History: Patient was seen in group, and was directable and agreeable to speak with typewriter ribbon winder in the office. Patient states that today, that the medications are helping with his mood and anxiety. Patient is attending groups. He claims that he is sleeping well, and his appetite is good. States that he no longer has withdraw symptoms. Dedicated Local Truck Driver spoke with patient about rehab, patient refused, states that he cannot afford to take work off, he has too many mouths to feed. Patient focused on di scharge. Dedicated Local Truck Driver told patient that it would probably be Tuesday at the earliest. At this time patient denies any suicidal or homical ideations, intent or plan. Patient denies any auditory, visual hallucinations and denies any paranoia or delusions. Patient denies any side effects from the medications and has been compliant with meds. Mental Status Exam: General Appearance: Patient appears to be stated age is alert, directable, and cooperative. Behavior: Patient is calmly seated without any agitated behavior. Speech: Patient's speech is fluent and nonpressured. Mood/Affect: Mood is improving mildly, affect is congruent and constricted. Suicidality/Homicidality: Patient denies having any suicidal or homicidal ideation intent or plan. Perceptions: Patient denies any visual hallucinations and denies any auditory hallucinations Though content/process: There is no evidence of any delusional thought content and thought process is linear and goal-directed. [place], vague Memory and concentration: AOX3, grossly intact for the purposes of this session Judgment and insight: Improving mildly Assessment Adjustment disorder with mixed emotional features Major depressive disorder chronic with acute exacerbation Alcohol use disorder chronic Cannabis use disorder Polysubstance use disorder unspecified Plan: -Patient continues to meet criteria for inpatient psychiatric admission for sym ptom stabilization and safety. Patient has signed adult voluntary form and medication consent and was placed in patient's chart. -Medications: Zoloft 50 mg daily for mood/anxiety, decrease librium to 10mg qid, will continue to taper down, for withdraw symptoms, add trazodone 50mg qhs for insomnia -When necessary Ativan and Haldol for agitation/aggression. -NRT -nicotine patch -SW on board for discharge planning. Encouraged the patient to participate in milieu.Offered patient rehab, patient refused at this time. Possibly discharge tuesday, if patient continues to improve.
[2023-11-02 14:35] VITALS: BMI 16.7
--- NOTE | 2023-11-03 11:45 | P.PN ---
Progress Note - Text Progress Note Date: 11/03/23 Interval History: Patient was seen in group, and was directable and agreeable to speak with communications writer in the office. Patient states that today, he is doing pretty good. And states that his anxiety is better than usual. Patient is attending groups. He claims that he is sleeping well, and his appetite is good. States that he no longer has withdraw symptoms. Spoke with the patient about medications to help with alcohol cravings, patient declined, stating that he is now done with alcohol. Water Team Leader to ld patient that he will likely be discharged tomorrow. At this time patient denies any suicidal or homical ideations, intent or plan. Patient denies any auditory, visual hallucinations and denies any paranoia or delusions. Patient denies any side effects from the medications and has been compliant with meds. Mental Status Exam: General Appearance: Patient appears to be stated age is alert, directable, and cooperative. Behavior: Patient is calmly seated without any agitated behavior. Speech: Patient's speech is fluent and nonpressured. Mood/Affect: Mood is improving mildly, affect is congruent and constricted. Suicidality/Homicidality: Patient denies having any suicidal or homicidal ideation intent or plan. Perceptions: Patient denies any visual hallucinations and denies any auditory hallucinations Though content/process: There is no evidence of any delusional thought content and thought process is linear and goal-directed. Memory and concentration: AOX3, grossly intact for the purposes of this session Judgment and insight: Improving Assessment Adjustment disorder with mixed emotional features Major depressive disorder chronic with acute exacerbation Alcohol use disorder chronic Cannabis use disorder Polysubstance use disorder unspecified Plan: -Patient continues to meet criteria for inpatient psychiatric admission for symptom stabilization and safety. Patient has signed adult voluntary form and medication consent and was placed in patient's chart. Patient currently refusing rehab and medications for alcohol cravings. -Medications: Zoloft 50 mg daily for mood/anxiety, decrease librium to 10mg tid, will continue to taper down, for withdraw symptoms, with last dose being tomorrow morning. trazodone 50mg qhs for insomnia Offered patient medication for alcohol cravings, patient declined. -When necessary Ativan and Haldol for agitation/aggression. -NRT -nicotine patch -SW on board for discharge planning. Encouraged the patient to participate in milieu.Offered patient rehab, patient refused at this time. Likely discharge tomorrow, if patient continues to improve.
[2023-11-03] MEDS: traZODone HCL 50 MG TAB PO SCH (20:16)
[2023-11-04 05:38] VITALS: BP 108/67; PULSE 70; TEMP 97.9
--- NOTE | 2023-11-04 10:05 | P.DS ---
Providers Date of admission: 10/29/23 05:19 Expected date of discharge: 11/04/23 Attending physician: Hai Mcwilliams MD Consults: 10/29/23 05:26 Consult Physician Routine Consulting Provider: Sonia Hagan Consult Reason/Comments: H&P for mental health admission Do you want consulting provider notified?: Yes Primary care physician: Stated None - Discharge Diagnosis(es) (1) Adjustment disorder with mixed emotional features Current Visit: Yes Status: Acute Priority: High (2) Major depressive disorder Current Visit: Yes Status: Acute Priority: High (3) Alcohol use disorder Current Visit: Yes Status: Acute Priority: High (4) Cannabis use disorder Current Visit: Yes Status: Acute Priority: Medium (5) Polysubstance use disorder Current Visit: Yes Status: Acute Priority: Medium Hospital Course: Admission HPI: Admission note was completed by Dr Nayak "This is secondary assessment on the 28-year-old male who was hospitalized after patient presented to the ER with severe agitation depression and suicidal ideations Patient also gives a history of chronic alcohol use and a history of poor psychiatric follow-up and treatment Patient says he is not being on any medications for more than a year Naveed Nayak states that his family all lives near [place] and that he is currently homeless 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 He is supposed to take medications for his mental health however he has not taken them in close to 1 year. He denies plan. No attempts. He feels that the world would be a better place if he was not here. He admits to daily alcohol use. Drinks up to 1/5 a day. He denies illicit drug use. No homicidal ideations. No hallucinations" Hospital course: Upon admission to the unit patient was directable and agreeable to commence treatment and signed adult voluntary form. Patient got along well with other patients on the unit and followed unit protocol. Patient was compliant with the medications and denied any side effects throughout hospital course. Patient was started on Zoloft 50 mg daily for mood/anxiety, Librium was started and scheduled for alcohol withdrawal and gradually tapered off. Patient was also on CIWA protocol with as needed Ativan for alcohol withdrawal. Trazodone 50 mg nightly as needed for insomnia. Patient was offered alcohol anticraving me dications however declined. Patient spoke of his stressors and engaged in therapy both group and individual. Patient was also seen by medical team for history and physical exam. Throughout the course of the hospitalization patient gradually improved with regards to mood, anxiety, sleep and returned back to their baseline level of functioning. On the day of discharge patient denied any suicidal or homicidal ideations intent or plan denied any auditory or visual hallucinations. Patient endorsed wanting to live for his health and family. The patient denied any access to guns or weapons. Patient denied any paranoia and did not endorse any delusions. Patient does have a significant history of substance abuse and was counseled on abstaining from all substances including alcohol and marijuana. Patient was offered however declined inpatient substance-abuse rehab. Patient was also counseled on the medications and need for regular compliance and was encouraged to follow-up with their outpatient appointment for mental health and also for primary care. Prior to discharge a family meeting will be arranged by high school social science teacher to answer any questions and ensure safety upon discharge. Patient will continue to follow-up with [facility]. Mental status exam: General Appearance: Patient appears to be thin, shaved head, wearing glasses, stated age is alert, pleasant, and cooperative. Patient is in no acute distress and has improved hygiene and grooming Behavior: Patient is calmly seated without any agitated behavior. Speech: Patient's speech is fluent and nonpressured. Mood/Affect: Patient reports their mood is "good", affect is congruent Suicidality/Homicidality: Patient denies having any suicidal or homicidal ideation intent or plan. Perceptions: Patient denies any auditory or visual hallucinations. Though content/process: There is no evidence of any delusional thought content and thought process is linear and goal-directed. Memory and concentration: AOX3, grossly intact for the purposes of this session. Can spell "WORLD" backwards correctly. Judgment and insight: Chronically poor, however has improved with guarded prognosis Impression: Adjustment disorder with mixed emotional features Major depressive disorder chronic with acute exacerbation Alcohol use disorder chronic Cannabis use disorder Polysubstance use disorder unspecified Plan: -Continue with discharge today as patient has improved and stabilized psychiatrically and is not currently an imminent threat to himself and/or others. Patient will remain at chronically elevated risk for harm to self and/or others due to his impulsivity and substance abuse. -Continue medications: Zoloft 50 mg daily for mood/anxiety, Librium was discontinued. Trazodone 50 mg nightly as needed for insomnia. -Patient was counseled on the need for medication compliance and appropriate follow-up at mental health and also primary care for medical issues. Patient verbalized understanding and agreed. -Social work to arrange for and conduct family meeting to ensure safety upon discharge and answer any questions/concerns. Social work also to arrange for patients follow up appointments with [facility] for psychiatric care along with follow up with primary care provider. -Patient counseled on abstaining from recreational drugs and marijuana and alcohol. Was informed/educated on the adverse effects on their physical and mental health. Patient verbally agreed and understood. Patient was offered substance abuse treatment however declined at this time. -Patient was instructed to return to the hospital or seek immediate medical care if their psychiatric or medical symptoms do worsen or reoccur. Allergies Allergy/AdvReac Type Severity Reaction Status Date / Time latex Allergy Rash/Hives Verified 10/29/23 22:46 Penicillins Allergy Rash/Hives Verified 10/29/23 22:46 all over bidy Laboratory Results WBC 3.9 k/uL (3.8-10.6) 10/30/23 07:24 RBC 2.78 m/uL (4.30-5.90) L 10/30/23 07:24 Hgb 10.7 gm/dL (13.0-17.5) L 10/30/23 07:24 Hct 29.9 % (39.0-53.0) L 10/30/23 07:24 MCV 107.7 fL (80.0-100.0) H 10/30/23 07:24 MCH 38.4 pg (25.0-35.0) H 10/30/23 07:24 MCHC 35.7 g/dL (31.0-37.0) 10/30/23 07:24 RDW 15.3 % (11.5-15.5) 10/30/23 07:24 Plt Count 68 k/uL (150-450) L 10/30/23 07:24 MPV 9.4 10/30/23 07:24 Neutrophils % 57 % 10/30/23 07:24 Lymphocytes % 30 % 10/30/23 07:24 Monocytes % 7 % 10/30/23 07: Eosinophils % 3 % 10/30/23 07: Basophils % 1 % 10/30/23 07:24 Neutrophils # 2.2 k/uL (1.3-7.7) 10/30/23 07:24 Lymphocytes # 1.2 k/uL (1.0-4.8) 10/30/23 07: Monocytes # 0.3 k/uL (0-1.0) 10/30/23 07: Eosinophils # 0.1 k/uL (0-0.7) 10/30/23: Basophils # 0.0 k/uL (0-0.2) 10/30/23 07:24 Manual Slide Review Performed 10/30/23 07:24 RBC Morphology Normal 10/29/23 00:55 Macrocytosis Marked A 10/30/23 07:24 Sodium 142 mmol/L (137-145) 10/31/23 09:04 Potassium 3.6 mmol/L (3.5-5.1) 10/31/23 09:04 Chloride 108 mmol/L (98-107) H 10/31/23 09:04 Carbon Dioxide 26 mmol/L (22-30) 10/31/23 09:04 Anion Gap 8 mmol/L 10/31/23 09:04 BUN 3 mg/dL (9-20) L 10/31/23 09:04 Creatinine 0.64 mg/dL (0.66-1.25) L 10/31/23 09:04 Est GFR (CKD-EPI)AfAm >90 (>60 ml/min/1.73 sqM) 10/31/23 09:04 Est GFR (CKD-EPI)NonAf >90 (>60 ml/min/1.73 sqM) 10/31/23 09:04 Glucose 102 mg/dL (74-99) H 10/31/23 09:04 Calcium 8.6 mg/dL (8.4-10.2) 10/31/23 09:04 Ferritin 661.0 ng/mL (22.0-322.0) H 10/30/23 07:24 Total Bilirubin 1.9 mg/dL (0.2-1.3) H 10/30/23 07:24 AST 136 U/L (17-59) H 10/30/23 07:24 ALT 36 U/L (4-49) 10/30/23 07:24 Alkaline Phosphatase 144 U/L (38-126) H 10/30/23 07:24 Total Protein 6.2 g/dL (6.3-8.2) L 10/30/23 07:24 Albumin 3.1 g/dL (3.5-5.0) L 10/30/23 07:24 Vitamin B12 462.0 pg/mL (200.0-944.0) 10/30/23 07:24 RBC Folate 442 ng/mL (280 - 791) 10/30/23 07:24 TSH 2.470 mIU/L (0.465-4.680) 10/30/23 07:24 Urine Color Yellow 10/29/23 02:53 Urine Appearance Clear (Clear) 10/29/23 02:53 Urine pH 7.0 (5.0-8.0) 10/29/23 02:53 Ur Specific [place] 1.012 (1.001-1.035) 10/29/23 02:53 Urine Protein Trace (Negative) H 10/29/23 02:53 Urine Glucose (UA) Negative (Negative) 10/29/23 02:53 Urine Ketones Negative (Negative) 10/29/23 02:53 Urine Blood Negative (Negative) 10/29/23 02:53 Urine Nitrite Negative (Negative) 10/29/23 02:53 Urine Bilirubin 1+ (Negative) H 10/29/23 02:53 Urine Urobilinogen 8.0 mg/dL (<2.0) 10/29/23 02:53 Ur Leukocyte Esterase Trace (Negative) H 10/29/23 02:53 Urine RBC 1 /hpf (0-5) 10/29/23 02:53 Urine WBC 4 /hpf (0-5) 10/29/23 02:53 Urine Mucus Many /hpf (None) H 10/29/23 02:53 Urine Opiates Screen Not Detected (NotDetected) 10/29/23 02:53 Ur Oxycodone Screen Not Detected (NotDetected) 10/29/23 02:53 Urine Methadone Screen Not Detected (NotDetected) 10/29/23 02:53 Ur Barbiturates Screen Not Detected (NotDetected) 10/29/23 02:53 U Tricyclic Antidepress Not Detected (NotDetected) 10/29/23 02:53 Ur Phencyclidine Scrn Not Detected (NotDetected) 10/29/23 02:53 Ur Amphetamines Screen Not Detected (NotDetected) 10/29/23 02:53 U Methamphetamines Scrn Not Detected (NotDetected) 10/29/23 02:53 U Benzodiazepines Scrn Detected (NotDetected) H 10/29/23 02:53 Urine Cocaine Screen Not Detected (NotDetected) 10/29/23 02:53 U Marijuana (THC) Screen Not Detected (NotDetected) 10/29/23 02:53 Influenza Type A (PCR) Not Detected (Not Detectd) 10/29/23 00:50 Influenza Type B (PCR) Not Detected (Not Detectd) 10/29/23 00:50 RSV (PCR) Not Detected (Not Detectd) 10/29/23 00:50 SARS-CoV-2 (PCR) Not Detected (Not Detectd) 10/29/23 00:50 Vital Signs Temp 97.9 F 11/04/23 05:13 Pulse 70 11/04/23 05:13 Resp 16 11/04/23 05:13 BP 108/67 11/04/23 05:13 Pulse Ox 99 10/31/23 22:47 FiO2 Patient Condition at Discharge: Stable Plan - Discharge Summary Discharge Rx Participant: Yes New Discharge Prescriptions: New traZODone HCL [Desyrel] 50 mg PO HS PRN 14 Days #14 tab PRN Reason: Insomnia Folic Acid 1 mg PO DAILY tab Nicotine 14Mg/24Hr Patch [Habitrol] 1 patch TRANSDERM DAILY 14 Days #14 patch Multivitamins, Thera [Multivitamin (formulary)] 1 each PO DAILY tab Thiamine [Vitamin B-1] 100 mg PO DAILY tab Sertraline [Zoloft] 50 mg PO DAILY 30 Days #30 tab Continue Albuterol Inhaler [Ventolin Hfa Inhaler] 2 puff INHALATION RT-QID PRN PRN Reason: Shortness Of Breath Discharge Medication List Albuterol Inhaler [Ventolin Hfa Inhaler] 2 puff INHALATION RT-QID PRN 03/08/24 [History] Folic Acid 1 mg PO DAILY tab 11/04/23 [Rx] Multivitamins, Thera [Multivitamin (formulary)] 1 each PO DAILY tab 11/04/23 [Rx] Nicotine 14Mg/24Hr Patch [Habitrol] 1 patch TRANSDERM DAILY 14 Days #14 patch 11/04/23 [Rx] Sertraline [Zoloft] 50 mg PO DAILY 30 Days #30 tab 11/04/23 [Rx] Thiamine [Vitamin B-1] 100 mg PO DAILY tab 11/04/23 [Rx] traZODone HCL [Desyrel] 50 mg PO HS PRN 14 Days #14 tab 11/04/23 [Rx] Follow up Appointment(s)/Referral(s): [facility] [Outside] - 11/10/23 11:30 am (with Aby) None,Stated [Primary Care Provider] - 1-2 days Activity/Diet/Wound Care/Special Instructions: Avoid the use of street drugs and alcohol. Take all medications as prescribed. When you are in need of refills on your medications, please contact your medical provider and/or outpatient psychiatrist/provider to have this done. Please go to your scheduled outpatient appointment for aftercare treatment. If symptoms return or become worse, call the crisis line at and/or go to the nearest emergency room for evaluation. National Suicide Hotline 158. Discharge/Stand Alone Forms: AA Meetings [facility] Discharge Disposition: HOME SELF-CARE
== END 2023-11-04 12:25 | disposition home or self-care (01) | DRG 755 ==
LOC: EC 20:39 → 3MHU 10-29 05:19
PROVIDERS: ADMIT Psychiatry & Neurology Psychiatry; ATTEND Psychiatry & Neurology Psychiatry
DX: F43.23 Adjustment disorder with mixed anxiety and depressed mood (principal); R79.89 Other specified abnormal findings of blood chemistry; D53.9 Nutritional anemia, unspecified; D69.59 Other secondary thrombocytopenia; E87.6 Hypokalemia; F10.139 Alcohol abuse with withdrawal, unspecified; F19.10 Other psychoactive substance abuse, uncomplicated; F12.10 Cannabis abuse, uncomplicated; F17.200 Nicotine dependence, unspecified, uncomplicated; J45.909 Unspecified asthma, uncomplicated; R45.851 Suicidal ideations; Z79.899 Other long term (current) drug therapy; Z82.5 Family history of asthma and other chronic lower respiratory diseases; Z59.00 Homelessness unspecified; Z86.16 Personal history of COVID-19; Z11.52 Encounter for screening for COVID-19
CPT/HCPCS: 36415; 80048; 80053; 80306; 81001; 82075; 82607; 82728; 82747; 84132; 84443; 85025; 87636; 96365; 96366; 96372; 99285

== ENCOUNTER 2025-01-29 19:48 | Emergency (ER) | payer OTHER ==
--- NOTE | 2025-01-29 20:05 | ED ---
Psych HPI - General Source: patient Mode of arrival: ambulatory Limitations: no limitations <Jazzy Pacheco - Last Filed: 01/29/25 20:05> <Pito Oneill - Last Filed: 01/31/25 00:39> - General Stated Complaint: Mental Health Time Seen by Provider: 01/29/25 20:05 - History of Present Illness Initial Comments: Quick note: 29-year-old male presented to ER for evaluation of suicidal ideation. Patient states he wants to shoot himself. He does not have access to guns currently. Patient does admit to alcohol consumption last drink approximately 1 hour prior to arrival. He denies any homicidal ideation, auditory or visual hallucinations. (Jazzy Pacheco) - Related Data Home Medications Medication Instructions Recorded Confirmed Albuterol Inhaler [Ventolin Hfa 2 puff INHALATION RT-QID PRN 10/28/23 10/28/23 Inhaler] Previous Rx's Medication Instructions Recorded Folic Acid 1 mg PO DAILY tab 11/04/23 Multivitamins, Thera [Multivitamin 1 each PO DAILY tab 11/04/23 (formulary)] Nicotine 14Mg/24Hr Patch [Habitrol] 1 patch TRANSDERM DAILY 14 Days 11/04/23 #14 patch Sertraline [Zoloft] 50 mg PO DAILY 30 Days #30 tab 11/04/23 Thiamine [Vitamin B-1] 100 mg PO DAILY tab 11/04/23 traZODone HCL [Desyrel] 50 mg PO HS PRN 14 Days #14 tab 11/04/23 Allergies Allergy/AdvReac Type Severity Reaction Status Date / Time latex Allergy Rash/Hives Verified 10/29/23 22:46 Penicillins Allergy Rash/Hives Verified 10/29/23 22:46 all over bidy Review of Systems ROS Other: All systems not noted in ROS Statement are negative. <Jazzy Pacheco - Last Filed: 01/29/25 20:05> ROS Other: All systems not noted in ROS Statement are negative. <Pito Oneill - Last Filed: 01/31/25 00:39> ROS Statement: Those systems with pertinent positive or pertinent negative responses have been documented in the HPI. Past Medical History Past Medical History: Asthma Additional Past Medical History / Comment(s): covid 07/01/21 History of Any Multi-Drug Resistant Organisms: None Reported Past Surgical History: No Surgical Hx Reported Additional Past Surgical History / Comment(s): sinus surgery Past Psychological History: Anxiety, Depression Smoking Status: Current every day smoker Past Alcohol Use History: Abuse, Daily, Heavy Past Drug Use History: None Reported - Past Family History Father Family Medical History: COPD <Jazzy Pacheco - Last Filed: 01/29/25 20:05> General Exam <Jazzy Pacheco - Last Filed: 01/29/25 20:05> General appearance: alert, appears intoxicated Head exam: Present: atraumatic, normocephalic Eye exam: Present: normal appearance, PERRL ENT exam: Present: normal exam Neck exam: Present: normal inspection. Absent: tenderness, meningismus Respiratory exam: Present: normal lung sounds bilaterally. Absent: respiratory distress Cardiovascular Exam: Present: regular rate, normal rhythm GI/Abdominal exam: Present: soft. Absent: distended Extremities exam: Present: normal inspection, normal capillary refill Neurological exam: Present: alert, oriented X3, CN II-XII intact. Absent: motor sensory deficit Psychiatric exam: Present: depressed, anxious, suicidal ideation Skin exam: Present: warm, dry, intact. Absent: cyanosis, diaphoretic <Pito Oneill - Last Filed: 01/31/25 00:39> - General Exam Comments Initial Comments: Visual Physical Exam Vital signs reviewed General: Well-appearing, nontoxic, no acute distress. Head: Normocephalic, atraumatic Eyes: PERRLA, EOMI ENT: Airway patent Chest: Nonlabored breathing Skin: No visual rash, normal skin tone Neuro: Alert and oriented 3 Musculoskeletal: No gross abnormalities (Jazzy Pacheco) Course Vital Signs 01/29/25 01/30/25 20:16 03:06 Temperature 98.5 F 99 F Pulse Rate 113 H 101 H Respiratory 18 17 Rate Blood Pressure 135/90 131/84 O2 Sat by Pulse 100 98 Oximetry Medical Decision Making <Jazzy Pacheco - Last Filed: 01/29/25 20:05> <Pito Oneill - Last Filed: 01/31/25 00:39> - Medical Decision Making I performed the quick note portion of this chart. Electronically signed by FRANCIS Linaresiha,Jazzy) Was pt. sent in by a medical professional or institution ([facility], [facility], urgent care, hospital, or [facility]...) When possible be specific @ -No Did you speak to anyone other than the patient for history (EMS, parent, family, police, friend...)? What history was obtained from this source @ -No Did you review nursing and triage notes (agree or disagree)? Why? @ -I reviewed and agree with nursing and triage notes Were old charts reviewed (outside hosp., previous admission, EMS record, old EKG, old radiological studies, urgent care reports/EKG's, [facility] records)? Report findings @ -No old charts were reviewed Differential Mental Health Depression, anxiety, bipolar, psychosis, schizophrenia, borderline personality, situational depression, adjustment disorder, behavioral disorder, brain tumor, malingering, substance abuse, encephalopathy, medication reaction, dementia, hypothyroidism, degenerative neurologic disorder, lupus.... This is not meant to be all-inclusive list EKG interpreted by me (3pts min.). @ -As above X-rays interpreted by me (1pt min.). @ -None done CT interpreted by me (1pt min.). @ -None done U/S interpreted by me (1pt. min.). @ -None done What testing was considered but not performed or refused? (CT, X-rays, U/S, labs)? Why? @ -None What meds were considered but not given or refused? Why? @ -None Did you discuss the management of the patient with other professionals (professionals i.e. [facility], [facility], lab, RT, psych nurse, child protective services social worker, palletizer, teacher, systems support officer, outpatient case manager)? Give summary @ -No Was smoking cessation discussed for >3mins.? @ -No Was critical care preformed (if so, how long)? @ -No Were there social determinants of health that impacted care today? How? (Homelessness, low income, unemployed, alcoholism, drug addiction, transportation, low edu. Level, literacy, decrease access to med. care, senior living, rehab)? @ -No Was there de-escalation of care discussed even if they declined (Discuss DNR or withdrawal of care, Hospice)? DNR status @ -No What co-morbidities impacted this encounter? (DM, HTN, Smoking, COPD, CAD, Cancer, CVA, ARF, Chemo, Hep., AIDS, mental health diagnosis, sleep apnea, morbid obesity)? @ -Depression, alcohol abuse Was patient admitted / discharged? Hospital course, mention meds given and route, prescriptions, significant lab abnormalities, going to OR and other pertinent info. @ -Patient is presenting to the emergency department for suicidal ideation with plan. Patient is intoxicated initial alcohol is 0.16 requiring 5 hours to sobriety. He is medically evaluated and can be cleared once he is sober. Care signed out at shift change awaiting sobriety and EPS evaluation. (Pito Oneill) Disposition <Jazzy Pacheco - Last Filed: 01/29/25 20:05> Is patient prescribed a controlled substance at d/c from ED?: No <Pito Oneill - Last Filed: 01/31/25 00:39> Clinical Impression: Alcohol intoxication, Depression Disposition: HOME SELF-CARE Condition: Stable Referrals: None,Stated [Primary Care Provider] - 1-2 days
[2025-01-30 03:07] VITALS: BP 131/84; PULSE 101; RESP 17; TEMP 99
== END 2025-01-30 03:32 | disposition home or self-care (01) ==
LOC: EC 19:48
DX: F10.129 Alcohol abuse with intoxication, unspecified (principal); F32.A Depression, unspecified; F17.200 Nicotine dependence, unspecified, uncomplicated; Z88.0 Allergy status to penicillin; Z91.040 Latex allergy status; Y90.9 Presence of alcohol in blood, level not specified
CPT/HCPCS: 82075; 99284